=== PATIENT | female | born 1940 | race Caucasian/White ===

== ENCOUNTER 2021-09-02 11:30 | Inpatient (IN) | payer MEDICARE, SELFPAY ==
[2021-09-02] VITALS (7 sets, daily range): BP systolic 129–173; BP diastolic 72–93; PULSE 53–70; RESP 16–20; TEMP 37; O2SAT 92–96; BMI 31.8; BMI 32.3
--- NOTE | 2021-09-02 | CT_ITS ---
WS: [id number] CT HEAD NONCONTRAST HISTORY: STROKE ALERT TECHNIQUE: Contiguous axial imaging performed through the brain in 2.5 mm imaging. Bone and soft tiss ue windows. Sagittal and coronal reformats reviewed. All CT scans at [facility] use at least one of these dose optimization techniques: automated exposure control; mA and/or kV adjustment per pa tient size (includes targeted exams where dose is matched to clinical indication); or iterative recon struction. DLP: 807.65 mGy-cm. COMPARISON: 01/24/2014 No acute intracranial hemorrhage, midline shift or mass effect. There is extensive chronic white matter ischemic disease and numerous bilateral lacunar infarcts. Mod erate progression of the chronic ischemic changes in the infarct since the prior examination. Large l acunar infarct involves the LEFT caudate head and the internal capsule. Large lacunar infarct in the RIGHT thalamus. There are additional smaller lacunae. No focal area of sulcal effacement. Ventricles: Normal size with no hydrocephalus. Paranasal sinuses: As visualized are clear. Mastoid air cells: Well pneumatized. Calvarium and scalp: Skull is intact with no soft tissue edema or swelling. CT/CT head wo con* [id number] IMPRESSION: 1. No acute hemorrhage or edema. 2. Advanced chronic microvascular ischemic disease with numerous bilateral lac unar infarcts. Chronic ischemic disease and lacunar infarcts have progressed si nce 01/24/2014.
--- NOTE | 2021-09-02 11:41 | CT_ITS ---
WS: [id number] CT ANGIOGRAM CEREBRAL AND CAROTID ARTERIES HISTORY: cva TECHNIQUE: CT angiogram is performed of the carotid and cerebral arteries. During arterial injection imaging is obtained from the skull vertex to the aortic arch in 1.25 mm imaging. Coronal and sagittal reformats are submitted. Additional multi planar reformats of the carotid and cerebral arteries are submitted, MIP imaging also reviewed. NASCET criteria utilized. [facility] e at least one of these dose optimization techniques: automated exposure control; mA and/or kV adjust ment per patient size (includes targeted exams where dose is matched to clinical indication); or iter ative reconstruction. CONTRAST: Omnipaque 350; 95 mL IV. DLP: 4879.11 mGy.cm COMPARISON: None available. Carotid Angiogram: Right carotid: Common carotid artery: Tortuous with intimal thickening and plaque. No high-grade stenosis. Internal carotid artery: Moderate amount of plaque in the proximal ICA. There is a very large loop wi th dense calcified plaque. Calculated at 51%. External carotid artery: Patent. Left carotid: Common carotid artery: Arises normally from the aorta. Tortuous loop and atherosclerotic plaque. Port ions of the proximal ICA are obscured by dense contrast. Internal carotid artery: Tortuous ICA crosses the midline to the RIGHT. Calculated stenosis 37%. External carotid artery: Patent. Right vertebral artery: Intermittently visualized very small caliber RIGHT vertebral artery. Left vertebral artery: Tortuous with plaque. No occlusion. Subclavian arteries: 50% stenosis involving the origin of the LEFT subclavian artery. Very tortuous s ubclavian arteries. Upper thorax: Significantly degraded by motion. Heavy atherosclerotic plaque within the aorta. Thyroid gland: Atrophic LEFT thyroid lobe. Osseous structures: Severe degenerative disc disease and spondylosis throughout the cervical spine. CEREBRAL ANGIOGRAM: Intracranial vertebral arteries: Very small caliber distal RIGHT vertebral artery. Normal LEFT verteb ral artery. Basilar artery: No significant stenosis or occlusion. No aneurysm. Intracranial Internal carotid arteries: Patent but tortuous. Calcified plaque with no stenosis. Middle cerebral arteries: Normal. Anterior cerebral arteries and ACOM: Normal. Posterior cerebral arteries and PCOM's: Normal. Dural venous sinuses are normally enhancing. Mastoid air cells: Normal. Paranasal sinuses: Normal. Calvarium: Normal. CT/CT angio headneck* [id number] IMPRESSION: 1. Marked tortuosity of the carotid and subclavian arteries bilaterally. 2. There is extensive calcified plaque and intimal thickening throughout the c arotid arteries. Highest amount of plaque is in the proximal RIGHT ICA with beata nosis measured at 51%. 3. There is a short segment of the LEFT common carotid artery which is poorly visualized due to high density contrast within the jugular vein obscuring the c arotid artery. 4. Intermittently visualized and small caliber RIGHT vertebral artery. This ma y be congenital or due to atherosclerotic disease. 5. At least 50% stenosis involving the origin of the LEFT subclavian artery.
--- NOTE | 2021-09-02 11:41 | ECG_ITS ---
[facility] Test Date: 2021-09-02 Pat Name: Cynthia Taveras Department: Room: Gender: Female Drum Builder: : 1940 Requested By: Augie Smith Order Number: [id number] Murphy MD: Christophe Lakhani M.D. Measurements Intervals [place] Rate: 56 P: 7 CT: 144 QRS: 21 QRSD: 94 T: -36 QT: 472 QTc: 456 Interpretive Statements SINUS BRADYCARDIA LEFT VENTRICULAR HYPERTROPHY AND ST-T CHANGE [VOLTAGE CRITERIA PLUS ST/T ABNORMALITY] No previous ECG available for comparison Electronically Signed On 09-02-2021 16:45:03 BOTTOM BRUSHER by Christophe Lakhani M.D. [id number]
--- NOTE | 2021-09-02 11:44 | ED_ITS ---
HPI - Neuro Symptoms/Deficit General: Chief Complaint: Neuro Symptoms/Deficit Stated Complaint: SLURRED SPEECH Time Seen by Provider: 09/02/21 11:35 History of Present Illness: HPI Narrative: 81-year-old female history of previous stroke presents due to garbled speech and expressive aphasia. Symptoms started approximately 45 minutes prior to arrival and 10:50. She denies any blood thinners. Denies recent surgery or GI bleed. Denies any focal numbness weakness or tingling. Denies any headache. Review of Systems Narrative: - CONSTITUTIONAL: Denies weight loss, fever and chills. - HEENT: Denies changes in vision and hearing. - RESPIRATORY: Denies SOB and cough. - CV: Denies palpitations and CP. - GI: Denies abdominal pain, nausea, vomiting and diarrhea. - : Denies dysuria and urinary frequency. - MSK: Denies myalgia and joint pain. - SKIN: Denies rash and pruritus. - NEUROLOGICAL: As above - PSYCHIATRIC: Denies suicidal ideation NIH stroke score NIHSS: Level Of Consciousness - 1a: 0 Level Of Consciousness Questions - 1b: Both Correct Level Of Consciousness Commands - 1c: Both Correct Best Gaze - 2: Normal Visual Richardson - 3: No Visual Loss Facial Palsy - 4: Normal Motor Arm Right - 5: No Drift Motor Arm Left - 5: Drift Motor Leg Right - 6: No Drift Motor Leg Left - 6: No Drift Limb Ataxia - 7: Present In One Limb Sensory - 8: Normal Best Language - 9: Mild/Moderate Aphasia Dysarthia - 10: Mild/Moderate Dysarthia Extinction And Inattention - 11: 0 Score: Total Score: 4 Physical Exam Narrative: EXAM NARRATIVE: - GENERAL: Alert and oriented x 3. No acute distress. Well-nourished. - EYES: EOMI. Anicteric. - HENT: Atraumatic, no C-spine tenderness. Moist mucous membranes. No scleral icterus. No cervical lymphadenopathy. - LUNGS: Clear to auscultation bilaterally. No accessory muscle use. Equal lung sounds bilaterally. No respiratory distress. - CARDIOVASCULAR: Regular rate and rhythm. No murmur. No JVD. - ABDOMEN: Soft, non-tender and non-distended. Negative CVA tenderness bilaterally, no rebound or guarding, negative Osborne sign. No palpable masses. - EXTREMITIES: No edema. Non-tender. - SKIN: No rashes or lesions. Warm. - NEUROLOGIC: GCS 15, no meningismus, OTHERWISE ABOVE - PSYCHIATRIC: Cooperative. Appropriate mood and affect. Course Vital Signs: Vital signs: Vital Signs Pulse Rate 53 L 09/02/21 14:06 Respiratory Rate 20 H 09/02/21 14:06 Blood Pressure 169/80 09/02/21 14:06 Pulse Oximetry 96 09/02/21 14:06 MDM - Neuro Symptoms/Deficit MDM Narrative: Medical decision making narrative: 81-year-old female presents due to dysarthria and expressive aphasia. She is hemodynamically stable afebril e nontoxic-appearing. As she has presentation within 1 hour from time of onset of symptoms and is not blood thinners and denies recent surgery or GI bleed neurology was consulted and evaluated patient at bedside. At this time there is concern for stroke and symptoms rapidly improved so TPA was held off at this time. CT scan does not reveal any intracranial hemorrhage or acute abnormality. CTA revealed several filling defects in the neck but no intracranial large arterial occlusion. Remainder of lab work and imaging reviewed. Discussed with hospitalist and they agreed patient would benefit from admission. Patient admitted in stable condition to. Further evaluation management per hospitalist team. Lab Data: Labs: Lab Results 09/02/21 09/02/21 09/02/21 11:20 11:20 11:20 WBC 7.2 10^3/uL 10^3/ uL (4.0-10.0) RBC 5.07 10^6/uL 10^6 /uL (4.1-5.3) Hgb 14.0 g/dL g/dL (11.5-15.3) Hct 44.5 % % (37.0-47.0) MCV 87.8 fl fl (81-99) MCH 27.6 pg L pg (28.0-34.0) MCHC 31.5 g/dL g/dL (30.0-36.0) RDW 13.5 % % (12.1-15.1) Plt Count 245 10^3/cmm 10^3 /cmm (130-400) MPV 12.4 fL H fL (7.4-10.4) Neut % (Auto) 63.2 % % Lymph % (Auto) 24.0 % % Evangeline % (Auto) 10.2 % % Eos % (Auto) 1.5 % % Baso % (Auto) 0.8 % % Neut # (Auto) 4.57 10^3/uL 10^3 /uL (1.8-7.7) Lymph # (Auto) 1.7 10^3/uL 10^3/ uL (0.8-4.8) Evangeline # (Auto) 0.7 10^3/uL 10^3/ uL (0.2-0.9) Eos # (Auto) 0.1 10^3/uL 10^3/ uL (0.0-0.8) Baso # (Auto) 0.1 10^3/uL 10^3/ uL (0.0-0.1) Nucleated RBC % (a uto) 0 % % Nucleated RBCs # 0.0 /100WBC /100W BC PT 12.50 SECONDS SEC ONDS (12.1-14.9) INR 0.91 (0.8-1.2) APTT 28.9 SECONDS SECO NDS (23.9-36.7) Sodium 143 mmol/L mmol/L (136-145) Potassium 3.6 mmol/L mmol/L (3.5-5.1) Chloride 105 mmol/L mmol/L (98-107) Carbon Dioxide 28 mmol/L mmol/L (22-29) Anion Gap 13.6 (5-19) BUN 15 mg/dL mg/dL (8-23) Creatinine 1.0 mg/dL H mg/dL (0.5-0.9) GFR Calculation Not Reportable Glucose 209 mg/dL H mg/dL (65-115) POC Glucose Calculated Osmolal ity 303 mOsm/kg H mOs m/kg (285-295) Calcium 8.9 mg/dL mg/dL (8.5-10.5) Total Bilirubin 0.4 mg/dL mg/dL (0.15-1.2) AST 12 U/L U/L (0-32) ALT 8 U/L U/L (0-33) Alkaline Phosphata se 62 IU/L IU/L (35-105) Total Protein 6.1 g/dL L g/dL (6.6-8.7) Albumin 3.4 g/dL L g/dL (3.5-5.2) Globulin 2.7 g/dL g/dL (1.3-4.6) Ethyl Alcohol < 10 mg/dL mg/dL (0-10) 09/02/21 11:56 WBC RBC Hgb Hct MCV MCH MCHC RDW Plt Count MPV Neut % (Auto) Lymph % (Auto) Evangeline % (Auto) Eos % (Auto) Baso % (Auto) Neut # (Auto) Lymph # (Auto) Evangeline # (Auto) Eos # (Auto) Baso # (Auto) Nucleated RBC % (a uto) Nucleated RBCs # PT INR APTT Sodium Potassium Chloride Carbon Dioxide Anion Gap BUN Creatinine GFR Calculation Glucose POC Glucose 194 mg/dL H mg/dL (70-110) Calculated Osmolal ity Calcium Total Bilirubin AST ALT Alkaline Phosphata se Total Protein Albumin Globulin Ethyl Alcohol EKG Data^: EKG 1: Other EKG comments: Sinus bradycardia, rate of 56, LVH is present, no sign of acute ischemia or other acute abnormality. Critical Care Time Critical Care Time: Critical Care Time: Yes Total Critical Care Time: 30 Attestation: This case had a high probability of a clinically significant, zeina den, or life threatening deterioration of this patient's condition which required my full and direct attention, intervention and personal management. Discharge Plan Discharge Prescriptions: No Action Prozac 40 mg Capsule 40 mg PO DAILY RF: 0 trazodone 50 mg Tablet 50 mg PO BEDTIME RF: 0 atenolol 100 mg Tablet 100 mg PO DAILY RF: 0 Fosamax 70 mg Tablet 70 mg PO Q7D RF: 0 lovastatin 40 mg Tablet 40 mg PO DAILY RF: 0 Aspir-81 81 mg Tablet,Delayed Release (Dr/Ec) 81 mg PO DAILY RF: 0 clonidine HCl 0.2 mg Tablet 0.2 mg PO BID RF: 0 amlodipine 10 mg Tablet 10 mg PO DAILY RF: 0 Lopid 600 mg Tablet 600 mg PO BID RF: 0 Prilosec 20 mg Capsule,Delayed Release(Dr/Ec) 20 mg PO BID RF: 0 benazepril 20 mg Tablet 20 mg PO DAILY RF: 0 Lasix 20 mg Tablet 20 mg PO DAILY RF: 0 Lantus Solostar U-100 Insulin 100 unit/mL (3 mL) Insulin Pen 50 unit SUBCUT DAILY RF: 0 potassium chloride 20 mEq Tablet Extended Release 20 meq PO DAILY RF: 0 Coding Level of Care Code ED Television Station Manager for Chg Fwd
[2021-09-02 11:56] LABS: Basophils # 0.1 10^3/uL (0.0-0.1); Basophils % 0.8 %; Eosinophils # 0.1 10^3/uL (0.0-0.8); Eosinophils % 1.5 %; Hematocrit 44.5 % (37.0-47.0); Lymphocytes # 1.7 10^3/uL (0.8-4.8); Mean Corpuscular HGB Conc 31.5 g/dL (30.0-36.0); Mean Corpuscular Hemoglobin 27.6 pg (28.0-34.0); Mean Corpuscular Volume 87.8 fl (81-99); Mean Platelet Volume 12.4 fL (7.4-10.4); Monocytes # 0.7 10^3/uL (0.2-0.9); Monocytes % 10.2 %; Neutrophils # 4.57 10^3/uL (1.8-7.7); Neutrophils % 63.2 %; Nucleated Red Blood Cells % 0 %; Platelet Count 245 10^3/cmm (130-400); Red Blood Count 5.07 10^6/uL (4.1-5.3); Red Cell Distribution Width 13.5 % (12.1-15.1); White Blood Count 7.2 10^3/uL (4.0-10.0)
[2021-09-02 11:59] LABS: Glucose Point of Care 194 mg/dL (70-110)
[2021-09-02 12:19] LABS: INR 0.91 (0.8-1.2)
[2021-09-02 12:20] LABS: Partial Thromboplastin Time 28.9 SECONDS (23.9-36.7)
[2021-09-02 12:29] LABS: Alanine Aminotransferase 8 U/L (0-33); Albumin Level 3.4 g/dL (3.5-5.2); Alkaline Phosphatase 62 IU/L (35-105); Anion Gap 13.6 (5-19); Aspartate Amino Transferase 12 U/L (0-32); Blood Urea Nitrogen 15 mg/dL (8-23); Calcium 8.9 mg/dL (8.5-10.5); Carbon Dioxide 28 mmol/L (22-29); Chloride 105 mmol/L (98-107); Globulin 2.7 g/dL (1.3-4.6); Glucose 209 mg/dL (65-115); Osmolality Calculated 303 mOsm/kg (285-295); Potassium 3.6 mmol/L (3.5-5.1); Sodium 143 mmol/L (136-145); Total Bilirubin 0.4 mg/dL (0.15-1.2); Total Protein 6.1 g/dL (6.6-8.7)
[2021-09-02 12:31] LABS: Alcohol Level < 10 mg/dL (0-10)
--- NOTE | 2021-09-02 12:52 | PC.PHAR ---
pt unable to verify medications-medications entered are meds that clarissa has filled recently-pt states she takes aspirin daily-
[2021-09-02] MEDS: iohexol 350 mg/mL 100 mL Btl IV (13:53)
--- NOTE | 2021-09-02 16:53 | P.HP_ITS ---
Providers/Chief Complaint Chief Complaint: SLURRED SPEECH History of Present Illness Cynthia Taveras is a 81 year old female with past medical history of diabetes, hypertension, dyslipidemia, CVA, came in with chief complaint of acute onset of garbled speech and expressive aphasia.Symptoms started approximately 45 minutes prior to arrival to the ER.Upon arrival in the ER she was seen by neurologist Dr. Ca and at that point in time since her symptoms had completely resolved she was not a candidate for TPA. Her NIH stroke scale on arrival was 4. When I examined the patient, she was alert awake oriented, speech was normal, denied any weakness, in any body part, denied any tingling numbness, headache confusion, dizziness, chest pain palpitations shortness of, any loss of bladder and bowel movement control. Pertinent imaging study: CT of the head without contrast: No acute intracranial pathology.Advanced chronic microvascular ischemic disease with numerous bilateral lacunar infarcts. CTA head and neck: No significant stenosis EKG: Sinus bradycardia,LVH Review of Systems Const: Denies: fever(s), chills, body aches, change in appetite or diaphoresis Card: Denies: palpitations, edema, swelling of feet/ankles, dyspnea on exertion, orthopnea or leg pain with exertion Resp: Denies: dyspnea, productive cough, wheezing or pain on inspiration GI: Denies: abdominal pain, nausea, vomiting, diarrhea or constipation : Denies: flank pain Musc: Denies: back pain, extremity pain or extremity swelling Neuro: Denies: headache(s), difficulty walking or confusion Medications/Allergies Home Medications Medication Instructions Recorded Confirmed Last Taken Type alendronate [Fosamax] 70 mg PO Q7D 09/02/21 09/02/21 Unknown History amlodipine 10 mg PO DAILY 09/02/21 09/02/21 Unknown History aspirin [Aspir-81] 81 mg PO DAILY 09/02/21 09/02/21 Unknown History atenolol 100 mg PO DAILY 09/02/21 09/02/21 Unknown History benazepril 20 mg PO DAILY 09/02/21 09/02/21 Unknown History clonidine HCl 0.2 mg PO BID 09/02/21 09/02/21 Unknown History fluoxetine [Prozac] 40 mg PO DAILY 09/02/21 09/02/21 Unknown History furosemide [Lasix] 20 mg PO DAILY 09/02/21 09/02/21 Unknown History gemfibrozil [Lopid] 600 mg PO BID 09/02/21 09/02/21 Unknown History insulin glargine [Lantus Solostar 50 unit SUBCUT DAILY 09/02/21 09/02/21 Unknown History U-100 Insulin] lovastatin 40 mg PO DAILY 09/02/21 09/02/21 Unknown History omeprazole [Prilosec] 20 mg PO BID 09/02/21 09/02/21 Unknown History potassium chloride 20 meq PO DAILY 09/02/21 09/02/21 Unknown History trazodone 50 mg PO BEDTIME 09/02/21 09/02/21 Unknown History Allergies Allergy/AdvReac Type Severity Reaction Status Date / Time Unable to Assess Allergy Unverified 09/02/21 12:51 Vitals/I&O/Wt Last Vital Signs Pulse 70 09/02/21 15:53 Resp 20 H 09/02/21 15:53 BP 169/80 09/02/21 14:06 Pulse Ox 92 09/02/21 15:53 Weight last 48 hrs Weight 78.97 kg Physical Exam Const: COMMON NORMALS: patient oriented x3 HENMT: COMMON NORMALS: normocephalic and atraumatic HEAD & SCALP: normocephalic and atraumatic Resp: COMMON NORMALS: clear to auscultation bilaterally AUSCULTATION: clear to auscultation bilaterally Cardio: COMMON NORMALS: regular rate, regular rhythm, S1 normal heart sound present, S2 normal heart sound present, No gallops present (Cardio), No murmurs present (Cardio), No rub (Cardio) and Peripheral pulses 2+ throughout RATE: regular rate RHYTHM: regular rhythm HEART SOUNDS: S1 normal heart sound present and S2 normal heart sound present PERIPHERAL PULSES: Peripheral pulses 2+ throughout GI: COMMON NORMALS: Normal to inspection, nondistended, normoactive bowel sounds present, Soft to palpation, non-tender, No hepatosplenomegaly present and no masses AUSCULTATION: Yes normoactive bowel sounds PALPATION: Yes Soft to palpation and Yes No hepatosplenomegaly present RECTAL EXAM: deferred Extremity: COMMON NORMALS: no clubbing, cyanosis or edema and no pedal edema Neuro: COMMON NORMALS: patient oriented x3 Data : 09/02/21 11:20 09/02/21 11:20 A&P Assessment and plan (1) TIA (transient ischemic attack): Neuro check every 4 hours 2D echo PT OT eval Speech evaluation Permissive hypertension Telemetry monitoring Aspirin 81 mg p.o. daily Plavix 75 mg p.o. Lipitor 20 mg p.o. daily Status: Acute (2) History of CVA (cerebrovascular accident): Status: Acute (3) Diabetes: SSI Carbohydrate consistent diet Monitor fingerstick glucose Status: Acute (4) Hypertension: Permissive hypertension for 24 to 48 hours <[id number] Status: Acute (5) Dyslipidemia: Status: Acute Attestations Medical Necessity Statement*: Patient is still in hospital for management of TIA. Coding Level of Care Code Acute [employer] Cook for Dania Romo Diagnoses TIA (transient ischemic attack) G45.9 History of CVA (cerebrovascular accident) Z86.73 Diabetes E11.9 Hypertension I10 Dyslipidemia E78.5
--- NOTE | 2021-09-02 18:48 | PM.SAN ---
Stroke Alert Activation ED Arrival Date: 09/02/21 ED Arrival Time: 11:29 ED Physican at Bedside: 11:30 Last Known Normal/at Baseline: < 1 hour ago Other Last Known Well Infomation: Stroke alert was called at the request of [facility] as they were in route with this 81-year-old woman. Her brother activated EMS while they were at the cell phone store because suddenly she could not speak and was not making sense. I called the emergency department a few minutes after the stroke alert was called and the patient was just rolling through the door on the way to CAT scan. I talked with Dr. Vargas and he indicated that he would evaluate the patient right away and let me know whether neurologic input was needed. I communicated with the corporate safety coordinator at 1128 and told her that I would be up if needed. She texted me a short time later and indicated that Dr. Smith would be more comfortable if I were to be there. I left the clinic and came directly to ER. I looked at the CAT scan after helping the ER doc to find it and found that the patient had diffuse white matter disease but no acute changes. She has an old lacunar in the left caudate. I examined the patient and found that she was moderately dysarthric, had severe left upper extremity ataxia and was significantly obtunded so that she was unable to answer questions accurately. I thought that her stroke scale score was underestimated by the fact that gait is not included and she appeared unstable so I did not get her up. I talked with the patient about TPA and asked the nurse to proceed with TPA. There was some miscommunication that delayed treatment by about 5 minutes and in that amount of time, while I was repeatedly examining the patient, her signs of stroke resolved. At that point I stood her up at the bedside she was able to balance without assistance. Her speech went from moderately dysarthric to easily understood. Her level of alertness improved. Her affect brightened. She had no drift and the marked ataxia of the left arm that was initially present on my exam resolved. I talked with Dr. Vargas's who saw this patient initially. He was convinced that she had expressive and receptive aphasia as she would follow no commands. She had no motor weakness as he watched her scooting around on the CAT scan table and moving her 4 extremities vigorously. These findings could suggest multiple emboli and should raise a question of cardiac arrhythmia. Stroke Alert Activated by: [facility] Stroke Alert Activation Time: 11:24 Stroke MD @ Bedside Time: :40 NIH Stroke Scale Time: :40 NIH stroke score NIHSS: Level Of Consciousness - 1a: 1 (Mildly obtunded) Level Of Consciousness Questions - 1b: One Correct Level Of Consciousness Commands - 1c: One Correct Best Gaze - 2: Normal Visual Richardson - 3: No Visual Loss Facial Palsy - 4: Normal Motor Arm Right - 5: No Drift Motor Arm Left - 5: Drift Motor Leg Right - 6: No Drift Motor Leg Left - 6: No Drift Limb Ataxia - 7: Present In One Limb Sensory - 8: Normal Best Language - 9: No Aphasia Dysarthia - 10: Mild/Moderate Dysarthia Extinction And Inattention - 11: 0 Score: Total Score: 6 Stroke Alert Data/Treatment Time to CT of Head: 11:30 CT Results Time: :40 CT Impression: Diffuse white matter disease. Old left caudate lacune Stroke Risk Factors: hypertension and obesity tPA Contraindication: tPA Contraindication: Treatment not indcated tPA Admin Prior to Arrival: No Patient & Family Educated on: Cause of Stroke, Treament Plan and tPA Risks/Benefits Other Patient & Family Education: I obtained permission for TPA from the patient and she repeatedly asked me why she was there. She had the appearance of transient global amnesia and that she asked the same questions over and over and she continued to do that even after most of her symptoms resolved. TPA was aborted because her examination normalized. Again, there should be strong emphasis to rule out a cardiac cause. Standardized Stroke Orders Used: Yes Critical Care Time Critical Care Time: 30 - 74 mins A&P Assessment and plan (1) Acute lacunar stroke: The best I could conclude was that this patient was having a stroke in the subcortical right hemisphere as she had dysarthria and left upper extremity ataxia. Unfortunately, she was seen earlier and had different findings when examined by Dr. Vargas with no motor findings and combination of expressive and receptive aphasia. Because her exam normalized she was no longer a candidate for TPA. Dr. Washburn estimated that her initial NIH stroke scale score was 6 and I obtained a score of 6 on my initial exam which resolved to a 1. Recommend prolonged arrhythmia monitoring and echocardiogram to search for cardiac source. CTA was negative. I spent 1 hour attending this patient. Status: Acute (2) Diabetes: Status: Acute (3) Hypertension: Status: Acute (4) History of CVA (cerebrovascular accident): Status: Acute Coding Level of Care Code Acute Nut Picker for [facility] Fwd Diagnoses Acute lacunar stroke I63.81 Diabetes E11.9 Hypertension I10 History of CVA (cerebrovascular accident) Z86.73
[2021-09-02] MEDS: pantoprazole DR 40 mg Tablet PO (19:45)
[2021-09-02 21:10] LABS: Bilirubin Urine Neg (Negative); Blood Urine Trace (Negative); Glucose Urine UA Norm (Normal); Ketones Urine Negative (Negative); Leukocyte Esterase Urine 2+ (Negative); Nitrate Urine Negative (Negative); Protein Urine 2+ (Negative); Specific Gravity, Urine 1.015 (1.005-1.030); Urine Appearance Cloudy (CLEAR); Urine Color Yellow (Yellow); Urobilinogen Urine Norm (Negative); pH Urine 5 (5-7)
[2021-09-02 21:11] LABS: Add Urine Microscopic? YES
[2021-09-02 21:12] LABS: Add Urine Culture? Yes; Bacteria Urine 2+ /hpf; WBC Urine TOO NUMEROUS TO CNT /hpf (0-5)
[2021-09-02 21:14] LABS: Glucose Point of Care 218 mg/dL (70-110)
[2021-09-02] MEDS: trazodone 50 mg Tablet PO (21:14)
[2021-09-02 21:17] LABS: Amphetamines Screen Urine Negative (Negative); Barbiturates Screen Urine Negative (Negative); Benzodiazepines Screen Urine Negative (Negative); Cocaine Screen Urine Negative (Negative); Opiate Screen Urine Negative (Negative); PCP Screen Urine Negative (Negative); THC Screen Urine Negative (Negative)
[2021-09-02] MEDS: insulin lispro 100 unit/1 mL SUBCUT (21:24)
[2021-09-03] VITALS: BP 116/61; PULSE 62; RESP 16; TEMP 36.3; O2SAT 90
[2021-09-03 04:00] VITALS: BP 117/61; PULSE 59; RESP 16; TEMP 36.8; O2SAT 92
[2021-09-03 05:35] LABS: Basophils % 0.6 %; Eosinophils # 0.2 10^3/uL (0.0-0.8); Eosinophils % 2.5 %; Hematocrit 39.6 % (37.0-47.0); Hemoglobin 12.2 g/dL (11.5-15.3); Lymphocytes # 1.6 10^3/uL (0.8-4.8); Lymphocytes % 23.9 %; Mean Corpuscular HGB Conc 30.8 g/dL (30.0-36.0); Mean Corpuscular Hemoglobin 26.9 pg (28.0-34.0); Mean Corpuscular Volume 87.4 fl (81-99); Mean Platelet Volume 12.3 fL (7.4-10.4); Monocytes % 14.3 %; Neutrophils # 3.98 10^3/uL (1.8-7.7); Neutrophils % 58.6 %; Nucleated Red Blood Cells % 0 %; Platelet Count 222 10^3/cmm (130-400); Red Blood Count 4.53 10^6/uL (4.1-5.3); Red Cell Distribution Width 13.6 % (12.1-15.1); White Blood Count 6.8 10^3/uL (4.0-10.0)
[2021-09-03 05:54] LABS: Anion Gap 10.9 (5-19); Blood Urea Nitrogen 17 mg/dL (8-23); Calcium 8.6 mg/dL (8.5-10.5); Carbon Dioxide 30 mmol/L (22-29); Chloride 104 mmol/L (98-107); Glucose 150 mg/dL (65-115); Osmolality Calculated 296 mOsm/kg (285-295); Potassium 3.9 mmol/L (3.5-5.1); Sodium 141 mmol/L (136-145)
[2021-09-03 06:41] LABS: Glucose Point of Care 156 mg/dL (70-110)
[2021-09-03 08:00] VITALS: BP 127/68; PULSE 70; RESP 16; TEMP 36.7; O2SAT 92
[2021-09-03] MEDS: clopidogrel 75 mg Tablet PO (08:29)
[2021-09-03] MEDS: aspirin 81 mg EC Tablet PO (08:29)
[2021-09-03] MEDS: atorvastatin 40 mg Tablet 20 MG PO (08:29)
[2021-09-03] MEDS: insulin lispro 100 unit/1 mL SUBCUT ×3 (08:30→17:03)
[2021-09-03 11:48] VITALS: BP 153/77; PULSE 65; RESP 16; TEMP 36.9; O2SAT 92
[2021-09-03 11:57] LABS: Glucose Point of Care 182 mg/dL (70-110)
[2021-09-03] MEDS: cefTRIAXone 1,000 MG in sodium chloride 0.9% (plus) 50 ML 100 MG IV (12:48)
--- NOTE | 2021-09-03 13:07 | P.DS_ITS ---
Discharge Providers Date of Admission: 09/02/21 15:20 Date of Discharge: September 03, 2021 Attending Provider at Admission: Andrei Awad MD Attending Provider at Discharge: Andrei Awad MD Diagnoses at Discharge Discharge Diagnosis (1) TIA (transient ischemic attack): Status: Acute (2) UTI (urinary tract infection): Status: Acute (3) Diabetes: Status: Acute (4) Hypertension: Status: Acute (5) History of CVA (cerebrovascular accident): Status: Acute Reason for Visit Reason for Visit: SLURRED SPEECH Hospital Course Hospital Course Cynthia Taveras is a 81 year old female with past medical history of diabetes, hypertension, dyslipidemia, CVA, came in with chief complaint of acute onset of garbled speech and expressive aphasia.Symptoms started approximately 45 minutes prior to arrival to the ER.Upon arrival in the ER she was seen by neurologist Dr. aC and at that point in time since her symptoms had completely resolved she was not a candidate for TPA. Her NIH stroke scale on arrival was 4. When I examined the patient, she was alert awake oriented, speech was normal, denied any weakness, in any body part, denied any tingling numbness, headache confusion, dizziness, chest pain palpitations shortness of, any loss of bladder and bowel movement control. Pertinent imaging study: CT of the head without contrast: No acute intracranial pathology.Advanced chronic microvascular ischemic disease with numerous bilateral lacunar infarcts. CTA head and neck: No significant stenosis.EKG: Sinus bradycardia,LVH. She was admitted for management of TIA.Standard stroke protocol will followed PT OT spl, permissive hypertension neuro check every 4 hours.Patient is on aspirin and statin as her home medication, Plavix was added.There was no focal weakness, no sensory loss, home exercise program was provided, she had no difficulty with speech no dysphagia. 2D echo done during the hospital stay: Normal LV size and systolic function, es timated EF 63%,no RWMA, mild LVH, grade 1 diastolic dysfunction, no gross valvular abnormalities. Patient was also managed for UTI: She was kept on IV antibiotics, and was discharged on p.o. Augmentin. Patient responded well to above medical management and is being discharged in stable condition to home.Primary care physician has been established to follow as an outpatient. She was continued on her other home medications. Patient responded well to the above medical management and is being discharged in stable condition to home. Physical Exam Const: COMMON NORMALS: patient oriented x3 HENMT: COMMON NORMALS: normocephalic and atraumatic HEAD & SCALP: normocephalic and atraumatic Resp: COMMON NORMALS: clear to auscultation bilaterally AUSCULTATION: clear to auscultation bilaterally Cardio: COMMON NORMALS: regular rate, regular rhythm, S1 normal heart sound present, S2 normal heart sound present, No gallops present (Cardio), No murmurs present (Cardio), No rub (Cardio) and Peripheral pulses 2+ throughout RATE: regular rate RHYTHM: regular rhythm HEART SOUNDS: S1 normal heart sound present and S2 normal heart sound present PERIPHERAL PULSES: Peripheral p ulses 2+ throughout GI: COMMON NORMALS: Normal to inspection, nondistended, normoactive bowel sounds present, Soft to palpation, non-tender, No hepatosplenomegaly present and no masses AUSCULTATION: Yes normoactive bowel sounds PALPATION: Yes Soft to palpation and Yes No hepatosplenomegaly present RECTAL EXAM: deferred Extremity: COMMON NORMALS: no clubbing, cyanosis or edema and no pedal edema Neuro: COMMON NORMALS: patient oriented x3 Discharge Data Data Completed and Pending: Completed Studies During Hospitalization Category Date Time Status CT angio headneck * [id number] Stat Cat Scan 09/02/21 11:[address] head wo con* 7 0450 Urgent Cat Scan 09/02/21 Completed CV. echo complete * [id number] Routine Ultrasound 09/03/21 17:25 Completed Pending at discharge Category Date Time Status Basic Metabolic P vikas AM LABS Lab 09/04/21 04:00 Ordered Basic Metabolic P vikas AM LABS Lab 09/05/21 04:00 Ordered Complete Blood Co unt w/Auto AM LABS Lab 09/04/21 04:00 Ordered Complete Blood Co unt w/Auto AM LABS Lab 09/05/21 04:00 Ordered Urine Culture Sta t Lab 09/02/21 18:50 Received Labs from last 24 hours 09/03/21 09/03/21 09/03/21 11:47 06:39 05:22 WBC RBC Hgb Hct MCV MCH MCHC RDW Plt Count MPV Neut % (Auto) Lymph % (Auto) Emmons % (Auto) Eos % (Auto) Baso % (Auto) Neut # (Auto) Lymph # (Auto) Emmons # (Auto) Eos # (Auto) Baso # (Auto) Nucleated RBC % (a uto) Nucleated RBCs # Sodium 141 Potassium 3.9 Chloride 104 Carbon Dioxide 30 H Anion Gap 10.9 BUN 17 Creatinine 1.1 H GFR Calculation Not Reportable Glucose 150 H POC Glucose 182 H 156 H Calculated Osmolal ity 296 H Calcium 8.6 Urine Color Urine Appearance Urine pH Ur Specific Gravit y Urine Protein Urine Glucose (UA) Urine Ketones Urine Blood Urine Nitrate Urine Bilirubin Urine Urobilinogen Ur Leukocyte Angela ase Urine RBC Urine WBC Ur Squamous Epith Cells Amorphous Sediment Urine Bacteria Urine Opiates Scre en Ur Barbiturates Sc reen Ur Phencyclidine S crn Ur Amphetamines Sc reen U Benzodiazepines Scrn Urine Cocaine Scre en U Marijuana (THC) Screen 09/03/21 09/02/21 09/02/21 05:22 21:06 18:50 WBC 6.8 RBC 4.53 Hgb 12.2 Hct 39.6 MCV 87.4 MCH 26.9 L MCHC 30.8 RDW 13.6 Plt Count 222 MPV 12.3 H Neut % (Auto) 58.6 Lymph % (Auto) 23.9 Emmons % (Auto) 14.3 Eos % (Auto) 2.5 Baso % (Auto) 0.6 Neut # (Auto) 3.98 Lymph # (Auto) 1.6 Emmons # (Auto) 1.0 H Eos # (Auto) 0.2 Baso # (Auto) 0.0 Nucleated RBC % (a uto) 0 Nucleated RBCs # 0.0 Sodium Potassium Chloride Carbon Dioxide Anion Gap BUN Creatinine GFR Calculation Glucose POC Glucose 218 H Calculated Osmolal ity Calcium Urine Color Urine Appearance Urine pH Ur Specific Gravit y Urine Protein Urine Glucose (UA) Urine Ketones Urine Blood Urine Nitrate Urine Bilirubin Urine Urobilinogen Ur Leukocyte Angela ase Urine RBC Urine WBC Ur Squamous Epith Cells Amorphous Sediment Urine Bacteria Urine Opiates Scre en Negative Ur Barbiturates Sc reen Negative Ur Phencyclidine S crn Negative Ur Amphetamines Sc reen Negative U Benzodiazepines Scrn Negative Urine Cocaine Scre en Negative U Marijuana (THC) Screen Negative 09/02/21 18:50 WBC RBC Hgb Hct MCV MCH MCHC RDW Plt Count MPV Neut % (Auto) Lymph % (Auto) Emmons % (Auto) Eos % (Auto) Baso % (Auto) Neut # (Auto) Lymph # (Auto) Emmons # (Auto) Eos # (Auto) Baso # (Auto) Nucleated RBC % (a uto) Nucleated RBCs # Sodium Potassium Chloride Carbon Dioxide Anion Gap BUN Creatinine GFR Calculation Glucose POC Glucose Calculated Osmolal ity Calcium Urine Color Yellow Urine Appearance Cloudy Urine pH 5 Ur Specific Gravit y 1.015 Urine Protein 2+ H Urine Glucose (UA) Norm Urine Ketones Negative Urine Blood Trace H Urine Nitrate Negative Urine Bilirubin Neg Urine Urobilinogen Norm Ur Leukocyte Angela ase 2+ H Urine RBC 5-10 H Urine WBC Too numerous to c nt H Ur Squamous Epith Cells None Amorphous Sediment Not Reportable Urine Bacteria 2+ H Urine Opiates Scre en Ur Barbiturates Sc reen Ur Phencyclidine S crn Ur Amphetamines Sc reen U Benzodiazepines Scrn Urine Cocaine Scre en U Marijuana (THC) Screen Vitals: Last Vital Signs Temp 98.5 F 09/03/21 11:48 Pulse 65 09/03/21 11:48 Resp 16 09/03/21 11:48 BP 153/77 09/03/21 11:48 Pulse Ox 92 09/03/21 11:48 Discharge Plan Discharge Patient Disposition: Home Condition: Stable Prescriptions: New clopidogrel 75 mg Tablet 75 mg PO DAILY 30 Days Qty: 30 RF: 1 Augmentin 500-125 mg tablet 1 tab PO BID Qty: 6 RF: 0 Continued Prozac 40 mg Capsule 40 mg PO DAILY RF: 0 trazodone 50 mg Tablet 50 mg PO BEDTIME RF: 0 atenolol 100 mg Tablet 100 mg PO DAILY RF: 0 Fosamax 70 mg Tablet 70 mg PO Q7D RF: 0 clonidine HCl 0.2 mg Tablet 0.2 mg PO BID RF: 0 amlodipine 10 mg Tablet 10 mg PO DAILY RF: 0 omeprazole 20 mg Capsule,Delayed Release(Dr/Ec) 20 mg PO BID RF: 0 benazepril 20 mg Tablet 20 mg PO DAILY RF: 0 Lasix 20 mg Tablet 20 mg PO DAILY RF: 0 Lantus Solostar U-100 Insulin 100 unit/mL (3 mL) Insulin Pen 50 unit SUBCUT DAILY RF: 0 potassium chloride 20 mEq Tablet Extended Release 20 meq PO DAILY RF: 0 lovastatin 40 mg Tablet 40 mg PO DAILY 30 Days Qty: 30 RF: 1 aspirin 81 mg Tablet,Delayed Release (Dr/Ec) 81 mg PO DAILY 30 Days Qty: 30 RF: 1 Discontinued gemfibrozil [Lopid] 600 mg Tablet 600 mg PO BID RF: 0 Discharge Orders: Discharge Order (Routine); Ordered 09/03/21 Ordered By: Andrei Awad Referrals: [facility] [Outside] ([facility] has accepted you onto their services. They will be calling you to set up a time to admit you to their services. If you have any questions please call them at [phone]. ) Eleonora Renteria FNP [Nurse Practitioner] - 09/11/21 2:00 pm (You will have a new patient/hospital follow up with Dr. Renteria on at 2:00 pm. If you have any questions or need to reschedule please call them at [phone].) Discharge Diet: Diabetic Discharge Activity: Resume usual activity Patient Instructions: Amoxicillin/Clavulanate Potassium (By mouth), Clopidogrel (By mouth), Stroke (DC), Opioid Safety Activity Restrictions/Additional Instructions: Patient was admitted in the hospital from 09/02/2021 and was discharged on 09/03/2021.She was admitted for the management of TIA as well as UTI. Discharge Attestations Time Spent in Discharge Care*: less than 30 min Specific Discharge Activities: educating patient, educating and/or supporting family/caregiver, discussing with pcp/other providers, discussing with telephonic case manager/social workers/dc planners, documenting/other paperwork and evaluating patient/reviewing data Status at Discharge: Cognitive status at discharge: cognitively intact , Behavioral status at discharge: cooperative , Functional status at discharge: independent ambulation Overall status at discharge: patient is back to baseline Quality Metrics Clinical Quality Measures During this hospital stay, did patient experience: None Coding Level of Care Code Acute Chg FW DC note Exam Detailed Diagnoses TIA (transient ischemic attack) G45.9 UTI (urinary tract infection) N39.0 Diabetes E11.9 Hypertension I10 History of CVA (cerebrovascular accident) Z86.73
--- NOTE | 2021-09-03 14:53 | PC.NURSE ---
gave patient discharge instructions and patient verbalized understanding of instructions. patient received meds from [facility] pharmacy. patient said to call her son for ride home. Called Long, son, , he said he is about an hour and a half away but he is on his way to get patient.
[2021-09-03] MEDS: pantoprazole DR 40 mg Tablet PO (17:04)
[2021-09-03 17:20] LABS: Glucose Point of Care 189 mg/dL (70-110)
--- NOTE | 2021-09-03 17:25 | USCV_ITS ---
Cynthia Taveras Age: 81 Gender: F : 1940 Exam Date: 09/03/2021 06:19 Ordering Phys: Andrei Awad MD Technologist: DENIS [place] [facility] [place]: TIA BP: 117 / 61 HR: 53 Rhythm: Sinus Technical Quality: Adequate MEASUREMENTS (Male / Female) Normal Values 2D ECHO LV Diastolic Diameter PLAX 4.0 cm 4.2 - 5.9 / 3.9 - 5.3 cm LV Systolic Diameter PLAX 2.7 cm IVS Diastolic Thickness 1.2 cm 0.6 - 1.0 / 0.6 - 0.9 cm IVS Systolic Thickness 1.8 cm LVPW Diastolic Thickness 1.1 cm 0.6 - 1.0 / 0.6 - 0.9 cm LVPW Systolic Thickness 2.0 cm LVOT Diameter 2.0 cm LV Ejection Fraction 2D Teich 61.9 % LV Ejection Fraction MOD 2C 64.2 % LV Ejection Fraction 2C AL 64.7 % LA Diameter 3.0 cm LA Width 4.0 cm LA Height 4.6 cm RA Width 3.6 cm RA Height 4.6 cm Aorta at Sinotubular Diameter 2.6 cm DOPPLER AV Peak Velocity 163.0 cm/s LVOT Peak Velocity 100.0 cm/s AV Area Cont Eq vti 2.0 cm squared AV Area Cont Eq pk 1.9 cm squared MV Area PHT 3.6 cm squared Mitral E to A Ratio 0.8 MV E' Velocity 45.0 cm/s Mitral E to MV E' Ratio 13.2 Mitral E to LV E' Lateral Ratio 9.9 Mitral E to LV E' Septal Ratio 20.5 TR Peak Velocity 281.0 cm/s TR Peak Gradient 31.6 mmHg Right Atrial Pressure 3.0 mmHg Pulmonary Artery Systolic Pressu 34.6 mmHg PV Peak Velocity 95.0 cm/s RV Acceleration Time 0.1 s RV Ejection Time 0.3 s RV AcT/ET 0.5 FINDINGS Left Ventricle Normal left ventricular size and systolic function, EF 63 %. No regional wall motion abnormalities. Mild left ventricular hypertrophy. Grade I/IV diastolic dysfunction (abnormal relaxation filling pattern), normal to mildly elevated filling pressures. Right Ventricle The right ventricle is normal in size and function. Right Atrium The right atrium is normal in size. Left Atrium The left atrium is normal in size. Mitral Valve No gross abnormalities noted Aortic Valve No gross abnormalities noted Tricuspid Valve No gross abnormalities noted Pulmonic Valve Pulmonic valve not well visualized. Pericardium Normal pericardium without effusion. Aorta Normal ascending aorta dimension. CONCLUSIONS Normal left ventricular size and systolic function, EF 63 %. No regional wall motion abnormalities. Mild left ventricular hypertrophy. Grade I/IV diastolic dysfunction (abnormal relaxation filling pattern), normal to mildly elevated filling pressures. Normal chamber sizes. No significant valvular abnormalities There is no pericardial effusion. No previous study is available for comparison. Technically difficult study because of the poor ultrasonic window. Dr Asia Pedro MD FACC (Electronically Signed) Final Date: 03 September 2021 12:46 S
[2021-09-03 17:33] VITALS: BP 153/77; PULSE 65; RESP 16; TEMP 36.9; O2SAT 92
== END 2021-09-03 17:35 | disposition home health service (06) | DRG 69 ==
LOC: ER 13:51 → MEDSURG 18:42
PROVIDERS: Admitting Provider Internal Medicine; Emergency Provider Emergency Medicine; Visit Provider Internal Medicine
DX: G45.9 Transient cerebral ischemic attack, unspecified (principal); R47.01 Aphasia; N39.0 Urinary tract infection, site not specified; I67.82 Cerebral ischemia; R47.89 Other speech disturbances; R47.1 Dysarthria and anarthria; R27.0 Ataxia, unspecified; G45.4 Transient global amnesia; R90.82 White matter disease, unspecified; E11.9 Type 2 diabetes mellitus without complications; I10 Essential (primary) hypertension; E78.5 Hyperlipidemia, unspecified; Z86.73 Personal history of transient ischemic attack (TIA), and cerebral infarction without residual deficits; Z79.4 Long term (current) use of insulin; Z79.82 Long term (current) use of aspirin
CPT/HCPCS: 36415; 36416; 70450; 70496; 70498; 80048; 80053; 80306; 80307; 81001; 82962; 85025; 85610; 85730; 87077; 87086; 87186; 92523; 92610; 93005; 93306; 96372; 96374; 97116; 97161; 97165; 99285; J0696; J1815; Q9967

== ENCOUNTER → 2021-09-11 14:00 | Outpatient (BNVA) | payer MEDICARE, SELFPAY | PROVIDERS: Visit Provider Nurse Practitioner Family | DX: G45.9 Transient cerebral ischemic attack, unspecified (principal); E11.65 Type 2 diabetes mellitus with hyperglycemia; Z79.4 Long term (current) use of insulin; E78.5 Hyperlipidemia, unspecified; I10 Essential (primary) hypertension; F41.9 Anxiety disorder, unspecified; F32.A Depression, unspecified; G47.00 Insomnia, unspecified | CPT/HCPCS: 80053; 80061; 82306; 82607; 83036; 84443; 85025 ==

== ENCOUNTER 2021-09-12 13:33 | Emergency (ER) | payer MEDICARE, SELFPAY ==
--- NOTE | 2021-09-12 13:38 | CT_ITS ---
WS: [id number] CT HEAD TECHNIQUE: Noncontrast CT of the head obtained from the skullbase to the vertex. CLINICAL INFORMATION: Symptoms of Acute Stroke COMPARISON: September 02, 2021 DLP: [address] scans at [facility] use at least one of these dose optimization techniques: automated e xposure control; mA and/or kV adjustment per patient size (includes targeted exams where dose is matc hed to clinical indication); or iterative reconstruction. FINDINGS: No evidence of intracranial hemorrhage or mass effect. Ventricular system and basal cisterns are jones nt. Moderate small vessel changes with moderate parenchymal volume loss. Chronic lacunar infarcts in the right frontal periventricular white matter, left basal ganglia, and right thalamus. This is simil ar to previous. Chronic lacunar infarcts in the left cerebellum unchanged from previous. Paranasal sinuses and mastoi d air cells are well aerated. Normal visualized posterior nasopharynx. CT/CT head wo con* [id number] IMPRESSION: 1. No evidence of intracranial hemorrhage or mass effect. 2. Moderate small vessel changes moderate parenchymal volume loss. 3. Chronic lacunar infarcts involving the basal ganglia, thalamus and left cer ebellum are unchanged. 4. No acute intracranial findings. Notified Jd Biswas MD at 09/12/2021 2:08PM.
--- NOTE | 2021-09-12 13:38 | ECG_ITS ---
Test Date: 2021-09-12 Pat Name: Cynthia Taveras Department: Room: Gender: Female [employer] Supervisor: : 1940 Requested By: Jd Her Order Number: [id number] Murphy MD: Zarina Daily M.D. Measurements Intervals [place] Rate: 65 P: 16 RI: 155 QRS: -6 QRSD: 94 T: -7 QT: 423 QTc: 443 Interpretive Statements SINUS RHYTHM MODERATE VOLTAGE CRITERIA FOR LVH, CONSIDER NORMAL VARIANT [MEETS CRITERIA IN ONE OF: R(aVL), S(V1), R(V5), R(V5/V6)+S(V1)] NONSPECIFIC T-WAVE ABNORMALITY Compared to ECG 09/02/2021 11:44:48 T-wave abnormality now present Sinus bradycardia no longer present ST (T wave) deviation no longer present Electronically Signed On 09-13-2021 16:12:53 S[employer]IOR [employer] DEVELOPER by Zarina Daily M.D. [email or web address]
--- NOTE | 2021-09-12 13:39 | XR_ITS ---
WS: [id number] Exam: XR chest 1V portable [id number] Date/Time of Exam: 09/12/2021 1:39 PM Reason For Exam: ams Comparison 01/24/2014. The lungs are clear and fully expanded. Heart size is top limits normal. No pleural effusions. The me diastinum is not widened. Several healed right lower rib fractures are noted. XR/XR chest 1V portable [id number] IMPRESSION: 1. No acute cardiopulmonary finding.
[2021-09-12 13:44] VITALS: BP 104/61; PULSE 72; RESP 17; TEMP 36.7; O2SAT 98; BMI 27.4
--- NOTE | 2021-09-12 13:57 | W.ED.NEUROSD ---
HPI - Neuro Symptoms/Deficit General: Chief Complaint: Neuro Symptoms/Deficit Stated Complaint: POSSIBLE STROKE Time Seen by Provider: 09/12/21 13:38 History of Present Illness: HPI Narrative: Patient is a 81-year-old female past medical history of diabetes. She was diagnosed with a TIA/multiple lacunar infarcts and hospitalized worked up earlier this month. Discharged on aspirin Plavix and statin which she has been taking. She was at [place] [employer] this afternoon about 1230 when a fellow member noticed that she became dysarthric and slurred her speech. They called EMS who arrived at the scene about 20 minutes later. They agreed that she did have some speech problems. Seem to be mildly confused and had difficulty with gait. Patient initially refused transport to the emergency department but EMS at the scene felt that she was not able to make her own decisions and transported her here. Since then her symptoms have resolved She denies any headache numbness tingling in any of her distal extremities or face difficulty speaking or swallowing. Denies recent fevers chills chest pain nausea vomiting diarrhea altered mental status or syncope Review of Systems General: Reports: 10 or more systems reviewed and unremarkable except in HPI and below PFSH ED PFSH: Medical History Acute lacunar stroke Diabetes Dyslipidemia History of CVA (cerebrovascular accident) Hypertension TIA (transient ischemic attack) Social History Smoking and tobacco status: former smoker Second hand smoke exposure: No Alcohol intake: never Lives independently: No Household members: friend(s) Marital status: Single service: No Current occupational status: disabled Current gender identity: Female Special brian needs: No Agree to transfusion: Yes Financial difficulty paying for basics: Hard NIH stroke score NIHSS: Level Of Consciousness - 1a: 0 Level Of Consciousness Questions - 1b: Both Correct Level Of Consciousness Commands - 1c: Both Correct Best Gaze - 2: Normal Visual Richardson - 3: No Visual Loss Facial Palsy - 4: Normal Motor Arm Right - 5: No Drift Motor Arm Left - 5: No Drift Motor Leg Right - 6: No Drift Motor Leg Left - 6: No Drift Limb Ataxia - 7: Absent Sensory - 8: Normal Best Language - 9: No Aphasia Dysarthia - 10: Normal Extinction And Inattention - 11: 0 Score: Total Score: 0 Physical Exam Const: COMMON NORMALS: no acute distress, average body habitus, patient oriented x3 and alert EXAM LIMITATIONS: no altered mental status ORIENTATION/CONSCIOUSNESS: Yes oriented to person, Yes oriented to place and Yes oriented to time HENMT: COMMON NORMALS: normocephalic and atraumatic HEAD & SCALP: normocephalic and atraumatic Eye: COMMON NORMALS: Equal, round and reactive pupils present and EOMs intact bilaterally PUPIL: Yes Equal, round and reactive pupils present Neck/C-Spine: COMMON NORMALS: full ROM, no lymphadenopathy and supple Resp: COMMON NORMALS: normal respiratory effort and No retractions Cardio: COMMON NORMALS: regular rate, regular rhythm and Peripheral pulses 2+ throughout RATE: regular rate RHYTHM: regular rhythm PERIPHERAL PULSES: Peripheral pulses 2+ throughout GI: COMMON NORMALS: Normal to inspection, nondistended, normoactive bowel sounds present, Soft to palpation and non-tender PALPATION: Yes Soft to palpation Extremity: COMMON NORMALS: normal to inspection, full ROM, capillary refill normal, no joint enlargement, no clubbing, cyanosis or edema and no pedal edema Neuro: AQUILES COMA SCALE: document GCS findings Alb[place] coma scale eye opening: Spontaneous [place] coma scale verbal response: Orientated [place] coma scale motor response: Extension Aquiles coma scale total score: 11 COMMON NORMALS: patient oriented x3, CN's II-XII intact bilaterally, moves all extremities, no focal motor deficits and no sensory deficits noted SENSORIUM/ORIENTATION: Yes alert, Yes oriented to person, Yes oriented to place and Yes oriented to time COORDINATION/BALANCE: [id number] test normal and Normal rapid alternating movements of the distal upper extremity present (Neuro) SPEECH: speech normal GAIT: Yes Normal gait present SENSORY EXAM: Yes extremities COORDINATION: [id number] test normal and rapid alternating movement UE normal Psych: COMMON NORMALS: mental status grossly normal Skin: COMMON NORMALS: no rashes or lesions noted and no wounds GENERAL SKIN EXAM: no rashes or lesions noted Course ED course: Patient CT was negative she is returned to normal. Spoke to the patient's neurologist who agrees to see her in clinic but does not feel like she would benefit from an admission since she has been worked up so recently. Did verify that she is taking her antiplatelet medicines and antilipid medicines. Will make sure that she cannot ambulate on her own if that is the case her labs come back fairly unremarkable then we will be able to discharge her Patient's laboratory values unremarkable. She is able to ambulate on h her own. Will discharge at this time. Will need to help Vital Signs: Vital signs: Vital Signs Temperature 98.0 F 09/12/21 13:44 Pulse Rate 65 09/12/21 14:00 Respiratory Rate 20 H 09/12/21 14:00 Blood Pressure 132/71 09/12/21 14:00 Pulse Oximetry 94 09/12/21 14:00 MDM - Neuro Symptoms/Deficit MDM Narrative: Medical decision making narrative: Patient is 81-year-old female with a recent stroke who is here with a brief episode of dysarthria and confusion Patient is awake alert and oriented. Symptoms have seemed to be resolved. No neurological deficits and is in a NIH stroke scale of 0. Going get CT CTA to look for any new changes. General stroke work-up and will tenisha case with neurologist her neurologist Lab Data: Labs: Lab Results 09/12/21 09/12/21 09/12/21 14:04 14:35 14:35 WBC 8.7 10^3/uL 10^3/ uL (4.0-10.0) RBC 4.82 10^6/uL 10^6 /uL (4.1-5.3) Hgb 13.0 g/dL g/dL (11.5-15.3) Hct 42.7 % % (37.0-47.0) MCV 88.6 fl fl (81-99) MCH 27.0 pg L pg (28.0-34.0) MCHC 30.4 g/dL D g/dL (30.0-36.0) RDW 13.7 % % (12.1-15.1) Plt Count 275 10^3/cmm 10^3 /cmm (130-400) MPV 11.4 fL H fL (7.4-10.4) Neut % (Auto) 66.8 % % Lymph % (Auto) 18.8 % % Lamar % (Auto) 11.2 % % Eos % (Auto) 2.1 % % Baso % (Auto) 0.8 % % Neut # (Auto) 5.81 10^3/uL 10^3 /uL (1.8-7.7) Lymph # (Auto) 1.6 10^3/uL 10^3/ uL (0.8-4.8) Lamar # (Auto) 1.0 10^3/uL H 10^ 3/uL (0.2-0.9) Eos # (Auto) 0.2 10^3/uL 10^3/ uL (0.0-0.8) Baso # (Auto) 0.1 10^3/uL 10^3/ uL (0.0-0.1) Nucleated RBC % (a uto) 0 % % Nucleated RBCs # 0.0 /100WBC /100W BC Sodium 143 mmol/L mmol/L (136-145) Potassium 3.9 mmol/L mmol/L (3.5-5.1) Chloride 105 mmol/L mmol/L (98-107) Carbon Dioxide 29 mmol/L mmol/L (22-29) Anion Gap 12.9 (5-19) BUN 13 mg/dL mg/dL (8-23) Creatinine 1.3 mg/dL H mg/dL (0.5-0.9) GFR Calculation Not Reportable Glucose 190 mg/dL H mg/dL (65-115) POC Glucose 195 mg/dL H mg/dL (70-110) Calculated Osmolal ity 301 mOsm/kg H mOs m/kg (285-295) Calcium 9.1 mg/dL mg/dL (8.5-10.5) Total Bilirubin 0.4 mg/dL mg/dL (0.15-1.2) AST 12 U/L U/L (0-32) ALT 8 U/L U/L (0-33) Alkaline Phosphata se 53 IU/L IU/L (35-105) Total Protein 5.6 g/dL L g/dL (6.6-8.7) Albumin 3.1 g/dL L g/dL (3.5-5.2) Globulin 2.5 g/dL g/dL (1.3-4.6) Discharge Plan Discharge Clinical Impression: TIA (transient ischemic attack) Condition: Stable Prescriptions: No Action fluoxetine [Prozac] 40 mg Capsule 40 mg PO DAILY RF: 0 trazodone 50 mg Tablet 50 mg PO BEDTIME RF: 0 atenolol 100 mg Tablet 100 mg PO DAILY RF: 0 alendronate [Fosamax] 70 mg Tablet 70 mg PO Q7D RF: 0 clonidine HCl 0.2 mg Tablet 0.2 mg PO BID RF: 0 amlodipine 10 mg Tablet 10 mg PO DAILY RF: 0 omeprazole 20 mg Capsule,Delayed Release(Dr/Ec) 20 mg PO BID RF: 0 benazepril 20 mg Tablet 20 mg PO DAILY RF: 0 furosemide [Lasix] 20 mg Tablet 20 mg PO DAILY RF: 0 Lantus Solostar U-100 Insulin 100 unit/mL (3 mL) Insulin Pen 50 unit SUBCUT QAM RF: 0 potassium chloride 20 mEq Tablet Extended Release 20 meq PO DAILY RF: 0 clopidogrel 75 mg Tablet 75 mg PO DAILY 30 Days Qty: 30 RF: 1 lovastatin 40 mg Tablet 40 mg PO DAILY 30 Days Qty: 30 RF: 1 aspirin 325 mg Tablet 325 mg PO DAILY RF: 0 multivitamin Tablet 1 tab PO DAILY RF: 0 Discharge Orders: Discharge ED (Routine); Ordered 09/12/21 Ordered By: Jd Biswas Discharge Diet: Usual diet Discharge Activity: Resume usual activity Patient Instructions: TIA Activity Restrictions/Additional Instructions: Follow-up with your neurologist in 3 to 5 days. She is aware of your visit here and she is expecting her call. Return to the emergency department with any other new or worsening symptoms in particular difficulty speaking walking standing numbness or tingling in your arms or legs or in your face facial droop confusion or vision changes as this may be the sign of a larger stroke Coding Level of Care Code ED Molded Goods Inspector Trimmer for Dania Romo Exam Comprehensive
[2021-09-12 14:00] VITALS: BP 132/71; PULSE 65; RESP 20; O2SAT 94
[2021-09-12 14:07] LABS: Glucose Point of Care 195 mg/dL (70-110)
--- NOTE | 2021-09-12 14:37 | PC.PHAR ---
pt states she takes care of her own medications-pt verified medications-pt states she takes aspirin 325mg daily ext med history shows 81mg daily last filled on 09/03/21 30d/s-notes are made in the pharmacy comments
[2021-09-12 14:43] LABS: Basophils # 0.1 10^3/uL (0.0-0.1); Basophils % 0.8 %; Eosinophils # 0.2 10^3/uL (0.0-0.8); Eosinophils % 2.1 %; Hematocrit 42.7 % (37.0-47.0); Lymphocytes # 1.6 10^3/uL (0.8-4.8); Lymphocytes % 18.8 %; Mean Corpuscular HGB Conc 30.4 g/dL (30.0-36.0); Mean Corpuscular Volume 88.6 fl (81-99); Mean Platelet Volume 11.4 fL (7.4-10.4); Monocytes % 11.2 %; Neutrophils # 5.81 10^3/uL (1.8-7.7); Neutrophils % 66.8 %; Nucleated Red Blood Cells % 0 %; Platelet Count 275 10^3/cmm (130-400); Red Blood Count 4.82 10^6/uL (4.1-5.3); Red Cell Distribution Width 13.7 % (12.1-15.1); White Blood Count 8.7 10^3/uL (4.0-10.0)
[2021-09-12 15:14] LABS: Alanine Aminotransferase 8 U/L (0-33); Albumin Level 3.1 g/dL (3.5-5.2); Alkaline Phosphatase 53 IU/L (35-105); Anion Gap 12.9 (5-19); Aspartate Amino Transferase 12 U/L (0-32); Blood Urea Nitrogen 13 mg/dL (8-23); Calcium 9.1 mg/dL (8.5-10.5); Carbon Dioxide 29 mmol/L (22-29); Chloride 105 mmol/L (98-107); Globulin 2.5 g/dL (1.3-4.6); Glucose 190 mg/dL (65-115); Osmolality Calculated 301 mOsm/kg (285-295); Potassium 3.9 mmol/L (3.5-5.1); Sodium 143 mmol/L (136-145); Total Bilirubin 0.4 mg/dL (0.15-1.2); Total Protein 5.6 g/dL (6.6-8.7)
[2021-09-12 15:23] LABS: INR 0.98 (0.8-1.2)
== END 2021-09-12 16:12 | disposition home or self-care (01) ==
PROVIDERS: Emergency Provider Family Medicine
DX: G45.9 Transient cerebral ischemic attack, unspecified (principal); Z79.02 Long term (current) use of antithrombotics/antiplatelets; Z79.82 Long term (current) use of aspirin; Z79.4 Long term (current) use of insulin; E11.9 Type 2 diabetes mellitus without complications; E78.5 Hyperlipidemia, unspecified; Z86.73 Personal history of transient ischemic attack (TIA), and cerebral infarction without residual deficits; I10 Essential (primary) hypertension; Z87.891 Personal history of nicotine dependence
CPT/HCPCS: 36415; 36416; 70450; 71045; 80053; 82962; 85025; 85610; 85730; 93005; 99283

== ENCOUNTER → 2022-02-18 10:47 | Outpatient (BNVA) | payer MEDICARE, SELFPAY | PROVIDERS: Visit Provider Nurse Practitioner Family | DX: R53.83 Other fatigue (principal); D72.829 Elevated white blood cell count, unspecified | CPT/HCPCS: 71046 ==

== ENCOUNTER 2022-03-20 10:43 | Outpatient (CLI) | payer MEDICARE, SELFPAY ==
--- NOTE | 2022-03-20 10:59 | XR_ITS ---
WS: [email or web address] Exam: XR knee LT 3V* [id number] Date/Time of Exam: 03/20/2022 10:59 AM Reason For Exam: LEFT KNEE PAIN Moderately advanced tricompartmental degenerative change. No fracture or dislocation. Calcification o f the medial meniscus. Effusion in the suprapatellar bursa. Soft tissue calcifications in the patella tendon. Subchondral bone erosions seen in the lateral femoral condyle. XR/XR knee LT 3V* [id number] IMPRESSION: 1. Moderately advanced tricompartmental degenerative change. Chondrocalcinosis. Joint effusion. 2. No fracture.
--- NOTE | 2022-03-20 10:59 | XR_ITS ---
WS: [email or web address] Exam: XR lumbar spine f/e only [id number] Date/Time of Exam: 03/20/2022 11:15 AM Reason For Exam: FREQUENT FALLS/LUMBAR BACK PAIN There is significant anterolisthesis of L4 on L5 with about 13 mm forward movement of L4. There is al so significant anterolisthesis of L5 on S1 with about 11 mm forward movement of L5. No obvious fractu re. Questionable pars defect of L4. Marked facet arthropathy at all levels. Degenerative disc changes at L4-5 and L5-S1. Extensive aortoiliac atherosclerosis. XR/XR lumbar spine f/e only [id number] IMPRESSION: 1. Significant anterolisthesis of L4 on L5 and L5 on S1 as discussed above. Thi s is most pronounced in the flexion of the lumbar spine. 2. Questionable pars defect of L4. 3. Severe facet arthropathy especially at L4-5 and L5-S1. 4. Additional findings as detailed above.
== END 2022-03-20 10:44 | disposition home or self-care (01) ==
PROVIDERS: Visit Provider Nurse Practitioner Family
DX: M54.50 Low back pain, unspecified (principal); R29.6 Repeated falls; M25.562 Pain in left knee; M11.262 Other chondrocalcinosis, left knee
CPT/HCPCS: 72120; 73562

== ENCOUNTER → 2022-04-23 10:48 | Outpatient (BNVA) | payer MEDICARE, SELFPAY | PROVIDERS: Referring Provider Nurse Practitioner Family; Visit Provider Orthopaedic Surgery | DX: M17.12 Unilateral primary osteoarthritis, left knee (principal) | CPT/HCPCS: 20610; 99203 ==

== ENCOUNTER 2022-06-03 06:00 | Outpatient (RCR) | payer MEDICARE, SELFPAY | END 2022-06-25 23:59 | disposition home or self-care (01) | LOC: TPT 06:00 | PROVIDERS: Visit Provider Nurse Practitioner Family | DX: R29.6 Repeated falls (principal) | CPT/HCPCS: 97110; 97163 ==

== ENCOUNTER → 2022-06-12 09:58 | Outpatient (BNVA) | payer MEDICARE, SELFPAY | PROVIDERS: Visit Provider Nurse Practitioner Family | DX: M25.521 Pain in right elbow (principal); M79.89 Other specified soft tissue disorders | CPT/HCPCS: 73070 ==

== ENCOUNTER 2022-06-26 06:00 | Outpatient (RCR) | payer MEDICARE, SELFPAY | END 2022-07-25 23:59 | disposition home or self-care (01) | LOC: TPT 06:00 | PROVIDERS: Visit Provider Nurse Practitioner Family | DX: R29.6 Repeated falls (principal) | CPT/HCPCS: 97110 ==

== ENCOUNTER 2022-07-07 15:33 | Outpatient (CLI) | payer MEDICARE, SELFPAY ==
--- NOTE | 2022-07-07 15:43 | XR_ITS ---
WS: [email or web address] XR elbow RT min 3V* [id number] REASON FOR EXAM: L89.003 - Pressure ulcer of unspecified elbow, stage 3 FINDINGS: Plate and screw fixation of proximal most right ulna. Surgical appliances are in proper position and alignment and unchanged compared to 06/02/2022. There is deformity of the radial head compatible with old healed fracture. There is narrowing and subchondral sclerosis in the medial elbow joint space with small marginal oste ophytosis. There there is an ill-defined mottling of the soft tissue dorsal to the proximal end of the fixation plate. There is air either within the soft tissue or the olecranon bursa just dorsal to the olecranon . There are no underlying bony changes in the ulna or humerus. These findings were not present on 2021. XR/XR elbow RT min 3V* [id number] IMPRESSION: Soft tissue findings suggesting significant inflammatory process as above.
== END 2022-07-07 15:34 | disposition home or self-care (01) ==
LOC: LAB 15:36 → RAD 15:41
PROVIDERS: Visit Provider Nurse Practitioner Family
DX: I96 Gangrene, not elsewhere classified (principal); L89.00 Pressure ulcer of unspecified elbow; L98.492 Non-pressure chronic ulcer of skin of other sites with fat layer exposed
CPT/HCPCS: 11042; 73080; 99203; 99213

== ENCOUNTER → 2022-07-16 08:22 | Outpatient (BNVA) | payer MEDICARE, SELFPAY | PROVIDERS: Visit Provider Thoracic Surgery (Cardiothoracic Vascular Surgery) | DX: I96 Gangrene, not elsewhere classified (principal); L89.894 Pressure ulcer of other site, stage 4 | CPT/HCPCS: 11042 ==

== ENCOUNTER → 2022-07-24 09:43 | Outpatient (BNVA) | payer MEDICARE, SELFPAY | PROVIDERS: Referring Provider Thoracic Surgery (Cardiothoracic Vascular Surgery); Visit Provider Student in an Organized Health Care Education/Training Program | DX: T84.84XA Pain due to internal orthopedic prosthetic devices, implants and grafts, initial encounter (principal); S51.001A Unspecified open wound of right elbow, initial encounter; W19.XXXA Unspecified fall, initial encounter; Y79.2 Prosthetic and other implants, materials and accessory orthopedic devices associated with adverse incidents; S59.901A Unspecified injury of right elbow, initial encounter | CPT/HCPCS: 73080; 99203 ==

== ENCOUNTER → 2022-08-06 12:56 | Outpatient (BNVA) | payer MEDICARE, SELFPAY | PROVIDERS: Visit Provider Thoracic Surgery (Cardiothoracic Vascular Surgery) | DX: L89.894 Pressure ulcer of other site, stage 4 (principal); I96 Gangrene, not elsewhere classified | CPT/HCPCS: 11042 ==

== ENCOUNTER → 2022-08-13 08:41 | Outpatient (BNVA) | payer MEDICARE, SELFPAY | PROVIDERS: Visit Provider Thoracic Surgery (Cardiothoracic Vascular Surgery) | DX: I96 Gangrene, not elsewhere classified (principal); L89.894 Pressure ulcer of other site, stage 4 | CPT/HCPCS: 11042 ==

== ENCOUNTER 2022-08-20 11:05 | Outpatient (CLI) | payer MEDICARE, SELFPAY ==
--- NOTE | 2022-08-20 13:45 | CT_ITS ---
WS: [id number] CT RIGHT ELBOW, NONCONTRAST. HISTORY: hardware issues, possible ulcer. Technique: All CT scans at [facility] use at least one of these dose optimization techniques: automated exposure control; mA and/or kV adjustment per patient size (includes targeted exams where dose is matched to clinical indication); or iterative reconstruction. DLP: 120.67 mGy.cm COMPARISON: Radiographs 07/24/2020 There is significant motion artifact on this examination. Nondiagnostic quality. The location of the hardware and any hardware failure would be difficult to identified. Also soft tissue and bone injury would be difficult to visualize. CT/CT elbow RT wo con* [id number] IMPRESSION: 1. Nondiagnostic CT evaluation of the RIGHT elbow. 2. Contacted Dr. Leavitt's office. Can reattempt at no additional charge a nonco ntrast RIGHT elbow CT. Re-imaging may not be successful but we can attempt an a dditional study.
== END 2022-08-20 11:06 | disposition home or self-care (01) ==
LOC: RAD 11:12
PROVIDERS: PCP Nurse Practitioner Family; Visit Provider Student in an Organized Health Care Education/Training Program
DX: T84.84XA Pain due to internal orthopedic prosthetic devices, implants and grafts, initial encounter (principal)
CPT/HCPCS: 11042; 73200

== ENCOUNTER → 2022-08-27 07:56 | Outpatient (BNVA) | payer MEDICARE, SELFPAY | PROVIDERS: PCP Nurse Practitioner Family; Visit Provider Thoracic Surgery (Cardiothoracic Vascular Surgery) | DX: I96 Gangrene, not elsewhere classified (principal); L89.894 Pressure ulcer of other site, stage 4 | CPT/HCPCS: 11042 ==

== ENCOUNTER → 2022-09-03 08:07 | Outpatient (BNVA) | payer MEDICARE, SELFPAY | PROVIDERS: PCP Nurse Practitioner Family; Visit Provider Thoracic Surgery (Cardiothoracic Vascular Surgery) | DX: I96 Gangrene, not elsewhere classified (principal); L89.894 Pressure ulcer of other site, stage 4 | CPT/HCPCS: 11042; 87070; 87077; 87186; A6219 ==

== ENCOUNTER 2022-09-10 10:36 | Outpatient (CLI) | payer MEDICARE, SELFPAY ==
--- NOTE | 2022-09-10 16:00 | CT_ITS ---
WS: [id number] CT RIGHT ELBOW, NONCONTRAST. HISTORY: Repeat CT from 08/20/2022. Significant motion artifact on the original CT attempt. Technique: All CT scans at [facility] use at least one of these dose optimization techniques: automated exposure control; mA and/or kV adjustment per patient size (includes targeted exams where dose is matched to clinical indication); or iterative reconstruction. DLP: 89.32 mGy.cm COMPARISON: 08/20/2022. Radiograph 07/24/2022 Much improved appearance of the CT. There is still artifact from a small amount of breathing and also artifact from the hardware in the elbow. Plate and screw fixation involving the posterior proximal ulna. No definite lucency surrounding the s crews. The plate is apposed to the bone. Numerous soft tissue air collections are noted along the josh gical site associated with the plate in the superficial soft tissues. There is a soft tissue tract co ntaining air which is contiguous with the most distal ulnar screw. There is also extensive soft tissu e edema. Low-attenuation adjacent to the proximal ulna in the soft tissues. There is also a single fo cus of air. No acute fracture identified. No definite area of cortical destruction. CT/CT elbow RT wo con* [id number] IMPRESSION: 1. There is significant soft tissue abnormality along the posterior olecranon and proximal ulna. Most significant heterogeneity with a few small foci of air posterior to the olecranon. Suspicious but cannot confirm abscess. 2. Numerous foci of air in the soft tissues along the posterior proximal ulnar plate. If there is been no recent manipulation foci may be related to infectio n. There is a tract of air extending to the distal ulnar screw to the subcutane ous soft tissue. Soft tissue ulceration with infection likely.
== END 2022-09-10 10:37 | disposition home or self-care (01) ==
LOC: RAD 10:39
PROVIDERS: PCP Nurse Practitioner Family; Visit Provider Student in an Organized Health Care Education/Training Program
DX: S51.002A Unspecified open wound of left elbow, initial encounter (principal); T84.84XA Pain due to internal orthopedic prosthetic devices, implants and grafts, initial encounter; X58.XXXA Exposure to other specified factors, initial encounter; I96 Gangrene, not elsewhere classified; L89.894 Pressure ulcer of other site, stage 4
CPT/HCPCS: 11042; 73200

== ENCOUNTER 2022-09-16 07:29 | Emergency (ER) | payer MEDICARE, SELFPAY ==
[2022-09-16 07:40] VITALS: BP 131/54; PULSE 57; RESP 16; TEMP 35.8; O2SAT 92
--- NOTE | 2022-09-16 07:47 | XRR_ITS ---
PROCEDURE INFORMATION: Exam: XR Left Knee Exam date and time: 09/16/2022 9:00 AM Age: 82 years old Clinical indication: Injury or trauma; Fall; Blunt trauma; Knee; Left TECHNIQUE: Imaging protocol: Radiologic exam of the Left knee. Views: 3 views. COMPARISON: CR XR knee LT 3V* [id number] 03/20/2022 11:14 AM FINDINGS: Bones/joints: No fracture or dislocation. There is moderate tricompartmental degenerative changes, manifested by joint space narrowing, subchondral sclerosis, periarticular osteophytes and chondrocalcinosis, involving mainly the lateral compartment. Soft tissues: Normal. XR/XR knee LT 3V* [id number] IMPRESSION: 1. No acute injury. 2. Moderate tricompartmental osteoarthrosis, involving mainly the lateral compartment.
--- NOTE | 2022-09-16 07:47 | XRR_ITS ---
PROCEDURE INFORMATION: Exam: XR Left Femur Exam date and time: 09/16/2022 9:00 AM Age: 82 years old Clinical indication: Injury or trauma; Fall; Blunt trauma; Thigh or upper leg; Left TECHNIQUE: Imaging protocol: Radiologic exam of the Left femur. Views: 2 views. COMPARISON: CR XR knee LT 3V* [id number] 03/20/2022 11:14 AM FINDINGS: Bones/joints: No fracture or dislocation. [id number] tricompartmental osteoarthrosis of the left knee noted, manifested by joint space narrowing and periarticular osteophytes, involving mainly the lateral compartment. Soft tissues: Unremarkable. XR/XR femur LT min 2V* [id number] IMPRESSION: No acute injury.
--- NOTE | 2022-09-16 08:58 | PC.NURSE ---
Javy wrapped applied to left knee
[2022-09-16 09:03] VITALS: BP 152/71; PULSE 87; RESP 14; O2SAT 97
--- NOTE | 2022-09-16 16:38 | ED_ITS ---
HPI - Fall General: Chief Complaint: Fall Stated Complaint: Fell at [place] and wants to be checked Time Seen by Provider: 09/16/22 07:43 History of Present Illness: Patient is in today after a fall at the [employer] [facility]. Patient reports that she was over there with her family member and turned to grab a magazine when she just fell. She reports pain in her left knee. She denies that she hit her head or had any loss of consciousness. She denies hurting anywhere except her left knee and just above her left knee Associated symptoms-after fall: Denies chest pain, confusion, difficulty walking, headache(s) or vertigo Review of Systems Const: Denies: fever(s) or chills Card: Denies: chest pain or palpitations Resp: Denies: dyspnea, productive cough or non-productive cough Musc: Reports: other (Pain on her left anterior knee and left anterior thigh) Neuro: Denies: headache(s), numbness in extremities, weakness in extremities, sensory changes, lack of coordination, difficulty walking, vertigo, confusion, behavioral changes or Slurred speech present [facility] ED PFSH: Medical History Acute lacunar stroke Diabetes Dyslipidemia History of CVA (cerebrovascular accident) Hypertension Painful orthopaedic hardware TIA (transient ischemic attack) Wound, open, elbow Social History Smoking and tobacco status: former smoker Second hand smoke exposure: No Alcohol intake: never Lives independently: No Household members: friend(s) Marital status: Single service: No Current occupational status: disabled Current gender identity: Female Special brian needs: No Agree to transfusion: Yes Financial difficulty paying for basics: Hard Physical Exam Const: COMMON NORMALS: no acute distress, patient oriented x3 and alert Resp: COMMON NORMALS: normal respiratory effort, No use of accessory muscles and clear to auscultation bilaterally AUSCULTATION: clear to auscultation bilaterally Cardio: COMMON NORMALS: regular rate, regular rhythm, S1 normal heart sound present and S2 normal heart sound present RATE: regular rate RHYTHM: regular rhythm HEART SOUNDS: S1 normal heart sound present and S2 normal heart sound present Extremity: NARRATIVE EXTREMITY EXAM: Tenderness to palpation over left anterior knee over patella and then also anterior left thigh just above knee. No obvious bony deformity or soft tissue deformity appreciated. CSM within normal limits. Neuro: COMMON NORMALS: patient oriented x3, CN's II-XII intact bilaterally, moves all extremities and no focal motor deficits SENSORIUM/ORIENTATION: Yes alert Course Vital Signs: Vital signs: Vital Signs Temperature 96.5 F L 09/16/22 07:40 Pulse Rate 87 09/16/22 09:03 Respiratory Rate 14 09/16/22 09:03 Blood Pressure 152/71 09/16/22 09:03 Pulse Oximetry 97 09/16/22 09:03 MDM - Fall Medical Decision Making Consider knee contusion, fracture knee, fracture femur. Patient had moderate tenderness with light to medium palpation of the left anterior thigh just above the knee which was concerning given the patient stated age and history of a fall. Did go ahead and x-ray the knee and the femur. No acute injuries were seen by radiologist on the knee or femur. Discussed x-ray results with patient. Discussed conservative treatment for contusion. Follow-up with primary care provider as needed. Return to the ER for new or worsening symptoms. Lab Data Radiology Impressions Femur X-Ray 09/16/22 07:47 IMPRESSION: No acute injury. Knee X-Ray 09/16/22 07:47 IMPRESSION: 1. No acute injury. 2. Moderate tricompartmental osteoarthrosis, involving mainly the lateral compartment. Discharge Plan Discharge Patient Disposition: Home Clinical Impression: Contusion of left knee, initial encounter Osteoarthritis of left knee Qualifiers: Osteoarthritis type: unspecified Qualified Code(s): M17.12 - Unilateral primary osteoarthritis, left knee Fall Qualifiers: Encounter type: initial encounter Qualified Code(s): W19.XXXA - Unspecified fall, initial encounter Condition: Stable Prescriptions: No Action potassium chloride 20 mEq tablet extended release 20 meq PO DAILY Qty: 90 0RF benazepril 20 mg tablet 20 mg PO DAILY Qty: 90 0RF Lantus Solostar U-100 Insulin 100 unit/mL (3 mL) insulin pen 50 unit SUBCUT QAM 90 Days Qty: 45 0RF sulfamethoxazole-trimethoprim [Bactrim DS] 800-160 mg tablet 1 tab PO BID Qty: 20 0RF (DME) blood-glucose meter [Blood Glucose Monitoring] Kit See Rx Instructions .ROUTE .MEDSUPPLY Qty: 1 0RF Rx Instructions: As directed; pt to test 1 x day (DME) Blood Glucose Test Strip See Rx Instructions .ROUTE .MEDSUPPLY Qty: 100 4RF Rx Instructions: As directed atenolol 100 mg tablet See Rx Instructions .ROUTE .COMPLEX Qty: 90 0RF Dose Instruction: TAKE 1 TABLET EVERY DAY Rx Instructions: TAKE 1 TABLET EVERY DAY furosemide 20 mg tablet See Rx Instructions .ROUTE .COMPLEX Qty: 90 0RF Dose Instruction: TAKE 1 TABLET EVERY DAY Rx Instructions: TAKE 1 TABLET EVERY DAY amlodipine 10 mg tablet See Rx Instructions .ROUTE .COMPLEX Qty: 90 0RF Dose Instruction: TAKE 1 TABLET EVERY DAY Rx Instructions: TAKE 1 TABLET EVERY DAY omeprazole 20 mg capsule,delayed release(DR/EC) See Rx Instructions .ROUTE .COMPLEX Qty: 180 0RF Dose Instruction: TAKE 1 CAPSULE TWICE DAILY Rx Instructions: TAKE 1 CAPSULE TWICE DAILY trazodone 50 mg tablet See Rx Instructions .ROUTE .COMPLEX Qty: 90 0RF Dose Instruction: TAKE 1 TABLET AT BEDTIME Rx Instructions: TAKE 1 TABLET AT BEDTIME (DME) lancets [TRUEplus Lancets] 33 gauge misc See Rx Instructions .ROUTE .COMPLEX Qty: 300 0RF Dose Instruction: TEST BLOOD SUGAR THREE TIMES DAILY DIRECTED AND NEEDED FOR HYPOGLYCEMIA Rx Instructions: TEST BLOOD SUGAR THREE TIMES DAILY DIRECTED AND NEEDED FOR HYPOGLYCEMIA fluoxetine 40 mg capsule See Rx Instructions .ROUTE .COMPLEX Qty: 90 0RF Dose Instruction: TAKE 1 CAPSULE EVERY DAY Rx Instructions: TAKE 1 CAPSULE EVERY DAY alendronate 70 mg tablet See Rx Instructions .ROUTE .COMPLEX Qty: 12 0RF Dose Instruction: TAKE 1 TABLET ONE TIME WEEKLY ON WEDNESDAYS Rx Instructions: TAKE 1 TABLET ONE TIME WEEKLY ON WEDNESDAYS clonidine HCl 0.2 mg tablet See Rx Instructions .ROUTE .COMPLEX Qty: 180 0RF Dose Instruction: TAKE 1 TABLET TWICE DAILY Rx Instructions: TAKE 1 TABLET TWICE DAILY clopidogrel 75 mg tablet See Rx Instructions .ROUTE .COMPLEX Qty: 90 0RF Dose Instruction: TAKE 1 TABLET EVERY DAY Rx Instructions: TAKE 1 TABLET EVERY DAY lovastatin 40 mg tablet See Rx Instructions .ROUTE .COMPLEX Qty: 90 0RF Dose Instruction: TAKE 1 TABLET EVERY DAY Rx Instructions: TAKE 1 TABLET EVERY DAY aspirin 325 mg Tablet 325 mg PO DAILY multivitamin Tablet 1 tab PO DAILY Discharge Orders: Discharge ED (Routine); Ordered 09/16/22 Ordered By: Diana Kaur Referrals: Betty Sanchez FNP [Primary Care Provider] - Discharge Diet: Usual diet Patient Instructions: Knee Pain (ED) Activity Restrictions/Additional Instructions: Use Javy wrap as needed. Ice, rest, elevate the extremity. Follow-up with your primary care provider as needed for persisting symptoms. Return to the ER as needed for new or worsening symptoms. Coding Level of Care Code ED Laminating Machine Offbearer for Dania Romo
== END 2022-09-16 09:07 | disposition home or self-care (01) ==
PROVIDERS: Emergency Provider Nurse Practitioner Family; PCP Nurse Practitioner Family
DX: M17.12 Unilateral primary osteoarthritis, left knee (principal); S80.02XA Contusion of left knee, initial encounter; Z79.02 Long term (current) use of antithrombotics/antiplatelets; Z79.82 Long term (current) use of aspirin; Z79.4 Long term (current) use of insulin; E11.9 Type 2 diabetes mellitus without complications; E78.5 Hyperlipidemia, unspecified; Z86.73 Personal history of transient ischemic attack (TIA), and cerebral infarction without residual deficits; I10 Essential (primary) hypertension; Z87.891 Personal history of nicotine dependence; W18.39XA Other fall on same level, initial encounter; Y92.531 Health care provider office as the place of occurrence of the external cause
CPT/HCPCS: 73552; 73562; 99283

== ENCOUNTER → 2022-09-17 09:50 | Outpatient (BNVA) | payer MEDICARE, SELFPAY | PROVIDERS: PCP Nurse Practitioner Family; Visit Provider Orthopaedic Surgery | DX: S51.009A Unspecified open wound of unspecified elbow, initial encounter (principal) | CPT/HCPCS: 99203 ==

== ENCOUNTER → 2022-09-24 07:51 | Outpatient (BNVA) | payer MEDICARE, SELFPAY | PROVIDERS: PCP Nurse Practitioner Family; Visit Provider Nurse Practitioner Family | DX: I96 Gangrene, not elsewhere classified (principal); L89.894 Pressure ulcer of other site, stage 4 | CPT/HCPCS: 99212 ==

== ENCOUNTER 2022-10-06 11:59 | Day surgery (SDC) | payer MEDICARE, SELFPAY ==
[2022-10-06] VITALS (10 sets, daily range): BP systolic 146–189; BP diastolic 65–115; PULSE 51–86; RESP 14–21; TEMP 36.1–36.3; O2SAT 93–100; BMI 31.4
[2022-10-06 12:44] LABS: Glucose Point of Care 58 mg/dL (70-110)
[2022-10-06] MEDS: sodium chloride 0.9% 1,000 ML 30 ML IV (12:44)
--- NOTE | 2022-10-06 13:14 | ANES.PREANE2 ---
Pre-Anesthetic Assessment Height/Weight: Height 1.57 m Weight 78.018 kg Temp Pulse Resp BP Pulse Ox O2 Del Method 96.9 F L 51 L 18 155/73 94 10/06/22 12:21 10/06/22 12:21 10/06/22 12:21 10/06/22 12:21 10/06/22 12:21 10/06/22 12:21 Preop Diagnosis: Painful hardware right elbow Operation Date: 10/06/22 14:40 Proposed Procedures p hardware removal right elbow/ T84.84XA(Right) - Moo Looney MD Familial anesthetic complications: None Was Beta Heather taken within 24 hours: Yes Was Clonidine taken within 24 hours: N/A Last intake: Intake Last Liquid Date 10/06/22 Last Liquid Time 07:00 Last Solid Date 10/05/22 Last Solid Time 23:00 Social No alcohol and No tobacco Exam alert, oriented x 3, clear to auscultation bilaterally and regular rate & rhythm Airway Mallampati: Class II Dentition: false CV/HEM Hypertension GI Gastroesophageal Reflux Disease Metabolic Diabetes Mellitus and Hyperlipidemia Neuropsych Cerebrovascular Accident Anesthetic Plan ASA status: 3 Anesthesia: General Risk of > 500 ml blood loss (7ml/kg in children): No Medications/Allergies Home Medications Medication Instructions Recorded Confirmed Last Taken Type aspirin 325 mg tablet 325 mg PO DAILY rx filled on 09/12/21 10/06/22 Unknown History 09/03/21 for 81mg daily pt states she has but states she takes the 325mg tab she buys otc multivitamin 1 tab PO DAILY 09/12/21 10/06/22 10/06/22 History benazepril 20 mg tablet 20 mg PO DAILY #90 tabs 09/27/21 10/06/22 10/06/22 Rx insulin glargine 100 unit/mL (3 50 unit (0.5 mL) SUBCUT QAM 90 09/27/21 10/06/22 10/06/22 Rx mL) subcutaneous pen (Lantus days #45 mL Solostar U-100 Insulin) potassium chloride 20 mEq 20 meq PO DAILY #90 tabs 09/27/21 10/06/22 10/06/22 Rx tablet,extended release blood sugar diagnostic (Blood #100 ea 10/14/21 09/17/22 Unknown Rx Glucose Test strips) blood-glucose meter (Blood Glucose #1 ea 10/14/21 09/17/22 Unknown Rx Monitoring kit) lancets 33 gauge (TRUEplus Lancets) #300 ea 04/29/22 09/17/22 Unknown Rx alendronate 70 mg tablet 70 mg PO Q7D 10/06/22 10/06/22 Unknown History amlodipine 10 mg tablet 10 mg PO DAILY 10/06/22 10/06/22 10/06/22 History atenolol 100 mg tablet 100 mg PO DAILY 10/06/22 10/06/22 10/06/22 07:00 History clonidine HCl 0.2 mg tablet 0.2 mg PO BID 10/06/22 10/06/22 10/06/22 History clopidogrel 75 mg tablet 75 mg PO DAILY 10/06/22 10/06/22 10/06/22 History fluoxetine 40 mg capsule 40 mg PO DAILY 10/06/22 10/06/22 Unknown History furosemide 20 mg tablet 20 mg PO DAILY 10/06/22 10/06/22 10/06/22 History lovastatin 40 mg tablet 40 mg PO DAILY 10/06/22 10/06/22 10/06/22 History omeprazole 20 mg capsule,delayed 20 mg PO BID 10/06/22 10/06/22 10/06/22 History release trazodone 50 mg tablet 50 mg PO QPM 10/06/22 10/06/22 10/05/22 History Allergies Allergy/AdvReac Type Severity Reaction Status Date / Time No Known Allergies Allergy Verified 09/17/22 14:00 Current Medications Generic Name Dose Route Start Last Admin Trade Name Freq PRN Reason Stop Dose Admin Sodium Chloride 1,000 mls @ 30 mls/hr 10/06/22 12:15 10/06/22 12:44 Sodium Chloride 0.9% IV 10/07/22 12:14 30 mls/hr .Q24H BRIGHT Administration PFSH Anesthesia Medical History Acute lacunar stroke Diabetes Dyslipidemia History of CVA (cerebrovascular accident) Hypertension Painful orthopaedic hardware TIA (transient ischemic attack) Wound, open, elbow Social History Smoking and tobacco status: former smoker Second hand smoke exposure: No Alcohol intake: never Lives independently: No Household members: friend(s) Marital status: Single service: No Current occupational status: disabled Current gender identity: Female Special brian needs: No Agree to transfusion: Yes Financial difficulty paying for basics: Hard Data Anesthesia Cardiac Studies: Echocardiogram 09/03/21
[2022-10-06 14:06] LABS: Glucose Point of Care 85 mg/dL (70-110)
--- NOTE | 2022-10-06 14:15 | W.PM.OPSUD ---
Surgery/Procedure H&P Update DATE OF PROCEDURE: October 06, 2022 DATE H&P PERFORMED: 09/17/22 H&P UPDATE INFORMATION: I have reviewed H&P completed within last 30 days PREOP DIAGNOSIS: Painful hardware right elbow PLANNED PROCEDURE: Operation Date: 10/06/22 14:40 Proposed Procedures p hardware removal right elbow/ T84.84XA(Right) - Moo Looney MD
[2022-10-06] MEDS: ceFAZolin 2,000 MG in sodium chloride 0.9% (plus) 50 ML 100 MG IV (14:28)
[2022-10-06 15:17] LABS: Glucose Point of Care 69 mg/dL (70-110)
--- NOTE | 2022-10-06 15:47 | PM.OP ---
Operative Report Date of procedure: October 06, 2022 Pre-op diagnosis: Preop Diagnosis infected hardware right elbow Post-op diagnosis: same Procedure done: Removal deep hardware Pathology: other Pathology: Routine and anaerobic cultures area about elbow plate Anesthesia: General Estimated blood loss (mL): 10 Tourniquet time (min): 36 Findings: That dorsal sinus over the olecranon was seen to clearly extended down to the plate. No necrotic bone or purulence was noted. Electron appeared to be united. Condition: stable Brief History: Cynthia underwent open reduction internal fixation of a right elbow over a year ago with persistent drainage and a suspected deep infection about her hardware. Radiographs revealed a healing of the fracture she was taken to the operating room for removal of the infected hardware Procedure: yCnthia was taken to the operating room and given a general anesthesia. Tourniquet was applied across the left humerus she is prepped and draped with the left arm over her body. She was given 2 g of Ancef. Timeout was performed. The tourniquet was inflated 250 mmHg. Dorsal incision was made with a scalpel blade down to her dorsal hardware. The sinus over the tip olecranon was seen to clearly communicate down to the plate. Utilizing our universal extraction sent all screws were removed and the plate removed from the arm without difficulty. Deep cultures of the area around the sinus and plate were obtained and sent for routine and anaerobic culture. The wound was irrigated with saline. It was deflated the skin was closed with interrupted 2-0 Prolene suture. Xeroflo gauze, 4 x 4's, compressive cast padding and Javy wrap were applied. The patient was placed in a sling and taken recovery room in stable condition.
[2022-10-06 16:03] LABS: Glucose Point of Care 79 mg/dL (70-110)
--- NOTE | 2022-10-06 16:08 | SUR.PHASEI ---
1548 PT TO PACU 5 PT AWAKE ALERT KNOWS NAME PLACE AND YEAR, IV TO LT HAND PATENT 1000ML NS AT KVO RATE PER GRAVITY, MONITOR SR WITH NO ECTOPY NOTED, SOFT DRESSING D/I WITH OUMAR WRAP, SLING TO RT ARM, PT DISTAL HAND COOL WITH CAP REFILL LESS THAN 3 SECONDS PT STATES NORMAL SENSATION TO RT HAND, VSS.
--- NOTE | 2022-10-06 16:18 | SUR.PHASEI ---
PT VERY AWAKE ALERT, DRANK OJ WITH 3 SUGARS WITHOUT DIFFICULTY, WILL RECHECK BLOOD GLUCOSE BEFORE DISCHARGE.
--- NOTE | 2022-10-06 16:32 | SUR.PHASEI ---
PT TO OPS ROOM 2 HANDOFF AT BEDSIDE, PT VERY ALERT TALKATIVE WITH FAMILY AND STAFF, PT REQUESTS PUDDING TO EAT, NO DISTRESS NOTED PT GLUCOSE LEVELS REVIEWED WITH OPS NURSE, AND FAMILY UPDATED THAT PT NEEDS TO EAT WHEN SHE GETS HOME .
[2022-10-06] MEDS: HYDROcodone-acetaminophen 5-325 mg Tablet 1 TAB PO (16:48)
--- NOTE | 2022-10-06 18:00 | ANE.PACU2 ---
Inpatient post-anesthesia follow up: Airway intact: Yes Vital signs: Temperature 97.4 F Pulse Rate 78 Respiratory Rate 18 Blood Pressure 171/95 Pulse Oximetry 96 Oxygen Delivery Me thod Room Air Oxygen Flow Rate 8 Fraction of Inspir ed Oxygen Hydration adequate: Yes Nausea and vomiting: No Pain level: 1 Mental status: Baseline
== END 2022-10-06 17:00 | disposition home or self-care (01) ==
PROVIDERS: PCP Nurse Practitioner Family; Visit Provider Orthopaedic Surgery
PROC: (CPT 20680; principal; 2022-10-06 14:30)
DX: T84.84XA Pain due to internal orthopedic prosthetic devices, implants and grafts, initial encounter (principal); I10 Essential (primary) hypertension; K21.9 Gastro-esophageal reflux disease without esophagitis; E11.9 Type 2 diabetes mellitus without complications; E78.5 Hyperlipidemia, unspecified; Z86.73 Personal history of transient ischemic attack (TIA), and cerebral infarction without residual deficits; Z79.82 Long term (current) use of aspirin; Z87.891 Personal history of nicotine dependence
CPT/HCPCS: 20680; 36416; 82962; 87070; 87075; 87077; 87186; 87205; J0690; J1580; J2704; J3010; J3490; J7030

== ENCOUNTER → 2022-10-28 09:41 | Outpatient (BNVA) | payer MEDICARE, SELFPAY | PROVIDERS: PCP Nurse Practitioner Family; Visit Provider Nurse Practitioner Family | DX: T84.84XA Pain due to internal orthopedic prosthetic devices, implants and grafts, initial encounter (principal); Y79.2 Prosthetic and other implants, materials and accessory orthopedic devices associated with adverse incidents | CPT/HCPCS: 99024; 99213 ==

== ENCOUNTER → 2022-12-05 15:24 | Outpatient (BNVA) | payer MEDICARE, SELFPAY | PROVIDERS: PCP Nurse Practitioner Family; Visit Provider Nurse Practitioner Family | DX: M25.551 Pain in right hip (principal) | CPT/HCPCS: 73502 ==

== ENCOUNTER 2023-03-16 09:41 | Outpatient (CLI) | payer MEDICARE, SELFPAY ==
--- NOTE | 2023-03-16 09:47 | USCV_ITS ---
Cynthia Taveras Age: 82 Gender: F : 1940 Exam Date: 03/16/2023 09:55 Ordering Phys: Betty Sanchez MEDICAL [employer] DOSIMETRIST Technologist: ADDIS Exam Location: [facility] [place] Indication: DIZZINESS Risk Factors: Previous Vascular Surgery: Right Brachial BP: / Left Brachial BP: / Right Left Velocity (cm/s) Spectral Plaque Velocity (cm/s) Spectral Plaque Syst/Diast Broadening Syst/Diast Broadening 39.70/ 6.20 Prox CCA 73.00 / 17.90 39.40/ 13.10 Mid CCA 61.40 / 14.00 60.50/ 15.10 Distal CCA 52.80 / 10.10 70.10/ 17.90 Prox ICA 54.00 / 14.50 126.20/25.00 Mid ICA 81.00 / 21.20 61.80/ 22.30 Distal ICA 68.40 / 14.50 199.00 ECA 197.90 2.09 ICA/CCA 1.11 Antegrade Vertebral Antegrade 55.90/ 13.20 cm/s 36.70/ 14.50 cm/s Tri Subclavian Tri 108.1 115.9 0 0 CONCLUSIONS Right ICA stenosis <50%. Left ICA stenosis <50%. Mild atheromatous plaque right CCA carotid bulb/ICA. Mild atheromatous plaque left CCA carotid bulb/ICA. Normal antegrade Doppler flow noted in the right vertebral artery. Normal antegrade Doppler flow noted in the left vertebral artery. Gerson Win MD (Electronically Signed) Final Date: 16 Mar 2023 12:43 S
== END 2023-03-16 09:42 | disposition home or self-care (01) ==
LOC: RAD 09:43
PROVIDERS: PCP Nurse Practitioner Family; Visit Provider Nurse Practitioner Family
DX: R42 Dizziness and giddiness (principal); I65.23 Occlusion and stenosis of bilateral carotid arteries
CPT/HCPCS: 93880

== ENCOUNTER 2023-06-09 13:33 | Outpatient (CLI) | payer MEDICARE, SELFPAY ==
--- NOTE | 2023-06-09 13:45 | XRR_ITS ---
PROCEDURE INFORMATION: Exam: XR Right Ribs Exam date and time: 06/09/2023 1:52 PM Age: 82 years old Clinical indication: Injury or trauma; Fall; Rib area; Blunt trauma (contusions or hematomas); Injury date: Couple of weeks ago; Additional info: R sided rib pain/fall/musculoskeletal pain TECHNIQUE: Imaging protocol: Radiologic exam of the right ribs. Views: 2 views. COMPARISON: CR XR chest 2V* [id number] 02/18/2022 10:55 AM FINDINGS: Bones/joints: Normal. Soft tissues: Normal. XR/XR ribs RT 2V* [id number] IMPRESSION: No acute findings.
== END 2023-06-09 13:34 | disposition home or self-care (01) ==
PROVIDERS: PCP Nurse Practitioner Family; Visit Provider Nurse Practitioner Family
DX: R07.81 Pleurodynia (principal); M79.18 Myalgia, other site; W19.XXXA Unspecified fall, initial encounter
CPT/HCPCS: 71100

== ENCOUNTER 2023-07-31 13:12 | Emergency (ER) | payer MEDICARE, SELFPAY ==
[2023-07-31 13:16] VITALS: BP 222/109; PULSE 74; RESP 16; TEMP 36.7; O2SAT 95; BMI 31.1
[2023-07-31 13:26] VITALS: BP 244/104; PULSE 63; RESP 20; O2SAT 91
[2023-07-31 13:56] VITALS: TEMP 36.6
--- NOTE | 2023-07-31 14:27 | PC.PHAR ---
pt states she has not been taking on a regular basis as she should be. She has been too busy to fill her pill reminder. 07/31/23
--- NOTE | 2023-07-31 14:41 | ED_ITS ---
HPI - Back Pain/Injury General: Chief Complaint: Back Pain/Injury Stated Complaint: vomiting/fall/back pain Time Seen by Provider: 07/31/23 14:04 Source: patient Mode of arrival: ambulatory Limitations: no limitations History of Present Illness: This 82-year-old female presents to the ER for evaluation following a fall. She was getting ready to go to the [facility] when she slipped on her floor and fell. She landed straight on her bottom. She denies hitting her head or losing consciousness. She denies injury to any other part of her body. She has pain in her buttocks especially when she tries to walk. Otherwise, patient is clinically stable. Associated symptoms: Deny chills or dysuria Review of Systems Const: Denies: chills, body aches or change in appetite Eyes: Denies: change in vision or eye discharge ENMT: Denies: throat pain, dental pain or nasal discharge Card: Denies: chest pain or lightheadedness : Denies: dysuria Musc: Reports: other (pain in the buttock); Denies: neck pain or back pain Neuro: Denies: headache(s) or weakness in extremities Psych: Denies: depression Jett/Lymph: Denies: easy bruising All/Imm: Denies: urticaria, tongue swelling or facial swelling PFSH ED PFSH: Medical History Acute lacunar stroke Diabetes Dyslipidemia History of CVA (cerebrovascular accident) Hypertension Painful orthopaedic hardware TIA (transient ischemic attack) Wound, open, elbow Social History Smoking and tobacco status: former smoker Second hand smoke exposure: No Alcohol intake: never Substance/Drug Use: never Lives independently: No Household members: friend(s) Marital status: Single service: No Current occupational status: disabled Current gender identity: Female Special brian needs: No Agree to transfusion: Yes Financial difficulty paying for basics: Hard Physical Exam Const: COMMON NORMALS: no acute distress, patient oriented x3, no limitations and alert HENMT: COMMON NORMALS: normocephalic HEAD & SCALP: normocephalic Eye: COMMON NORMALS: EOMs intact bilaterally Neck/C-Spine: COMMON NORMALS: full ROM and supple Chest: COMMONS NORMALS: normal inspection of the chest Resp: COMMON NORMALS: normal respiratory effort, No retractions, No use of accessory muscles and clear to auscultation bilaterally AUSCULTATION: clear to auscultation bilaterally Cardio: COMMON NORMALS: regular rate, regular rhythm and No murmurs present (Cardio) RATE: regular rate RHYTHM: regular rhythm GI: COMMON NORMALS: Normal to inspection, nondistended, normoactive bowel sounds present and non-tender : COMMON NORMALS: Yes no CVA tenderness BLADDER/KIDNEY EXAM: Yes no CVA tenderness Back/Pelvis: COMMON NORMALS: no CVA tenderness and no thoracic nor lumbar tenderness SACRUM: tenderness COCCYX: Coccyx tenderness present OTHER: Good range of movement in both lower extremities though with pain in the sacral area. No distal neurovascular deficit. Extremity: GENERAL: Yes normal exam except as noted Neuro: COMMON NORMALS: patient oriented x3 and no focal motor deficits SENSORIUM/ORIENTATION: Yes alert Psych: COMMON NORMALS: mental status grossly normal and cooperative Course Vital Signs: Vital signs: Vital Signs Temperature 98.3 F 07/31/23 16:18 Pulse Rate 71 07/31/23 16:18 Respiratory Rate 20 H 07/31/23 16:18 Blood Pressure 242/117 07/31/23 16:18 Pulse Oximetry 89 L 07/31/23 16:18 Oxygen Delivery Me thod Room Air 07/31/23 15:30 MDM - Back Pain/Injury Medical Decision Making Medical decision making: Patient presents to the ER for evaluation following a fall. X-rays are negative for fracture/dislocation. She will be treated symptomatically. Reasons to return were discussed. All radiology interpretation(s) finalized by discharge Discharge Plan Discharge Patient Disposition: Home Clinical Impression: Sprain of pelvis, Fall Condition: Stable Prescriptions: New tramadol 50 mg tablet 50 mg PO TID PRN (Reason: pain) Qty: 20 0RF No Action Lantus Solostar U-100 Insulin 100 unit/mL (3 mL) insulin pen 50 unit SUBCUT QAM 90 Days Qty: 45 0RF (DME) blood-glucose meter [Blood Glucose Monitoring] Kit See Rx Instructions .ROUTE .MEDSUPPLY Qty: 1 0RF Rx Instructions: As directed; pt to test 1 x day (DME) Blood Glucose Test Strip See Rx Instructions .ROUTE .MEDSUPPLY Qty: 100 4RF Rx Instructions: As directed (DME) lancets [TRUEplus Lancets] 33 gauge misc See Rx Instructions .ROUTE .COMPLEX Qty: 300 0RF Dose Instruction: TEST BLOOD SUGAR THREE TIMES DAILY DIRECTED AND NEEDED FOR HYPOGLYCEMIA Rx Instructions: TEST BLOOD SUGAR THREE TIMES DAILY DIRECTED AND NEEDED FOR HYPOGLYCEMIA aspirin 325 mg Tablet 325 mg PO DAILY multivitamin Tablet 1 tab PO QAM fluoxetine 40 mg capsule 40 mg PO QAM trazodone 50 mg tablet 50 mg PO QPM atenolol 100 mg tablet 100 mg PO QAM alendronate 70 mg tablet 70 mg PO Q7D Rx Instructions: ON WEDNESDAYS lovastatin 40 mg tablet 40 mg PO QAM clopidogrel 75 mg tablet 75 mg PO QAM clonidine HCl 0.2 mg tablet 0.2 mg PO BID amlodipine 10 mg tablet 10 mg PO QAM omeprazole 20 mg capsule,delayed release(DR/EC) 20 mg PO BID furosemide 20 mg tablet 20 mg PO QAM benazepril 20 mg tablet 20 mg PO QAM potassium chloride 20 mEq tablet extended release 20 meq PO QAM Discharge Orders: Discharge ED (Routine); Ordered 07/31/23 Ordered By: Naomi Chappell Referrals: Betty Sanchez FNP [Primary Care Provider] - Discharge Diet: Usual diet Discharge Activity: Increase activity as tolerated Patient Instructions: Opioid Safety, Pain Management Activity Restrictions/Additional Instructions: Take tramadol as needed for pain. Follow-up with your primary care physician in a week for reevaluation. Return to the ER with new or worsening symptoms. Coding Level of Care Code ED Supervisor [employer] for Dania Romo
--- NOTE | 2023-07-31 14:46 | XR_ITS ---
WS: [id number] EXAMINATION: XR pelvis 1-2V* [id number] REASON FOR EXAM: fall COMPARISON: None available. ORDER DATE: 07/31/2023 2:46 PM FINDINGS: There is no sign of any acute osseous or articular abnormality. There are no specific soft tissue abn ormalities. Mild osteoarthritic changes in the hip joints and in each greater trochanteric region antony ecially on the right. IMPRESSION: No acute osseous change.
--- NOTE | 2023-07-31 14:46 | XR_ITS ---
WS: [id number] EXAMINATION: XR coccyx 2V [id number] REASON FOR EXAM: fall COMPARISON: None available. ORDER DATE: 07/31/2023 2:46 PM FINDINGS: There is a very accentuated lumbar lordosis. There is anterolisthesis of at least 5 mm of L4 compared with L5. Intervertebral disc degeneration and vacuum change noted from L3-S1. Marked atherosclerotic aortoiliac calcified plaque noted. No evidence of acute fracture. SI joints unremarkable. IMPRESSION: No acute fracture change.
--- NOTE | 2023-07-31 14:51 | XR_ITS ---
WS: [id number] EXAMINATION: XR sacrum coccyx min 2V [id number] REASON FOR EXAM: fall COMPARISON: None available. ORDER DATE: 07/31/2023 2:51 PM FINDINGS: There is no acute osseous abnormality. There is increased lumbar lordosis. 5 mm anterolisthesis of L4 compared with L5 is demonstrated. There is vacuum disc degenerative change and narrowing at L4-5 and L5-S1. Marked atherosclerotic aortoiliac calcified plaque is noted. IMPRESSION: No acute abnormalities with prominent chronic degenerative changes in the lower lumbar spine
[2023-07-31 15:17] VITALS: BP 202/106; PULSE 66; RESP 20; O2SAT 90
[2023-07-31 15:30] VITALS: BP 247/106; PULSE 69; RESP 20; O2SAT 88
[2023-07-31] MEDS: ondansetron 2 mg/ML SDV 2 mL 4 MG IVP (15:31)
[2023-07-31 16:18] VITALS: BP 242/117; PULSE 71; RESP 20; TEMP 36.8; O2SAT 89
--- NOTE | 2023-07-31 16:26 | PC.NURSE ---
Patient received DC orders. All IV's removed, prescriptions given to patient, patient verbalized understanding. Patient left via w/c to main exit at 1627 with staff.
== END 2023-07-31 16:27 | disposition home or self-care (01) ==
PROVIDERS: Emergency Provider Family Medicine; PCP Nurse Practitioner Family
DX: S33.9XXA Sprain of unspecified parts of lumbar spine and pelvis, initial encounter (principal); Z79.82 Long term (current) use of aspirin; Z79.02 Long term (current) use of antithrombotics/antiplatelets; Z79.4 Long term (current) use of insulin; E11.9 Type 2 diabetes mellitus without complications; E78.5 Hyperlipidemia, unspecified; Z86.73 Personal history of transient ischemic attack (TIA), and cerebral infarction without residual deficits; I10 Essential (primary) hypertension; Z87.891 Personal history of nicotine dependence; W01.0XXA Fall on same level from slipping, tripping and stumbling without subsequent striking against object, initial encounter
CPT/HCPCS: 72170; 72220; 96374; 99284; J2405

== ENCOUNTER 2023-08-17 11:59 | Emergency (ER) | payer MEDICARE, SELFPAY ==
[2023-08-17 12:15] VITALS: BMI 30.9
[2023-08-17 12:17] VITALS: BP 221/92; PULSE 64; RESP 16; TEMP 36.8; O2SAT 94
[2023-08-17 12:37] LABS: Basophils # 0.1 10^3/uL (0.0-0.1); Basophils % 0.7 %; Eosinophils # 0.2 10^3/uL (0.0-0.8); Eosinophils % 2.2 %; Lymphocytes # 1.6 10^3/uL (0.8-4.8); Lymphocytes % 16.3 %; Mean Corpuscular HGB Conc 30.5 g/dL (30-55); Mean Corpuscular Hemoglobin 27.1 pg (27-33); Mean Corpuscular Volume 89.1 fl (85-98); Mean Platelet Volume 11.6 fL (7.4-10.4); Monocytes # 1.2 10^3/uL (0.2-0.9); Monocytes % 11.5 %; Neutrophils # 6.91 10^3/uL (1.8-7.7); Neutrophils % 68.8 %; Nucleated Red Blood Cells % 0 %; Platelet Count 330 10^3/cmm (157-399); Red Blood Count 4.94 10^6/uL (3.85-5.65); Red Cell Distribution Width 13.9 % (12.1-15.1); White Blood Count 10.05 10^3/uL (3.29-11.43)
[2023-08-17 13:00] LABS: Alanine Aminotransferase 8 U/L (0-33); Albumin Level 3.5 g/dL (3.5-5.2); Alkaline Phosphatase 141 U/L (35-105); Anion Gap 12.5 (5-19); Aspartate Amino Transferase 16 U/L (0-32); Blood Urea Nitrogen 15 mg/dL (8-23); Calcium 9.1 mg/dL (8.5-10.5); Carbon Dioxide 28 mmol/L (22-29); Chloride 106 mmol/L (98-107); Globulin 2.5 g/dL (1.3-4.6); Glucose 235 mg/dL (65-115); Lipase 28 U/L (13-60); Osmolality Calculated 304 mOsm/kg (285-295); Potassium 3.5 mmol/L (3.5-5.1); Sodium 143 mmol/L (136-145); Total Bilirubin 0.3 mg/dL (0.15-1.2)
== END 2023-08-17 14:47 | disposition left against medical advice (07) ==
PROVIDERS: Emergency Medicine; Emergency Provider Family Medicine; PCP Nurse Practitioner Family
DX: Z53.21 Procedure and treatment not carried out due to patient leaving prior to being seen by health care provider (principal)
CPT/HCPCS: 36415; 80053; 83690; 85025; 99283

== ENCOUNTER 2023-08-21 11:31 | Emergency (ER) | payer MEDICARE, SELFPAY ==
[2023-08-21 11:41] VITALS: BP 213/83; PULSE 62; RESP 18; TEMP 36.3; O2SAT 94; BMI 29.2
--- NOTE | 2023-08-21 11:50 | XR_ITS ---
WS: [id number] Exam: XR lumbar spine 2-3V* [id number] Date/Time of Exam: 08/21/2023 11:52 AM Reason For Exam: low back pain after fall Comparison 03/20/2022. There appear to be low-grade compression fractures of L1 and L2 with cortical buckling along the ante rior margin of both vertebra. No posterior displacement noted. Very minimal loss of vertebral height. No other sign of fracture. Degenerative vacuum discs at L4-5 and L5-S1. Severe disc degeneration see n in the lower thoracic levels as well as the T12-L1 level. Mild degenerative anterolisthesis of L4 o n L5 and L5 on S1 due to facet arthropathy at these levels. Exaggerated lumbar lordosis. Moderate dex troscoliosis. DJD of the bilateral SI joints. Extensive aortoiliac atherosclerosis. IMPRESSION: 1. Findings are suspicious for low-grade compression fractures of L1 and L2 with no posterior displac ement and very minimal loss of vertebral height at both levels. 2. Moderately advanced degenerative changes as detailed above. 3. Moderate dextroscoliosis. Recommendations: Further work-up with lumbar CT scan might be considered for more detailed evaluation .
--- NOTE | 2023-08-21 12:50 | W.ED.BACK ---
Documented by User: Alexandria Waldron PA-C 08/21/23 13:02 HPI - Back Pain/Injury General: Chief Complaint: Back Pain/Injury Stated Complaint: lower back pain Time Seen by Provider: 08/21/23 11:50 Source: patient Mode of arrival: wheelchair Limitations: no limitations History of Present Illness: 83-year-old female presents to the ER today for continued back pain x1 month. 1 month ago patient was outside and slipped on some wet ground and landed on her bottom. She was seen in the ER at that time but no imaging was done. Patient denies any neurological deficits. Denies any numbness or tingling. Patient reports continued pain all the time in her mid low back. Patient has tried topical muscle rubs and [id number] medications for pain with no improvement. She has an appointment with her PCP on Thursday to discuss this however the pain is severe at this time. Review of Systems General: Reports: 10 or more systems reviewed and unremarkable except in HPI and below PFSH ED PFSH: Medical History Acute lacunar stroke Diabetes Dyslipidemia History of CVA (cerebrovascular accident) Hypertension Painful orthopaedic hardware TIA (transient ischemic attack) Wound, open, elbow Social History Smoking and tobacco/nicotine status: former use of tobacco/nicotine Second hand smoke exposure: No Alcohol intake: never Substance/Drug Use: never Lives independently: No Household members: friend(s) Marital status: Single service: No Current occupational status: disabled Current gender identity: Female Special brian needs: No Agree to transfusion: Yes Physical Exam Const: COMMON NORMALS: no acute distress, average body habitus, patient oriented x3, healthy appearing and well nourished Resp: COMMON NORMALS: normal respiratory effort, No retractions and clear to auscultation bilaterally AUSCULTATION: clear to auscultation bilaterally Cardio: COMMON NORMALS: regular rate, regular rhythm and No murmurs present (Cardio) RATE: regular rate RHYTHM: regular rhythm GI: COMMON NORMALS: Normal to inspection, nondistended, normoactive bowel sounds present, Soft to palpation and non-tender PALPATION: Yes Soft to palpation Back/Pelvis: LUMBAR SPINE/LOWER BACK: Yes ROM limited, Yes pain with ROM, Yes lumbar spinal tenderness and Yes paraspinal muscle spasm Extremity: COMMON NORMALS: normal to inspection, full ROM and no pedal edema Neuro: COMMON NORMALS: patient oriented x3 Psych: COMMON NORMALS: mental status grossly normal, Normal thought process present and cooperative THOUGHT PROCESS: Normal thought process present Skin: COMMON NORMALS: no rashes or lesions noted and no wounds GENERAL SKIN EXAM: no rashes or lesions noted Course ED course: Patient presents for mid low back pain after fall 1 month ago. No imaging has been done at this time so we will start with an L-spine x-ray. No focal deficits or neurological deficits are noted. Vital Signs: Vital signs: Vital Signs Temperature 97.4 F L 08/21/23 11:41 Pulse Rate 62 08/21/23 11:41 Respiratory Rate 18 08/21/23 11:41 Blood Pressure 213/83 08/21/23 11:41 Pulse Oximetry 94 08/21/23 11:41 Oxygen Delivery Me thod Room Air 08/21/23 11:41 MDM - Back Pain/Injury Medical Decision Making X-rays of the L-spine indicate minor compression fractures at L1-L2. This is consistent with the recent fall patient had and the pain she is describing. I discussed findings with patient. She has no neurological deficits and no signs of nerve involvement at this time. We will do tramadol for pain. Patient does have an appointment with her PCP on Thursday and I would recommend she discuss with them longer-term pain control and may be physical therapy. We discussed warning signs and when to return to the ER. Patient verbalized understanding and was in agreement with the treatment plan. All radiology interpretation(s) finalized by discharge Discharge Plan Discharge Patient Disposition: Home Clinical Impression: Compression fracture of L1 lumbar vertebra Qualifiers: Encounter type: initial encounter Qualified Code(s): S32.010A - Wedge compression fracture of first lumbar vertebra, initial encounter for closed fracture Compression fracture of L2 vertebra Qualifiers: Encounter type: initial encounter Qualified Code(s): S32.020A - Wedge compression fracture of second lumbar vertebra, initial encounter for closed fracture Condition: Stable Prescriptions: New tramadol 50 mg tablet 50 mg PO Q8H PRN (Reason: pain) Qty: 14 0RF No Action Lantus Solostar U-100 Insulin 100 unit/mL (3 mL) insulin pen 50 unit SUBCUT QAM 90 Days Qty: 45 0RF (DME) blood-glucose meter [Blood Glucose Monitoring] Kit See Rx Instructions .ROUTE .MEDSUPPLY Qty: 1 0RF Rx Instructions: As directed; pt to test 1 x day (DME) Blood Glucose Test Strip See Rx Instructions .ROUTE .MEDSUPPLY Qty: 100 4RF Rx Instructions: As directed (DME) lancets [TRUEplus Lancets] 33 gauge misc See Rx Instructions .ROUTE .COMPLEX Qty: 300 0RF Dose Instruction: TEST BLOOD SUGAR THREE TIMES DAILY DIRECTED AND NEEDED FOR HYPOGLYCEMIA Rx Instructions: TEST BLOOD SUGAR THREE TIMES DAILY DIRECTED AND NEEDED FOR HYPOGLYCEMIA aspirin 325 mg Tablet 325 mg PO DAILY multivitamin Tablet 1 tab PO QAM fluoxetine 40 mg capsule 40 mg PO QAM trazodone 50 mg tablet 50 mg PO QPM atenolol 100 mg tablet 100 mg PO QAM alendronate 70 mg tablet 70 mg PO Q7D Rx Instructions: ON WEDNESDAYS lovastatin 40 mg tablet 40 mg PO QAM clopidogrel 75 mg tablet 75 mg PO QAM clonidine HCl 0.2 mg tablet 0.2 mg PO BID amlodipine 10 mg tablet 10 mg PO QAM omeprazole 20 mg capsule,delayed release(DR/EC) 20 mg PO BID furosemide 20 mg tablet 20 mg PO QAM benazepril 20 mg tablet 20 mg PO QAM potassium chloride 20 mEq tablet extended release 20 meq PO QAM tramadol 50 mg tablet 50 mg PO TID PRN (Reason: pain) Qty: 20 0RF Discharge Orders: Discharge ED (Routine); Ordered 08/21/23 Ordered By: Alexandria Waldron Referrals: Betty Sanchez FNP [Primary Care Provider] - Discharge Diet: Usual diet Discharge Activity: Increase activity as tolerated Patient Instructions: Opioid Safety, Pain Management Activity Restrictions/Additional Instructions: Take tramadol as needed for pain. Follow-up with primary care doctor on Thursday at already scheduled appointment to discuss possible physical therapy versus pain management while fracture is healed. Return to the ER with new or worsening symptoms as discussed including any neurological changes. Coding Level of Care Code ED Customer Advisor for [facility] Documented by User: Clifford Vargas DO 08/21/23 17:53 HPI - Back Pain/Injury General: Chief Complaint: Back Pain/Injury Stated Complaint: lower back pain Time Seen by Provider: 08/21/23 11:50 PFSH ED PFSH: Medical History Acute lacunar stroke Diabetes Dyslipidemia History of CVA (cerebrovascular accident) Hypertension Painful orthopaedic hardware TIA (transient ischemic attack) Wound, open, elbow Social History Smoking and tobacco/nicotine status: former use of tobacco/nicotine Second hand smoke exposure: No Alcohol intake: never Substance/Drug Use: never Lives independently: No Household members: friend(s) Marital status: Single service: No Current occupational status: disabled Current gender identity: Female Special brian needs: No Agree to transfusion: Yes Course Vital Signs: Vital signs: Vital Signs Temperature 97.4 F L 08/21/23 11:41 Pulse Rate 62 08/21/23 11:41 Respiratory Rate 18 08/21/23 11:41 Blood Pressure 213/83 08/21/23 11:41 Pulse Oximetry 94 08/21/23 11:41 Oxygen Delivery Me thod Room Air 08/21/23 11:41 MDM - Back Pain/Injury Medical Decision Making X-rays of the L-spine indicate minor compression fractures at L1-L2. This is consistent with the recent fall patient had and the pain she is describing. I discussed findings with patient. She has no neurological deficits and no signs of nerve involvement at this time. We will do tramadol for pain. Patient does have an appointment with her PCP on Thursday and I would recommend she discuss with them longer-term pain control and may be physical therapy. We discussed warning signs and when to return to the ER. Patient verbalized understanding and was in agreement with the treatment plan. Chart reviewed and patient discussed with midlevel. Agree with assessment and plan. Discharge Plan Discharge Patient Disposition: Home Clinical Impression: Compression fracture of L1 lumbar vertebra Qualifiers: Encounter type: initial encounter Qualified Code(s): S32.010A - Wedge compression fracture of first lumbar vertebra, initial encounter for closed fracture Compression fracture of L2 vertebra Qualifiers: Encounter type: initial encounter Qualified Code(s): S32.020A - Wedge compression fracture of second lumbar vertebra, initial encounter for closed fracture Condition: Stable Prescriptions: New tramadol 50 mg tablet 50 mg PO Q8H PRN (Reason: pain) Qty: 14 0RF No Action Lantus Solostar U-100 Insulin 100 unit/mL (3 mL) insulin pen 50 unit SUBCUT QAM 90 Days Qty: 45 0RF (DME) blood-glucose meter [Blood Glucose Monitoring] Kit See Rx Instructions .ROUTE .MEDSUPPLY Qty: 1 0RF Rx Instructions: As directed; pt to test 1 x day (DME) Blood Glucose Test Strip See Rx Instructions .ROUTE .MEDSUPPLY Qty: 100 4RF Rx Instructions: As directed (DME) lancets [TRUEplus Lancets] 33 gauge misc See Rx Instructions .ROUTE .COMPLEX Qty: 300 0RF Dose Instruction: TEST BLOOD SUGAR THREE TIMES DAILY DIRECTED AND NEEDED FOR HYPOGLYCEMIA Rx Instructions: TEST BLOOD SUGAR THREE TIMES DAILY DIRECTED AND NEEDED FOR HYPOGLYCEMIA aspirin 325 mg Tablet 325 mg PO DAILY multivitamin Tablet 1 tab PO QAM fluoxetine 40 mg capsule 40 mg PO QAM trazodone 50 mg tablet 50 mg PO QPM atenolol 100 mg tablet 100 mg PO QAM alendronate 70 mg tablet 70 mg PO Q7D Rx Instructions: ON WEDNESDAYS lovastatin 40 mg tablet 40 mg PO QAM clopidogrel 75 mg tablet 75 mg PO QAM clonidine HCl 0.2 mg tablet 0.2 mg PO BID amlodipine 10 mg tablet 10 mg PO QAM omeprazole 20 mg capsule,delayed release(DR/EC) 20 mg PO BID furosemide 20 mg tablet 20 mg PO QAM benazepril 20 mg tablet 20 mg PO QAM potassium chloride 20 mEq tablet extended release 20 meq PO QAM tramadol 50 mg tablet 50 mg PO TID PRN (Reason: pain) Qty: 20 0RF Discharge Orders: Discharge ED (Routine); Ordered 08/21/23 Ordered By: Alexandria Waldron Referrals: Betty Sanchez FNP [Primary Care Provider] - Discharge Diet: Usual diet Discharge Activity: Increase activity as tolerated Patient Instructions: Opioid Safety, Pain Management Activity Restrictions/Additional Instructions: Take tramadol as needed for pain. Follow-up with primary care doctor on Thursday at already scheduled appointment to discuss possible physical therapy versus pain management while fracture is healed. Return to the ER with new or worsening symptoms as discussed including any neurological changes. Coding Level of Care Code ED Customer Advisor for Dania Romo
== END 2023-08-21 12:44 | disposition home or self-care (01) ==
PROVIDERS: Emergency Provider Physician Assistant; PCP Nurse Practitioner Family
DX: S32.010A Wedge compression fracture of first lumbar vertebra, initial encounter for closed fracture (principal); S32.020A Wedge compression fracture of second lumbar vertebra, initial encounter for closed fracture; Z79.82 Long term (current) use of aspirin; Z79.02 Long term (current) use of antithrombotics/antiplatelets; Z79.4 Long term (current) use of insulin; E11.9 Type 2 diabetes mellitus without complications; E78.5 Hyperlipidemia, unspecified; Z86.73 Personal history of transient ischemic attack (TIA), and cerebral infarction without residual deficits; I10 Essential (primary) hypertension; Z87.891 Personal history of nicotine dependence; W01.0XXA Fall on same level from slipping, tripping and stumbling without subsequent striking against object, initial encounter
CPT/HCPCS: 72100; 99283

== ENCOUNTER 2023-09-22 10:07 | Emergency (ER) | payer MEDICARE, SELFPAY ==
[2023-09-22 10:09] VITALS: BP 217/118; PULSE 119; RESP 18; TEMP 36.9; O2SAT 95; BMI 29.0
--- NOTE | 2023-09-22 10:21 | ED_ITS ---
HPI - Fall 2 General: Chief Complaint: Fall Stated Complaint: Fall Time Seen by Provider: 09/22/23 10:11 Source: patient Mode of arrival: EMS Limitations: no limitations History of Present Illness: Patient is a nice 83-year-old female who presents to ED today via EMS for evaluation following a fall. Patient states she fell this morning around 9 AM. Patient states she has fallen multiple times over the past 2 months or so. Patient states back in early July she fell and was told that she sustained compression fractures to her lumbar spine. She states pain has continued to slowly improve but states when it hits it brings me to my knees which is what caused her to fall today. She denies chest pain, shortness of breath, palpitations, dizziness, or lightheadedness. Her only physical complaint at this time is some pain to the right lower back. She arrives tachycardic and very hypertensive. Patient takes multiple blood pressure medications none of which she took this morning. Patient states she is unsure whether she hit her head or not. No LOC. MD complaint: fall Onset (ago): hour(s) Fall from: standing Fall witnessed: no Place fall occurred: home Loss of consciousness: None Prolonged down time: no Symptoms prior to fall: none Location of injury: back Associated symptoms-after fall: Reports no associated symptoms; Denies abdominal pain, chest pain, headache(s), hematuria, lightheadedness or neck pain Review of Systems 2 Eyes: Denies: change in vision, blurry vision, photophobia, eye discharge, floaters or seeing flashes ENMT: Denies: throat pain, odynophagia, ear or mastoid pain, ear discharge, nasal discharge, epistaxis or sinus pain Card: Denies: chest pain, palpitations, irregular heart rhythm, edema, swelling of feet/ankles, lightheadedness, syncope, pre-syncope or dyspnea on exertion Resp: Denies: dyspnea or pain on inspiration GI: Denies: abdominal pain : Denies: flank pain or hematuria Musc: Reports: back pain; Denies: neck pain, extremity pain, extremity swelling, joint pain, joint swelling, joint redness or joint warmth Neuro: Denies: headache(s), numbness in extremities, weakness in extremities, sensory changes or dizziness PFSH ED 2 PFSH: Medical History Wound, open, elbow Painful orthopaedic hardware Acute lacunar stroke Dyslipidemia Diabetes Hypertension History of CVA (cerebrovascular accident) TIA (transient ischemic attack) Social History Smoking and tobacco/nicotine status: former use of tobacco/nicotine Second hand smoke exposure: No Alcohol intake: never Substance/Drug Use: never Lives independently: No Household members: friend(s) Marital status: Single service: No Current occupational status: disabled Current gender identity: Female Special brian needs: No Agree to transfusion: Yes Physical Exam 2 Const: COMMON NORMALS: no acute distress, average body habitus, patient oriented x3, no limitations, healthy appearing, alert and well nourished G ENERAL APPEARANCE: cooperative ORIENTATION/CONSCIOUSNESS: Yes awake, Yes oriented to person, Yes oriented to place and Yes oriented to time HENMT: COMMON NORMALS: normocephalic, atraumatic and TM's normal bilaterally HEAD & SCALP: normal to inspection, normocephalic and atraumatic; no Soria's sign, no hematoma and no raccoon eyes FACE & SINUS: normal facial exam TYMPANIC MEMBRANE: TM's normal bilaterally MOUTH: other (no intraoral injuries noted) Eye: COMMON NORMALS: Equal, round and reactive pupils present and EOMs intact bilaterally GENERAL EYE: appearance normal, both eyes and all related structures and normal light reflex PUPIL: Yes Equal, round and reactive pupils present DIRECT OPHTHALMOSCOPY: Yes normal light reflex Neck/C-Spine: COMMON NORMALS: full ROM GENERAL: Yes normal visual inspection CERVICAL SPINE: Yes cervical ROM normal, No pain with cervical ROM, No Cervical spine tenderness, No step off deformity and No Paracervical muscle tenderness Chest: COMMONS NORMALS: normal inspection of the chest and normal palpation of entire chest wall Resp: COMMON NORMALS: normal respiratory effort and clear to auscultation bilaterally AUSCULTATION: clear to auscultation bilaterally Cardio: COMMON NORMALS: regular rate and regular rhythm RATE: regular rate RHYTHM: regular rhythm GI: COMMON NORMALS: Normal to inspection, nondistended, normoactive bowel sounds present, Soft to palpation, non-tender, No hepatosplenomegaly present and no masses INSPECTION: Yes normal to inspection and No abdominal wall ecchymosis AUSCULTATION: Yes normoactive bowel sounds PALPATION: Yes Soft to palpation and Yes No hepatosplenomegaly present Back/Pelvis: COMMON NORMALS: thoracic and lumbar spine normal to inspection, no thoracic nor lumbar tenderness and thoraco-lumbar ROM normal SACRUM: no tenderness COCCYX: no tenderness BACK IMAGE (FEMALE): 1. mild TTP Extremity: COMMON NORMALS: normal to inspection and full ROM GENERAL: Yes normal exam except as noted Neuro: [place] COMA SCALE: document GCS findings [place] coma scale eye opening: Spontaneous [place] coma scale verbal response: Orientated [place] coma scale motor response: Obey commands [place] coma scale total score: 15 COMMON NORMALS: patient oriented x3, CN's II-XII intact bilaterally, moves all extremities, no focal motor deficits, no sensory deficits noted and gait normal SENSORIUM/ORIENTATION: Yes alert, Yes oriented to person, Yes oriented to place and Yes oriented to time SPEECH: speech normal GAIT: Yes Normal gait present Skin: COMMON NORMALS: no rashes or lesions noted GENERAL SKIN EXAM: no rashes or lesions noted TRAUMA: no lacerations or abrasions Course 2 Vital Signs: Vital signs: Vital Signs Temperature 98.4 F 09/22/23 10:09 Pulse Rate 77 09/22/23 13:30 Respiratory Rate 16 09/22/23 13:30 Blood Pressure 150/91 09/22/23 13:30 Pulse Oximetry 93 09/22/23 13:30 Oxygen Delivery Me thod Room Air 09/22/23 13:30 MDM - Fall Medical Decision Making Patient is a nice 83-year-old female presents to ED today with complaint of a fall this morning. Patient states she has had approximately 2-3 falls over the past 2 months or so. Patient states prior to the fall she has never had any chest pain, shortness of breath, difficulty breathing, or palpitations. She thinks her falls possibly are related to her back. She arrived today with a complaint of right lower back pain. She was tachycardic and hypertensive upon arrival. Patient takes multiple blood pressure medications in the morning and had not taken any of these. These were provided to her and repeat blood pressure is much improved at 150s/90s. Heart rate has also improved down to the 70s. Evaluation here overall is nonactionable. Very mild hypokalemia at 3.2. She was given oral potassium for this. CT head and XRs are negative. Patient had EKGs performed. These EKGs do show T wave inversions in leads II III, aVF as well as V3-V6. These are new since 2020. Some of this may be LVH. Baseline trop is 28 with a non-significant delta of 2.43. Again she has no complaints of chest pain. Discussed with Dr. Tarango who recommended outpatient cardiology follow up. Return to ED precautions given. Lab Data 09/22/23 10:40 09/22/23 10:40 Radiology Impressions Cervical Spine X-Ray 09/22/23 10:25 IMPRESSION: Very limited study due to the patient's shoulders. No acute findings. Chest X-Ray 09/22/23 10:25 IMPRESSION: No acute findings. Lumbar Spine X-Ray 09/22/23 10:25 IMPRESSION: No acute findings. Pelvis X-Ray 09/22/23 10:25 IMPRESSION: No acute findings. Laboratory Results WBC 11.45 10^3/uL (3.29-11.43) H 09/22/23 10:40 RBC 4.81 10^6/uL (3.85-5.65) 09/22/23 10:40 Hgb 12.60 g/dL (11.27-16.99) 09/22/23 10:40 Hct 41.4 % (36-47) 09/22/23 10:40 MCV 86.1 fl (85-98) 09/22/23 10:40 MCH 26.2 pg (27-33) L 09/22/23 10:40 MCHC 30.4 g/dL (30-55) 09/22/23 10:40 RDW 13.5 % (12.1-15.1) 09/22/23 10:40 Plt Count 300 10^3/cmm (157-399) 09/22/23 10:40 MPV 12.7 fL (7.4-10.4) H 09/22/23 10:40 Neut % (Auto) 72.7 % 09/22/23 10:40 Lymph % (Auto) 12.7 % 09/22/23 10:40 [place] % (Auto) 12.8 % 09/22/23 10:40 Eos % (Auto) 1.0 % 09/22/23 10:40 Baso % (Auto) 0.4 % 09/22/23 10:40 Neut # (Auto) 8.32 10^3/uL (1.8-7.7) H 09/22/23 10:40 Lymph # (Auto) 1.5 10^3/uL (0.8-4.8) 09/22/23 10:40 [place] # (Auto) 1.5 10^3/uL (0.2-0.9) H 09/22/23 10:40 Eos # (Auto) 0.1 10^3/uL (0.0-0.8) 09/22/23 10:40 Baso # (Auto) 0.1 10^3/uL (0.0-0.1) 09/22/23 10:40 Nucleated RBC % (auto) 0 % 09/22/23 10:40 Nucleated RBCs # 0.0 /100WBC 09/22/23 10:40 Sodium 143 mmol/L (136-145) 09/22/23 10:40 Potassium 3.2 mmol/L (3.5-5.1) L 09/22/23 10:40 Chloride 102 mmol/L (98-107) 09/22/23 10:40 Carbon Dioxide 28 mmol/L (22-29) 09/22/23 10:40 Anion Gap 16.2 (5-19) 09/22/23 10:40 BUN 15 mg/dL (8-23) 09/22/23 10:40 Creatinine 1.2 mg/dL (0.5-0.9) H 09/22/23 10:40 GFR Calculation Not Reportable 09/22/23 10:40 Glucose 179 mg/dL (65-115) H 09/22/23 10:40 Calculated Osmolality 301 mOsm/kg (285-295) H 09/22/23 10:40 Calcium 9.6 mg/dL (8.5-10.5) 09/22/23 10:40 Total Bilirubin 0.5 mg/dL (0.15-1.2) 09/22/23 10:40 AST 11 U/L (0-32) 09/22/23 10:40 ALT < 5 U/L (0-33) 09/22/23 10:40 Alkaline Phosphatase 90 U/L (35-105) 09/22/23 10:40 Troponin T Baseline 28 ng/L (0-10) H 09/22/23 10:40 Troponin T 120 Minute 30.43 ng/L (0-10) H 09/22/23 12:45 Delta Troponin T 2.43 ABS# (0-10) 09/22/23 12:45 Total Protein 6.1 g/dL (6.6-8.7) L 09/22/23 10:40 Albumin 3.2 g/dL (3.5-5.2) L 09/22/23 10:40 Globulin 2.9 g/dL (1.3-4.6) 09/22/23 10:40 Urine Color Yellow (Yellow) 09/22/23 12:49 Urine Appearance Clear (CLEAR) 09/22/23 12:49 Urine pH 5 (5-7) 09/22/23 12:49 Ur Specific [place] 1.015 (1.005-1.030) 09/22/23 12:49 Urine Protein 3+ (Negative) H 09/22/23 12:49 Urine Glucose (UA) 2+ (Normal) H 09/22/23 12:49 Urine Ketones 1+ (Negative) H 09/22/23 12:49 Urine Blood Trace (Negative) H 09/22/23 12:49 Urine Nitrate Negative (Negative) 09/22/23 12:49 Urine Bilirubin Neg (Negative) 09/22/23 12:49 Urine Urobilinogen 1 mg/dL (Negative) H 09/22/23 12:49 Ur Leukocyte Esterase Negative (Negative) 09/22/23 12:49 Urine RBC 0-4 /hpf (0-2) H 09/22/23 12:49 Urine WBC 0-4 /hpf (0-5) H 09/22/23 12:49 Ur Squamous Epith Cells 0-4 /hpf (0-5) H 09/22/23 12:49 Calcium Oxalate Crystal Rare /hpf 09/22/23 12:49 Amorphous Sediment Not Reportable 09/22/23 12:49 Urine Bacteria Trace /hpf (NONE) 09/22/23 12:49 Hyaline Casts 0-4 /lpf H 09/22/23 12:49 Urine Mucus Trace /hpf 09/22/23 12:49 All radiology interpretation(s) finalized by discharge Discharge Plan Discharge Patient Disposition: Home Clinical Impression: Fall, ST segment changes on electrocardiogram Condition: Stable Prescriptions: No Action Lantus Solostar U-100 Insulin 100 unit/mL (3 mL) insulin pen 50 unit SUBCUT QAM 90 Days Qty: 45 0RF (DME) blood-glucose meter [Blood Glucose Monitoring] Kit See Rx Instructions .ROUTE .MEDSUPPLY Qty: 1 0RF Rx Instructions: As directed; pt to test 1 x day (DME) Blood Glucose Test Strip See Rx Instructions .ROUTE .MEDSUPPLY Qty: 100 4RF Rx Instructions: As directed (DME) lancets [TRUEplus Lancets] 33 gauge misc See Rx Instructions .ROUTE .COMPLEX Qty: 300 0RF Dose Instruction: TEST BLOOD SUGAR THREE TIMES DAILY DIRECTED AND NEEDED FOR HYPOGLYCEMIA Rx Instructions: TEST BLOOD SUGAR THREE TIMES DAILY DIRECTED AND NEEDED FOR HYPOGLYCEMIA aspirin 325 mg Tablet 325 mg PO DAILY multivitamin Tablet 1 tab PO QAM fluoxetine 40 mg capsule 40 mg PO QAM trazodone 50 mg tablet 50 mg PO QPM atenolol 100 mg tablet 100 mg PO QAM alendronate 70 mg tablet 70 mg PO Q7D Rx Instructions: ON WEDNESDAYS lovastatin 40 mg tablet 40 mg PO QAM clopidogrel 75 mg tablet 75 mg PO QAM clonidine HCl 0.2 mg tablet 0.2 mg PO BID amlodipine 10 mg tablet 10 mg PO QAM omeprazole 20 mg capsule,delayed release(DR/EC) 20 mg PO BID furosemide 20 mg tablet 20 mg PO QAM benazepril 20 mg tablet 20 mg PO QAM potassium chloride 20 mEq tablet extended release 20 meq PO QAM tramadol 50 mg tablet 50 mg PO Q8H PRN (Reason: pain) Qty: 14 0RF Discharge Orders: Discharge ED (Routine); Ordered 09/22/23 Ordered By: Teresita Rodriguez Referrals: Betty Sanchez FNP [Primary Care Provider] - Activity Restrictions/Additional Instructions: As we discussed your x-rays are related to your recent fall are negative. Blood work overall was unremarkable. As we discussed there were some EKG changes that were new from EKGs performed in 2020. As we discussed I would like you to follow-up with cardiology for this. Case management should be reaching out to you soon to help set you up with this follow-up appointment. Otherwise you can follow-up with primary care in the meantime. You need to return to the emergency department for any complaints of chest pain, shortness of breath, difficulty breathing, palpitations, lightheadedness/dizziness, or any other concerns you may have. Coding Level of Care Code ED Sourcing Coordinator for Dania Romo
--- NOTE | 2023-09-22 10:25 | XRR_ITS ---
PROCEDURE INFORMATION: Exam: XR Chest Exam date and time: 09/22/2023 10:48 AM Age: 83 years old Clinical indication: Injury or trauma; Fall; Blunt trauma (contusions or hematomas); Additional info: Falls TECHNIQUE: Imaging protocol: Radiologic exam of the chest. Views: 1 view. COMPARISON: CR XR chest 2V* [id number] 02/18/2022 10:55 AM FINDINGS: Lungs: Unremarkable. No consolidation. Pleural spaces: Unremarkable. No pleural effusion. No pneumothorax. Heart/Mediastinum: Unremarkable. No cardiomegaly. Bones/joints: Unremarkable. XR/XR chest 1V portable [id number] IMPRESSION: No acute findings.
--- NOTE | 2023-09-22 10:25 | CT_ITS ---
WS: [id number] CT HEAD TECHNIQUE: Noncontrast CT of the head obtained from the skullbase to the vertex. CLINICAL INFORMATION: trauma COMPARISON: CT 09/12/2021 DLP: 1013.[address] scans at [facility] use at least one of these dose optimization techniques: automated e xposure control; mA and/or kV adjustment per patient size (includes targeted exams where dose is matc hed to clinical indication); or iterative reconstruction. FINDINGS: No evidence of intracranial hemorrhage or mass effect. Ventricular system and basal cisterns are jones nt. Advanced small vessel changes with moderate parenchymal volume loss. Chronic lacunar infarcts inv olving the basal ganglia, thalamus and left cerebellum are unchanged. Intracranial vascular calcifica tion. Paranasal sinuses and mastoid air cells are well aerated. .Normal visualized soft tissues. IMPRESSION: 1. No evidence of intracranial hemorrhage or mass effect. 2. Advanced small vessel changes with moderate parenchymal volume loss. Intracranial vascular calcif ication. 3. No acute intracranial findings.
--- NOTE | 2023-09-22 10:25 | XRR_ITS ---
PROCEDURE INFORMATION: Exam: XR Pelvis Exam date and time: 09/22/2023 11:01 AM Age: 83 years old Clinical indication: Injury or trauma; Fall; Blunt trauma (contusions or hematomas); Does not apply; Pelvic region TECHNIQUE: Imaging protocol: Radiologic exam of the pelvis. Views: 1 or 2 view. COMPARISON: CR XR pelvis 1-2V* [id number] 07/31/2023 3:01 PM FINDINGS: Tubes, catheters and devices: A clip projects over the right hip region. Bones/joints: No fracture or other acute abnormality. Stable mild degenerative changes are seen in the hips. Soft tissues: Unremarkable. XR/XR pelvis 1-2V* [id number] IMPRESSION: No acute findings.
--- NOTE | 2023-09-22 10:25 | XRR_ITS ---
PROCEDURE INFORMATION: Exam: XR Cervical Spine Exam date and time: 09/22/2023 10:49 AM Age: 83 years old Clinical indication: Injury or trauma; Fall; Concussion/head injury TECHNIQUE: Imaging protocol: Radiologic exam of the cervical spine. Views: 2 or 3 views. COMPARISON: CT angio headneck* [id number] 09/02/2021 1:42 PM FINDINGS: Bones/joints: The patient's shoulders obscure the C5 disc space and below. No identifiable fracture. The bones are demineralized. Severe degenerative disc disease is seen at C3 and C4. There is mild retrolisthesis of C4 on C5. Alignment is otherwise normal. Soft tissues: Unremarkable. XR/XR cervical spine 3V* [id number] IMPRESSION: Very limited study due to the patient's shoulders. No acute findings.
--- NOTE | 2023-09-22 10:25 | XRR_ITS ---
PROCEDURE INFORMATION: Exam: XR Lumbosacral Spine Exam date and time: 09/22/2023 11:03 AM Age: 83 years old Clinical indication: Injury or trauma; Fall; Blunt trauma (contusions or hematomas) TECHNIQUE: Imaging protocol: Radiologic exam of the lumbosacral spine. Views: 2 or 3 views. COMPARISON: CR XR lumbar spine 2-3V* [id number] 08/21/2023 11:56 AM FINDINGS: Bones/joints: No acute fracture. The bones are demineralized. There is stable mild anterolisthesis of L4 on L5. No significant disc space narrowing. There is facet arthropathy particularly in the lower levels. Soft tissues: Unremarkable. Vasculature: Aortoiliac calcifications are seen. XR/XR lumbar spine 2-3V* [id number] IMPRESSION: No acute findings.
--- NOTE | 2023-09-22 10:25 | ECG_ITS ---
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 Measurements Intervals [place] Rate: 99 P: 65 [place]: 148 QRS: 41 QRSD: 98 T: -74 QT: 374 QTc: 481 Interpretive Statements SINUS RHYTHM POSSIBLE LEFT ATRIAL ENLARGEMENT [-0.1mV P-WAVE IN V1/V2] LEFT VENTRICULAR HYPERTROPHY AND ST-T CHANGE [VOLTAGE CRITERIA PLUS ST/T ABNORMALITY] Compared to ECG 09/12/2021 14:09:34 ST (T wave) deviation now present Electronically Signed On 09-22-2023 17:15:15 CASSANDRA DEVELOPER by Claude Mascorro M.D. [id number]
[2023-09-22 11:06] LABS: Basophils # 0.1 10^3/uL (0.0-0.1); Basophils % 0.4 %; Eosinophils # 0.1 10^3/uL (0.0-0.8); Hematocrit 41.4 % (36-47); Lymphocytes # 1.5 10^3/uL (0.8-4.8); Lymphocytes % 12.7 %; Mean Corpuscular HGB Conc 30.4 g/dL (30-55); Mean Corpuscular Hemoglobin 26.2 pg (27-33); Mean Corpuscular Volume 86.1 fl (85-98); Mean Platelet Volume 12.7 fL (7.4-10.4); Monocytes # 1.5 10^3/uL (0.2-0.9); Monocytes % 12.8 %; Neutrophils # 8.32 10^3/uL (1.8-7.7); Neutrophils % 72.7 %; Nucleated Red Blood Cells % 0 %; Platelet Count 300 10^3/cmm (157-399); Red Blood Count 4.81 10^6/uL (3.85-5.65); Red Cell Distribution Width 13.5 % (12.1-15.1); White Blood Count 11.45 10^3/uL (3.29-11.43)
[2023-09-22 11:20] VITALS: BP 225/117
[2023-09-22] MEDS: cloNIDine 0.1 mg Tablet PO (11:20)
[2023-09-22] MEDS: amlodipine 10 mg Tablet PO (11:21)
[2023-09-22] MEDS: atenolol 50 mg Tablet 100 MG PO (11:21)
[2023-09-22 11:30] LABS: Alanine Aminotransferase < 5 U/L (0-33); Albumin Level 3.2 g/dL (3.5-5.2); Alkaline Phosphatase 90 U/L (35-105); Anion Gap 16.2 (5-19); Aspartate Amino Transferase 11 U/L (0-32); Blood Urea Nitrogen 15 mg/dL (8-23); Calcium 9.6 mg/dL (8.5-10.5); Carbon Dioxide 28 mmol/L (22-29); Chloride 102 mmol/L (98-107); Globulin 2.9 g/dL (1.3-4.6); Glucose 179 mg/dL (65-115); Osmolality Calculated 301 mOsm/kg (285-295); Potassium 3.2 mmol/L (3.5-5.1); Sodium 143 mmol/L (136-145); Total Bilirubin 0.5 mg/dL (0.15-1.2); Total Protein 6.1 g/dL (6.6-8.7)
[2023-09-22 11:33] LABS: Troponin(5th) Baseline 28 ng/L (0-10)
[2023-09-22 12:16] VITALS: BP 165/87; PULSE 94; RESP 16; O2SAT 94
--- NOTE | 2023-09-22 12:42 | ECG_ITS ---
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 Measurements Intervals [place] Rate: 76 P: 44 [place]: 150 QRS: 6 QRSD: 102 T: 248 QT: 417 QTc: 470 Interpretive Statements SINUS RHYTHM LEFT VENTRICULAR HYPERTROPHY AND ST-T CHANGE [VOLTAGE CRITERIA PLUS ST/T ABNORMALITY] Compared to ECG 09/22/2023 10:32:55 No significant changes Electronically Signed On 09-22-2023 17:07:28 MUD CLEANER OPERATOR by Claude Mascorro M.D. [id number]
[2023-09-22] MEDS: potassium chloride ER 20 mEq Tablet 40 MEQ PO (13:06)
[2023-09-22 13:17] LABS: Troponin 5 2HR 30.43 ng/L (0-10); Troponin 5 2HR Delta 2.43 ABS# (0-10)
[2023-09-22 13:21] LABS: Glucose Urine UA 2+ (Normal); Protein Urine 3+ (Negative); Specific Gravity, Urine 1.015 (1.005-1.030); Urine Appearance Clear (CLEAR); Urine Color Yellow (Yellow); pH Urine 5 (5-7)
[2023-09-22 13:22] LABS: Add Urine Culture? No; Add Urine Microscopic? YES; Bacteria Urine TRACE /hpf; Bilirubin Urine Neg (Negative); Blood Urine Trace (Negative); Calcium Oxalate Crystals Urine RARE /hpf; Hyaline Casts Urine 0-4 /lpf; Ketones Urine 1+ (Negative); Leukocyte Esterase Urine Negative (Negative); Mucus Urine TRACE /hpf; Nitrate Urine Negative (Negative); RBC Urine 0-4 /hpf (0-2); Squamous Epithelial Cell Urine 0-4 /hpf (0-5); Urobilinogen Urine 1 mg/dL (Negative); WBC Urine 0-4 /hpf (0-5)
[2023-09-22 13:30] VITALS: BP 150/91; PULSE 77; RESP 16; O2SAT 93
[2023-09-22 14:30] VITALS: BP 150/91; PULSE 78; RESP 18; TEMP 36.8; O2SAT 91
== END 2023-09-22 14:33 | disposition home or self-care (01) ==
PROVIDERS: Emergency Provider Physician Assistant; PCP Nurse Practitioner Family
DX: M54.50 Low back pain, unspecified (principal); Z79.4 Long term (current) use of insulin; Z79.82 Long term (current) use of aspirin; Z79.02 Long term (current) use of antithrombotics/antiplatelets; Z87.891 Personal history of nicotine dependence; E78.5 Hyperlipidemia, unspecified; E11.9 Type 2 diabetes mellitus without complications; I10 Essential (primary) hypertension; Z86.73 Personal history of transient ischemic attack (TIA), and cerebral infarction without residual deficits; R94.31 Abnormal electrocardiogram [ECG] [EKG]; W19.XXXA Unspecified fall, initial encounter
CPT/HCPCS: 36415; 70450; 71045; 72040; 72100; 72170; 80053; 81001; 84484; 85025; 93005; 99285

== ENCOUNTER 2023-10-08 06:42 | Inpatient (IN) | payer MEDICARE, MEDICAID, SELFPAY ==
[2023-10-08] VITALS (9 sets, daily range): BP systolic 117–207; BP diastolic 58–124; PULSE 63–115; RESP 14–18; TEMP 36.3–36.6; O2SAT 92–98; BMI 27.4; BMI 25.9
--- NOTE | 2023-10-08 06:46 | XR_ITS ---
WS: [id number] Portable AP upright chest, 10/08/2023 Clinical Data: dyspnea/cough Comparison: Portable chest, 09/22/2023 Findings: No nodules, masses or effusions are seen. The heart is normal. The pulmonary vascularity is not increased. No pneumonia or pneumothorax is seen. The aortic arch shows calcification and tortuos ity. 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 Monitor leads are on the c hest wall. Impression: Atherosclerosis.
--- NOTE | 2023-10-08 06:54 | ECG_ITS ---
[facility] Test Date: 2023-10-08 Pat Name: Cynthia Taveras Department: Room: Gender: Female Coach Operator: : 1940 Requested By: Clifford Salomon Order Number: [id number] Murphy MD: Zarina Daily M.D. Measurements Intervals [place] Rate: 102 P: 66 [place]: 137 QRS: 37 QRSD: 94 T: 27 QT: 378 QTc: 493 Interpretive Statements SINUS TACHYCARDIA WITH OCCASIONAL VENTRICULAR PREMATURE COMPLEXES POSSIBLE LEFT ATRIAL ENLARGEMENT [-0.1mV P-WAVE IN V1/V2] POSSIBLE LEFT VENTRICULAR HYPERTROPHY [VOLTAGE CRITERIA PLUS LAE OR QRS WIDENING] NONSPECIFIC T-WAVE ABNORMALITY Compared to ECG 09/22/2023 12:29:11 Ventricular premature complex(es) now present T-wave abnormality now present Sinus rhythm no longer present ST (T wave) deviation no longer present Electronically Signed On 10-08-2023 7:15:58 OVERCASTER by Zarina Daily M.D. [id number]
--- NOTE | 2023-10-08 07:11 | XR_ITS ---
WS: [id number] Lumbar spine, 3 views, 10/08/2023 Clinical Data: trauma Comparison: Lumbar spine, 09/22/2023 Findings: No new compression fractures or subluxation is seen. There are wedge deformities of the lower thoraci c vertebral bodies and the L1 vertebral body which have not changed. There is osteoarthritic change o f the lower thoracic and the L1 vertebral bodies which is stable. There is disc narrowing at T12-L1 a nd L1-L2 unchanged. The transverse processes and SI joints are normal. There are cholecystectomy clips in the right upper quadrant. Impression: 1. Wedge deformities of the lower thoracic vertebral bodies and L1 unchanged. 2. 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 3. Degenerative disc narrowing of the lower thoracic interspaces in the L1-L2 disc level.
--- NOTE | 2023-10-08 07:14 | ED_ITS ---
HPI - Weakness 2 General: Chief complaint: ER Hold Stated complaint: failure to thrive Time Seen by Provider: 10/08/23 06:43 Source: patient Mode of arrival: EMS History of Present Illness: 83-year-old female presents emergency ro om via EMS from home. Evidently she fell back in July as a compression fracture and has not been able to get around she lives at home with a family member. She told me it was her stepbrother and the nurses notes from triage it says it was her in any event she tells me that she has not been able to get much assistance she has been in bed the last 3 days and has not eaten at all has not had any of her medications her blood pressure is really poorly controlled she did fall twice she thinks it has been within the last weeks that she knew she fell once yesterday she has some low back pain which has been present since her fall in July. She did not strike her head or lose consciousness. She denies fever sweats chills abdominal pain or chest pain no dysuria urgency or frequency MD Complaint: generalized weakness and difficulty walking Onset (ago): week(s) Location: generalized Relieving factors: none Exacerbating factors: none Associated symptoms: Denies chest pain, chills, confusion, melena, decreased appetite, diaphoresis, dysuria, easy bruising, fever(s), headache(s), myalgias, nausea, rash, short of breath, syncope or vomiting Review of Systems 2 Const: Denies: fever(s), chills or diaphoresis Card: Denies: chest pain or syncope Resp: Denies: dyspnea GI: Denies: abdominal pain, nausea, vomiting or melena : Denies: dysuria, urinary frequency or urinary urgency Musc: Denies: neck pain or back pain Skin/Breast: Denies: rash Neuro: Denies: headache(s) or confusion Jett/Lymph: Denies: easy bruising PFSH ED 2 PFSH: Medical History Wound, open, elbow Painful orthopaedic hardware Acute lacunar stroke Dyslipidemia Diabetes Hypertension History of CVA (cerebrovascular accident) TIA (transient ischemic attack) Social History Smoking and tobacco/nicotine status: former use of tobacco/nicotine Second hand smoke exposure: No Alcohol intake: never Substance/Drug Use: never Lives independently: No Household members: friend(s) Marital status: Single service: No Current occupational status: disabled Current gender identity: Female Special brian needs: No Agree to transfusion: Yes Physical Exam 2 Const: COMMON NORMALS: no acute distress GENERAL APPEARANCE: cooperative and comfortable ORIENTATION/CONSCIOUSNESS: Yes awake, Yes oriented to person, Yes oriented to place and Yes oriented to time HENMT: COMMON NORMALS: normocephalic, atraumatic and hearing grossly normal bilaterally HEAD & SCALP: normocephalic and atraumatic Resp: COMMON NORMALS: normal respiratory effort, No retractions, No use of accessory muscles and clear to auscultation bilaterally AUSCULTATION: clear to auscultation bilaterally Cardio: COMMON NORMALS: regular rate, regular rhythm and No murmurs present (Cardio) RATE: regular rate RHYTHM: regular rhythm GI: COMMON NORMALS: Soft to palpation and No hepatosplenomegaly present A USCULTATION: Yes normoactive bowel sounds PALPATION: Yes Soft to palpation, No Tenderness to palpation present (GI), No Guarding due to palpation present (GI) and Yes No hepatosplenomegaly present Extremity: COMMON NORMALS: normal to inspection, capillary refill normal, no clubbing, cyanosis or edema, no calf tenderness and no pedal edema Neuro: SENSORIUM/ORIENTATION: Yes oriented to person, Yes oriented to place and Yes oriented to time Skin: COMMON NORMALS: no rashes or lesions noted GENERAL SKIN EXAM: no rashes or lesions noted Course 2 Vital Signs: Vital signs: Vital Signs Temperature 98 F 10/08/23 06:43 Pulse Rate 115 H 10/08/23 06:43 Respiratory Rate 18 10/08/23 06:43 Blood Pressure 207/124 10/08/23 06:43 Pulse Oximetry 92 10/08/23 06:43 Oxygen Delivery Me thod Room Air 10/08/23 06:43 MDM - Weakness Medical Decision Making CTA shows small pulmonary emboli. She complained of some back pain and significantly elevated blood pressure earlier we had given her regular home meds as well as some IV push medicine the lower blood pressure blood pressure improved also gave her tramadol to list on her home list she became quite sedate she used confused and disoriented had a difficult time formulating intelligible responses whereas when she first arrived she was completely normal. She has been ordered 500 milliliters bolus of normal saline. Additionally will admit continue to monitor mental status. Discussed with Dr. Pires he is going to take care of anticoagulation for the pulmonary embolism. Medical Records I reviewed the patient's medical records. Lab Data I reviewed the patient's lab results. 10/08/23 07:02 10/08/23 07:02 Laboratory Results WBC 14.10 10^3/uL (3.29-11.43) H 10/08/23 07:02 RBC 4.78 10^6/uL (3.85-5.65) 10/08/23 07:02 Hgb 12.20 g/dL (11.27-16.99) 10/08/23 07:02 Hct 39.5 % (36-47) 10/08/23 07:02 MCV 82.6 fl (85-98) L 10/08/23 07:02 MCH 25.5 pg (27-33) L 10/08/23 07:02 MCHC 30.9 g/dL (30-55) 10/08/23 07:02 RDW 13.3 % (12.1-15.1) 10/08/23 07:02 Plt Count 522 10^3/cmm (157-399) H 10/08/23 07:02 MPV 11.7 fL (7.4-10.4) H 10/08/23 07:02 Neut % (Auto) 81.8 % 10/08/23 07:02 Lymph % (Auto) 8.1 % 10/08/23 07:02 [place] % (Auto) 8.4 % 10/08/23 07:02 Eos % (Auto) 0.8 % 10/08/23 07:02 Baso % (Auto) 0.4 % 10/08/23 07:02 Neut # (Auto) 11.55 10^3/uL (1.8-7.7) H 10/08/23 07:02 Lymph # (Auto) 1.1 10^3/uL (0.8-4.8) 10/08/23 07:02 [place]ster # (Auto) 1.2 10^3/uL (0.2-0.9) H 10/08/23 07:02 Eos # (Auto) 0.1 10^3/uL (0.0-0.8) 10/08/23 07:02 Baso # (Auto) 0.1 10^3/uL (0.0-0.1) 10/08/23 07:02 Nucleated RBC % (auto) 0 % 10/08/23 07:02 Nucleated RBCs # 0.0 /100WBC 10/08/23 07:02 Sodium 137 mmol/L (136-145) 10/08/23 07:02 Potassium 3.3 mmol/L (3.5-5.1) L 10/08/23 07:02 Chloride 97 mmol/L (98-107) L 10/08/23 07:02 Carbon Dioxide 27 mmol/L (22-29) 10/08/23 07:02 Anion Gap 16.3 (5-19) 10/08/23 07:02 BUN 22 mg/dL (8-23) 10/08/23 07:02 Creatinine 1.1 mg/dL (0.5-0.9) H 10/08/23 07:02 GFR Calculation Not Reportable 10/08/23 07:02 Glucose 178 mg/dL (65-115) H 10/08/23 07:02 POC Glucose 182 mg/dL (70-110) H 10/08/23 07:33 Calculated Osmolality 292 mOsm/kg (285-295) 10/08/23 07:02 Calcium 8.9 mg/dL (8.5-10.5) 10/08/23 07:02 Total Bilirubin 0.5 mg/dL (0.15-1.2) 10/08/23 07:02 AST 31 U/L (0-32) 10/08/23 07:02 ALT 13 U/L (0-33) 10/08/23 07:02 Alkaline Phosphatase 113 U/L (35-105) H 10/08/23 07:02 Creatine Kinase 36 U/L (26-192) 10/08/23 07:02 Total Protein 6.5 g/dL (6.6-8.7) L 10/08/23 07:02 Albumin 2.7 g/dL (3.5-5.2) L 10/08/23 07:02 Globulin 3.8 g/dL (1.3-4.6) 10/08/23 07:02 Lipase 18 U/L (13-60) 10/08/23 07:02 Serum Ketones Negative (Negative) 10/08/23 07:02 All radiology interpretation(s) finalized by discharge Discharge Plan Discharge Patient Disposition: Admitted As Inpatient Admit Provider: Valdez Gonsalves Clinical Impression: Weakness, Hypertension, Diabetes, Pulmonary embolism, Medication side effects Condition: Stable Coding Level of Care Code ED Food Service Counter Clerk for Dania Romo
[2023-10-08 07:27] LABS: Basophils # 0.1 10^3/uL (0.0-0.1); Basophils % 0.4 %; Eosinophils # 0.1 10^3/uL (0.0-0.8); Eosinophils % 0.8 %; Hematocrit 39.5 % (36-47); Lymphocytes # 1.1 10^3/uL (0.8-4.8); Lymphocytes % 8.1 %; Mean Corpuscular HGB Conc 30.9 g/dL (30-55); Mean Corpuscular Hemoglobin 25.5 pg (27-33); Mean Corpuscular Volume 82.6 fl (85-98); Mean Platelet Volume 11.7 fL (7.4-10.4); Monocytes # 1.2 10^3/uL (0.2-0.9); Monocytes % 8.4 %; Neutrophils # 11.55 10^3/uL (1.8-7.7); Neutrophils % 81.8 %; Nucleated Red Blood Cells % 0 %; Platelet Count 522 10^3/cmm (157-399); Red Blood Count 4.78 10^6/uL (3.85-5.65); Red Cell Distribution Width 13.3 % (12.1-15.1)
[2023-10-08] MEDS: lisinopril 20 mg Tablet PO (07:35)
[2023-10-08 07:36] LABS: Glucose Point of Care 182 mg/dL (70-110)
[2023-10-08 07:36] LABS: Ketone (Acetest) Serum Negative (Negative)
[2023-10-08] MEDS: pantoprazole DR 40 mg Tablet PO (07:36)
[2023-10-08] MEDS: cloNIDine 0.1 mg Tablet 0.2 MG PO (07:36)
[2023-10-08] MEDS: TRAMadol 50 mg Tablet PO (07:36)
[2023-10-08] MEDS: amlodipine 10 mg Tablet PO (07:36)
[2023-10-08] MEDS: FUROsemide 20 mg Tablet PO (07:36)
[2023-10-08 07:43] LABS: Alanine Aminotransferase 13 U/L (0-33); Albumin Level 2.7 g/dL (3.5-5.2); Alkaline Phosphatase 113 U/L (35-105); Anion Gap 16.3 (5-19); Aspartate Amino Transferase 31 U/L (0-32); Blood Urea Nitrogen 22 mg/dL (8-23); Calcium 8.9 mg/dL (8.5-10.5); Carbon Dioxide 27 mmol/L (22-29); Chloride 97 mmol/L (98-107); Creatine Phosphokinase 36 U/L (26-192); Globulin 3.8 g/dL (1.3-4.6); Glucose 178 mg/dL (65-115); Lipase 18 U/L (13-60); Osmolality Calculated 292 mOsm/kg (285-295); Potassium 3.3 mmol/L (3.5-5.1); Sodium 137 mmol/L (136-145); Total Bilirubin 0.5 mg/dL (0.15-1.2); Total Protein 6.5 g/dL (6.6-8.7)
--- NOTE | 2023-10-08 08:01 | PC.PHAR ---
PT HAD HOME MEDICATIONS IN ROOM WITH HER- ALL MEDICATIONS FILLED IN July HOWEVER ALL BOTTLES ARE MISSING VERY FEW PILLS- PT STS SHE DOES NOT TAKE HER MEDICATIONS EVERYDAY
--- NOTE | 2023-10-08 08:09 | PC.NURSE ---
HOTLINE REPORT MADE. Confirmation Number: [id number].
--- NOTE | 2023-10-08 08:31 | CT_ITS ---
WS: [id number] CTA scan of the chest with IV contrast. Additional two-dimensional coronal and sagittal reconstructio n and MIP images was performed. 10/08/2023 Clinical Data: hypoxia/tachycardia Comparison: Portable chest, 10/08/2023 DLP: 309.[address] scans at [facility] use at least one of these dose optimization techniques: automated e xposure control; mA and/or kV adjustment per patient size (includes targeted exams where dose is matc hed to clinical indication); or iterative reconstruction. Findings: The peripheral pulmonary arteries show multiple small intraluminal filling defects consistent with pu lmonary embolic disease. The central pulmonary arteries fill normally. No nodules, masses or effusions are seen. The heart size is normal with no pericardial effusion. The thoracic aorta shows calcification in the wall. There is no axillary or significant mediastinal adeno nadira. The thyroid gland shows calcifications in both lobes. The trachea bifurcates into the bronchi. The bony thorax shows degenerative change of the thoracic vertebral bodies. The upper abdomen shows a normal liver, spleen, pancreas and adrenal glands. There are clips in the g allbladder fossa from a cholecystectomy. The left kidney is atrophic. Impression: 1. 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 2. Atrophic left kidney.
--- NOTE | 2023-10-08 08:44 | CT_ITS ---
WS: [id number] CT of the lumbar spine, additional two-dimensional coronal and sagittal imaging was obtained. 023 Clinical Data: back pain Comparison: Lumbar spine, 10/08/2023, CT lumbar spine, 07/10/2023. DLP: 679.[address] scans at [facility] use at least one of these dose optimization techniques: automated e xposure control; mA and/or kV adjustment per patient size (includes targeted exams where dose is matc hed to clinical indication); or iterative reconstruction. Findings: There is sclerotic change at the T12, L1 and L2 vertebral bodies. There are irregularities of the inferior cortical margins of L1 and L2 which may represent chronic fractures and are not typic al of acute fractures. No definite acute fracture is seen. There is degenerative disc narrowing at l evel T12-L. There is degenerative disc air at L4-L5 and L5-S1. There is facet joint arthritis at L4-L 5 and L5-S1. The transverse processes and SI joints show only minimal sclerosis of the SI joints. The re is calcification of the wall of the abdominal aorta but no aneurysm Impression: 1. Sclerotic change of T12, L1 and L2 probably from osteoarthritis. 2. Irregularity of the inferior cortical margins of L1 and L2 which are probably chronic and not typi javi of acute fractures. 3. Negative for definite acute compression fractures. 4. Degenerative disc change at multiple levels. 5. Facet joint arthritis at L4-L5 and L5-S1.
[2023-10-08] MEDS: atenolol 50 mg Tablet 100 MG PO (08:45)
[2023-10-08] MEDS: iohexol 350 mg/mL 500 mL Btl (per mL) IV (09:53)
[2023-10-08] MEDS: sodium chloride 0.9% 500 ML 999 ML IV (11:10)
--- NOTE | 2023-10-08 13:51 | P.HP_ITS ---
Providers/Chief Complaint 2 Admitting Physician: Valdez Gonsalves MD Primary Care Provider: Betty Sanchez Chief Complaint: failure to thrive History of Present Illness Cynthia Taveras is a 83 year old female presenting to the emergency department from home. Most of my history is from the emergency department physician. Apparently, in July she had fallen and sustained a compression fracture to her back. She has been having chronic pain since that time, and becoming less and less mobile. She has spent quite a bit of time in bed lately, and there is concern she may not be taking her medication appropriately. She may have fallen lately in the last several days. She has not been eating or drinking well. On arrival to the emergency department, blood pressure was significantly elevated. Oral medication was given as well as some Ultram for pain. When I evaluated the patient blood pressure was borderline low, she was lethargic, and had slurred speech. I discussed this with the emergency department physician and some IV fluid was ordered to bring the blood pressure back up, and close monitoring of the patient. No family member was at bedside to help me with other history. I attempted to reach contact numbers in chart, but no answer was obtained. When interviewed again on the floor she seemed somewhat dazed, perhaps confused but speech was much improved. She was moving all of her extremities. She did not complain of any pain. Review of Systems 2 General: Reports: ROS unobtainable due to medical condition Medications/Allergies Home Medications Medication Instructions Recorded Confirmed Last Taken Type multivitamin 1 tab PO QAM 09/12/21 10/08/23 09/22/23 History insulin glargine 100 unit/mL (3 50 unit (0.5 mL) SUBCUT QAM 90 09/27/21 10/08/23 09/22/23 Rx mL) subcutaneous pen (Lantus days #45 mL Solostar U-100 Insulin) blood sugar diagnostic (Blood #100 ea 10/14/21 10/08/23 Unknown Rx Glucose Test strips) blood-glucose meter (Blood Glucose #1 ea 10/14/21 10/08/23 Unknown Rx Monitoring kit) lancets 33 gauge (TRUEplus Lancets) #300 ea 04/29/22 10/08/23 Unknown Rx alendronate 70 mg tablet 70 mg PO Q7D 10/06/22 10/08/23 3 Weeks Ago History ~07/10/23 amlodipine 10 mg tablet 10 mg PO QAM 10/06/22 10/08/23 09/22/23 History atenolol 100 mg tablet 100 mg PO QAM 10/06/22 10/08/23 09/22/23 History clonidine HCl 0.2 mg tablet 0.2 mg PO BID 10/06/22 10/08/23 09/22/23 History clopidogrel 75 mg tablet 75 mg PO QAM 10/06/22 10/08/23 09/22/23 History fluoxetine 40 mg capsule 40 mg PO QAM 10/06/22 10/08/23 09/22/23 History furosemide 20 mg tablet 20 mg PO QAM 10/06/22 10/08/23 09/22/23 History lovastatin 40 mg tablet 40 mg PO QAM 10/06/22 10/08/23 09/22/23 History omeprazole 20 mg capsule,delayed 20 mg PO BID 10/06/22 10/08/23 09/22/23 History release trazodone 50 mg tablet 50 mg PO QPM 10/06/22 10/08/23 09/21/23 History benazepril 20 mg tablet 20 mg PO QAM 07/31/23 10/08/23 09/22/23 History potassium chloride 20 mEq 20 meq PO QAM 07/31/23 10/08/23 09/22/23 History tablet,extended release tramadol 50 mg tablet 50 mg PO Q8H PRN pain #14 tabs 08/21/23 10/08/23 10/07/23 Rx aspirin 81 mg tablet,delayed 81 mg PO DAILY 10/08/23 10/08/23 Unknown History release Allergies Allergy/AdvReac Type Severity Reaction Status Date / Time No Known Allergies Allergy Verified 10/08/23 06:51 PFSH Acute 2 PFSH: Medical History (Updated 10/08/23 @ 14:15 by Valdez Gonsalves MD) GERD (gastroesophageal reflux disease) Wound, open, elbow Painful orthopaedic hardware Acute lacunar stroke Dyslipidemia Diabetes Hypertension History of CVA (cerebrovascular accident) TIA (transient ischemic attack) Social History Smoking and tobacco/nicotine status: former use of tobacco/nicotine Second hand smoke exposure: No Alcohol intake: never Substance/Drug Use: never Lives independently: No Household members: friend(s) Marital status: Single service: No Current occupational status: disabled Current gender identity: Female Special brian needs: No Agree to transfusion: Yes Vitals/I&O/Wt Last Vital Signs Temp 98 F 10/08/23 06:43 Pulse 67 10/08/23 12:05 Resp 18 10/08/23 12:05 BP 117/71 10/08/23 12:05 Pulse Ox 95 10/08/23 12:05 O2 Del Method Room Air 10/08/23 12:05 Weight last 48 hrs Weight 68.039 kg Physical Exam 2 Narrative: General exam is a white female, who opens eyes and responds. Speech is slurred but she has no focal weakness. Neurologic: No facial droop, or extremity weakness. Speech is somewhat slurred. She appears somewhat confused. HEENT: Pupils equally round. Oropharynx clear but mucous membranes dry Neck is supple no lymphadenopathy or thyromegaly Cardiovascular regular rate and rhythm, no murmur Lungs clear no wheezing or crackles Abdomen is soft, positive bowel sounds. No obvious organomegaly exams deferred Extremities no cyanosis clubbing or edema, cap refill brisk Skin no rash Data 10/08/23 07:02 10/08/23 07:02 Other Labs: Albumin is 2.7. Calcium 8.9. LFTs normal with exception of alk phos of 113. Urinalysis is ordered Lumbar spine CT demonstrates some arthritic disease, no evidence of acute fracture Chest CTA demonstrating bilateral pulmonary emboli, small central and peripheral Lumbar x-ray reviewed, question compression fractures Chest x-ray reviewed no infiltrate Previous echocardiogram August 2021 demonstrated preserved EF, 1/4 diastolic dysfunction A&P Assessment and plan (1) Pulmonary embolism: On CTA, peripheral pulmonary arteries showed multiple small intraluminal filling defects. Oxygen as needed Fully anticoagulate with Lovenox 1 mg/kg subcutaneous every 12 hours (2) Acute encephalopathy: Patient had a neurologic change in the emergency department that appears to be resolving Obtain CT head This is a consistent with acute metabolic encephalopathy. It is likely secondary to the tramadol that she had but she did also have significant lowering of blood pressure in a quick fashion. IV fluids were also given to counteract this. Hold any further blood pressure medication today Likely restart the patient's lisinopril tomorrow. Metoprolol 25 mg twice daily. 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 No significant fracture Check urinalysis Plan General debility. Consider physical therapy initiation tomorrow after treatment initiation of pulmonary emboli today. Markedly elevated blood pressure on admission. This had rapidly improved. Hold any further blood pressure medication today. Continue IV fluids at a low rate Multiple other medical problems as outlined in past medical history Full code currently. Will need to clarify with patient and family Lovenox will suffice for DVT prophylaxis Attestations 2 Medical Necessity Statement*: Will need greater than 2 midnight stay for evaluation and treatment of pulmonary emboli Diagnoses Pulmonary embolism I26.99 Acute encephalopathy G93.40 Hypokalemia E87.6 Leukocytosis D72.829 Type 2 diabetes mellitus with hyperglycemia, with long-term current use of insulin E11.65; Z79.4 Diabetes mellitus type: type 2 Diabetes mellitus termite control service representative insulin use: with chcf use Diabetes mellitus complication status: with hyperglycemia Back pain M54.9 Time Spent (min) 61
--- NOTE | 2023-10-08 14:10 | CTR_ITS ---
PROCEDURE INFORMATION: Exam: CT Head Without Contrast Exam date and time: 10/08/2023 6:27 PM Age: 83 years old Clinical indication: Altered mental status/memory loss and speech disturbance; Confusion or disorientation; Patient HX: Lethargy with slurred speech and confusion. History of TIA. TECHNIQUE: Imaging protocol: Computed tomography of the head without contrast. Radiation optimization: All CT scans at this facility use at least one of these dose optimization techniques: automated exposure control; mA and/or kV adjustment per patient size (includes targeted exams where dose is matched to clinical indication); or iterative reconstruction. REPORTING DATA: Count of CT and Cardiac NM exams in prior 12 months: This patient has received [address] and 0 known cardiac nuclear medicine studies in the 12 months prior to the current study. COMPARISON: CT head wo con* [id number] 09/22/2023 12:02 PM RADIATION DOSE METRICS: Total DLP (mGy-cm): 984.78 FINDINGS: Brain: Subcortical and periventricular white matter changes consistent with small-vessel ischemic disease in the appropriate clinical setting. Small-vessel ischemic disease. Old lacunar infarcts left basal ganglia and right thalamus redemonstrated. No acute intracranial abnormality. Cerebral ventricles: No ventriculomegaly. Paranasal sinuses: Visualized sinuses are unremarkable. No fluid levels. Mastoid air cells: Visualized mastoid air cells are well aerated. Bones/joints: Unremarkable. No acute fracture. Soft tissues: Unremarkable. CT/CT head wo con* [id number] IMPRESSION: 1. No acute intracranial abnormality. 2. Small-vessel ischemic disease. 3. Old lacunar infarcts left basal ganglia and right thalamus redemonstrated.
--- NOTE | 2023-10-08 14:13 | USCV_ITS ---
Cynthia Taveras Age: 83 Gender: F : 1940 Exam Date: 10/08/2023 14:57 Ordering Phys: Valdez Gonsalves MD Technologist: Dwight Camara [place]am Location[place] [facility] [place] Indication: chest pain sob BP: 124 / 73 HR: 66 Rhythm: Sinus Technical Quality: Suboptimal MEASUREMENTS (Male / Female) Normal Values 2D ECHO LV Diastolic Diameter PLAX 3.8 cm 4.2 - 5.9 / 3.9 - 5.3 cm LV Systolic Diameter PLAX 2.6 cm IVS Diastolic Thickness 1.3 cm 0.6 - 1.0 / 0.6 - 0.9 cm IVS Systolic Thickness 1.7 cm LVPW Diastolic Thickness 1.5 cm 0.6 - 1.0 / 0.6 - 0.9 cm LVPW Systolic Thickness 1.7 cm LVOT Diameter 2.0 cm LV Ejection Fraction 2D Teich 58.7 % LV Ejection Fraction MOD 2C 54.7 % LV Ejection Fraction 2C AL 54.6 % LA Diameter 3.6 cm M-MODE Aortic Annulus Diameter 3.7 cm LA Ao Ratio MM 1.0 MV E Point Septal Separation 1.7 cm DOPPLER AV Peak Velocity 145.0 cm/s LVOT Peak Velocity 80.0 cm/s AV Area Cont Eq vti 1.8 cm squared AV Area Cont Eq pk 1.8 cm squared MV Area PHT 4.0 cm squared Mitral E to A Ratio 0.7 MV E' Velocity 35.0 cm/s Mitral E to MV E' Ratio 14.4 Mitral E to LV E' Lateral Ratio 11.8 Mitral E to LV E' Septal Ratio 18.6 TR Peak Velocity 156.3 cm/s TR Peak Gradient 9.8 mmHg Right Atrial Pressure 3.0 mmHg Pulmonary Artery Systolic Pressu 12.8 mmHg RV Acceleration Time 0.1 s FINDINGS Left Ventricle Normal left ventricular size, systolic function and wall thickness, with no regional wall motion abnormalities. Grade I/IV diastolic dysfunction (abnormal relaxation filling pattern), normal to mildly elevated filling pressures. Left ventricular ejection fraction is estimated at 55 %. Right Ventricle Normal right ventricular size and systolic function. Normal right ventricular systolic pressure. Right Atrium The right atrium is normal in size. Left Atrium The left atrium is normal in size. Mitral Valve Structurally normal mitral valve without significant stenosis or prolapse. There is no mitral regurgitation. Aortic Valve Structurally normal trileaflet aortic valve. Mild aortic valve calcification. No aortic valve regurgitation. Aortic valve sclerosis without stenosis. Tricuspid Valve Structurally normal tricuspid valve. Trace tricuspid valve regurgitation. Pulmonic Valve Pulmonic valve not well visualized. Pericardium Normal pericardium without effusion. Aorta Normal ascending aorta dimension. IVC The inferior vena cava appears normal. CONCLUSIONS Normal left ventricular size, systolic function and wall thickness, with no regional wall motion abnormalities. Grade I/IV diastolic dysfunction (abnormal relaxation filling pattern), normal to mildly elevated filling pressures. Left ventricular ejection fraction is estimated at 55 %. No change from 09/03/2021 Dr. Mathew Cain MD (Electronically Signed) Final Date: 09 October 2023 07:27 S
--- NOTE | 2023-10-08 14:41 | PC.NURSE ---
Patient seems to answer questions at times but then seems to be confused at times as well. Patient answered immediately she was in hospital and the year 2022. Later she knew she was at the hospital but not where and stated it was 2020.
--- NOTE | 2023-10-08 14:44 | PC.NURSE ---
See previous note about confusion.
--- NOTE | 2023-10-08 14:50 | PC.NURSE ---
patient goes into a stare when ask the questions and will not give answers
[2023-10-08] MEDS: enoxaparin 80 mg/0.8 mL Syringe 70 MG SUBCUT (14:51)
--- NOTE | 2023-10-08 14:55 | PC.NURSE ---
Patient thinks she has had Pneumonia shot in last five years and has had two flu shots this year per patient. Not sure of covid shots
[2023-10-08 15:05] LABS: Magnesium 1.9 mg/dL (1.7-2.3); Thyroid Stimulating Hormone 1.13 uIU/mL (0.27-4.20); Vitamin B12 754 pg/mL (232-1245)
[2023-10-08] MEDS: sodium chloride 0.9% 1,000 ML 50 ML IV (15:08)
[2023-10-08] MEDS: potassium chloride ER 20 mEq Tablet 40 MEQ PO (15:08)
[2023-10-08 16:57] LABS: Glucose Point of Care 227 mg/dL (70-110)
[2023-10-08] MEDS: insulin lispro 100 unit/1 mL SUBCUT (18:18)
[2023-10-08 19:36] LABS: Add Urine Microscopic? YES; Bilirubin Urine 1+ (Negative); Blood Urine 2+ (Negative); Glucose Urine UA Norm (Normal); Ketones Urine Negative (Negative); Leukocyte Esterase Urine 2+ (Negative); Nitrate Urine Positive (Negative); Protein Urine 3+ (Negative); Specific Gravity, Urine 1.015 (1.005-1.030); Urine Appearance Cloudy (CLEAR); Urine Color Dark Yellow (Yellow); Urobilinogen Urine 1 mg/dL (Negative); pH Urine 5 (5-7)
[2023-10-08 19:39] LABS: Bacteria Urine 3+ /hpf; Mucus Urine 2+ /hpf; Squamous Epithelial Cell Urine 0-4 /hpf (0-5); Transitional Epi Cells Urine 0-4 /hpf; WBC Urine TOO NUMEROUS TO CNT /hpf (0-5)
[2023-10-08 19:40] LABS: Add Urine Culture? Yes; Amorphous Sediment Urine TRACE /hpf; Fine Granular Casts Urine 0-4 /lpf
[2023-10-08] MEDS: cefTRIAXone 1,000 MG in sodium chloride 0.9% (plus) 50 ML 100 MG IV (21:10)
--- NOTE | 2023-10-08 21:11 | PC.NURSE ---
Patient had a urinalysis and a CT. Passed to cage shift manager nurse to Call Dr. Gonsalves to let him know when they are completed. He wants to be called.
[2023-10-08 21:33] LABS: Glucose Point of Care 91 mg/dL (70-110)
[2023-10-09] VITALS (9 sets, daily range): BP systolic 129–147; BP diastolic 70–73; PULSE 63–88; RESP 16–19; TEMP 36.4–36.8; O2SAT 92–97
[2023-10-09] MEDS: enoxaparin 80 mg/0.8 mL Syringe 70 MG SUBCUT (03:07)
[2023-10-09 05:18] LABS: Basophils # 0.1 10^3/uL (0.0-0.1); Basophils % 0.8 %; Eosinophils # 0.3 10^3/uL (0.0-0.8); Eosinophils % 2.2 %; Lymphocytes # 2.2 10^3/uL (0.8-4.8); Lymphocytes % 19.1 %; Mean Corpuscular HGB Conc 29.1 g/dL (30-55); Mean Corpuscular Hemoglobin 25.4 pg (27-33); Mean Corpuscular Volume 87.1 fl (85-98); Mean Platelet Volume 11.9 fL (7.4-10.4); Monocytes # 1.1 10^3/uL (0.2-0.9); Monocytes % 9.2 %; Neutrophils # 7.95 10^3/uL (1.8-7.7); Neutrophils % 68.1 %; Nucleated Red Blood Cells % 0 %; Platelet Count 452 10^3/cmm (157-399); Red Blood Count 4.02 10^6/uL (3.85-5.65); Red Cell Distribution Width 13.5 % (12.1-15.1); White Blood Count 11.68 10^3/uL (3.29-11.43)
[2023-10-09] MEDS: atorvastatin 40 mg Tablet 20 MG PO (05:42)
[2023-10-09] MEDS: lisinopril 20 mg Tablet PO (05:42)
[2023-10-09] MEDS: fluoxetine 20 mg Capsule 40 MG PO (05:42)
[2023-10-09] MEDS: clopidogrel 75 mg Tablet PO (05:42)
[2023-10-09 05:47] LABS: Alanine Aminotransferase 10 U/L (0-33); Albumin Level 2.5 g/dL (3.5-5.2); Alkaline Phosphatase 90 U/L (35-105); Anion Gap 15.2 (5-19); Aspartate Amino Transferase 23 U/L (0-32); Blood Urea Nitrogen 31 mg/dL (8-23); Calcium 8.7 mg/dL (8.5-10.5); Carbon Dioxide 25 mmol/L (22-29); Chloride 106 mmol/L (98-107); Globulin 2.3 g/dL (1.3-4.6); Glucose 97 mg/dL (65-115); Osmolality Calculated 300 mOsm/kg (285-295); Potassium 4.2 mmol/L (3.5-5.1); Sodium 142 mmol/L (136-145); Total Bilirubin 0.2 mg/dL (0.15-1.2); Total Protein 4.8 g/dL (6.6-8.7)
[2023-10-09 06:35] LABS: Glucose Point of Care 123 mg/dL (70-110)
[2023-10-09] MEDS: metoprolol tartrate 25 mg Tablet PO ×2 (08:15→20:21)
[2023-10-09] MEDS: pantoprazole DR 40 mg Tablet PO (08:15)
--- NOTE | 2023-10-09 08:48 | P.PN_ITS ---
Documented by User: [email or web address] Tang 10/09/23 09:04 Subjective 2 Subjective: Patient was evaluated this morning while lying in bed on 2L/NC. Patient still remains somewhat confused though she states that she feels much better. She is able to state her name and date of at this time but unable to state current year or place she is in. She denies any abdominal pain, shortness of breath, chest pain, or fevers. She is eating breakfast at this time and states that she is tolerating diet well. Muñoz catheter remains in place and patient is tolerating well. Medications: Reviewed: Yes Vitals/I&O/Wt Last Vital Signs Temp 98.2 F 10/09/23 08:00 Pulse 66 10/09/23 08:00 Resp 18 10/09/23 08:00 BP 141/73 10/09/23 08:00 Pulse Ox 96 10/09/23 08:00 O2 Del Method Nasal Cannula 10/09/23 08:00 O2 Flow Rate 2 10/09/23 08:00 10/08/23 10/09/23 10/09/23 22:59 06:59 14:59 Intake Total 806 / 806 240 / 1046 Output Total 200 / 200 Balance 806 / 806 40 / 846 Weight last 48 hrs Weight 64.467 kg Weight 64.467 kg Weight 68.039 kg Physical Exam 2 Narrative: General: Alert, slightly disoriented to current year and place. Able to answer questions appropriately. Neurologic: No facial droop, or extremity weakness. She appears somewhat confused. HEENT: Pupils equally round. Oropharynx clear. Moist mucous membrane. Neck is supple no lymphadenopathy or thyromegaly Cardiovascular regular rate and rhythm, no murmur Lungs clear no wheezing or crackles Abdomen is soft, positive bowel sounds. No obvious organomegaly : Muñoz cath in place. Extremities no cyanosis clubbing or edema, cap refill brisk Skin no rash Urinary Catheter Management: Muñoz: Cath Placed During This Visit: yes Reason for Continuing Indwelling Catheter: Other Urinary Catheter Date of Insertion: 10/08/23 Urinary Catheter Time of Insertion: 18:00 Data 10/09/23 04:29 10/09/23 04:29 Other Labs: WBC 11.68, hemoglobin 10.2, platelet 452, BUN 31, creatinine 1.5 Urinalysis: 2+ blood, positive nitrate, 2+ leukocyte Estrace, too numerous WBC, 3+ bacteria. A&P Assessment and plan (1) Pulmonary embolism: Continue to monitor Oxygen as needed Anticoagulate with Lovenox 70 mg subcu twice daily (2) UTI (urinary tract infection): Urinalysis revealed urinary tract infection. Patient placed on Rocephin 1 g daily Increase IV maintenance fluids NS 100 mL/h. (3) Acute encephalopathy: Head CT revealed no acute intracranial abnormalities. 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 Possibly due to #2, urinary tract infection, which was revealed on urinalysis. We will continue to monitor patient's neurological status with every 4 hours neurochecks per nursing. Restart lisinopril (4) Hypokalemia: Supplement potassium Stable Potassium 4.2 this a.m. (5) Leukocytosis: WBC trending down, 11.68 this a.m. Likely due to urinary tract infection. 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 X-ray suggested compression fracture some arthritic disease noted on CT scan. No complaints of back pain today on physical exam. PT/OT eval and treat. Plan Plan as stated above. Patient was placed on Rocephin for revealed urinary tract infection. We will increase her fluids to normal saline 100 mL/h. Will continue anticoagulation therapy with Lovenox due to PE. We will continue to monitor encephalopathic symptoms as these seem to be improving. Blood pressure continues to improve and we will restart her lisinopril this a.m. 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 Patient still remains somewhat confused though she states that she feels much better. She is able to state her name and date of at this time but unable to state current year or place she is in. She denies any abdominal pain, shortness of breath, chest pain, or fevers. She is eating breakfast at this time and states that she is tolerating diet well. Muñoz catheter remains in place and patient is tolerating well. I confirmed with her son yesterday, that she has some baseline memory difficulties. Physical Exam 2 Urinary Catheter Management: Muñoz: Cath Placed During This Visit: yes Data 10/09/23 04:29 10/09/23 04:29 A&P Assessment and plan (1) Pulmonary embolism: Continue to monitor Oxygen as needed Change Lovenox to Eliquis (2) UTI (urinary tract infection): (3) Acute encephalopathy: Head CT revealed no acute intracranial abnormalities. 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 Possibly due to #2, urinary tract infection, which was revealed on urinalysis. We will continue to monitor patient's neurological status with every 4 hours neurochecks per nursing. Restart lisinopril as blood pressure better (4) Hypokalemia: Potassium normal today (5) Leukocytosis: (6) Diabetes: Qualifiers: Diabetes mellitus complication status: with hyperglycemia Diabetes mellitus custodial insulin use: with custodial use Diabetes mellitus type: type 2 Qualified Code(s): E11.65 - Type 2 diabetes mellitus with hyperglycemia; Z79.4 - jail (current) use of insulin (7) Back pain: Plan Acute kidney injury superimposed on likely chronic kidney disease. Increase fluids slightly. Recheck BMP tomorrow. Global weakness. Initiate PT and OT Plan as stated above. Patient was placed on Rocephin for revealed urinary tract infection. We will increase her fluids to normal saline 100 mL/h. Will continue anticoagulation therapy with Lovenox due to PE. We will continue to monitor encephalopathic symptoms as these seem to be improving. Blood pressure continues to improve and we will restart her lisinopril this a.m. CODE STATUS: Full code DVT prophylaxis: Lovenox PPI prophylaxis: Protonix Attestations 2 Medical Necessity Statement*: Needs continued hospitalization for treatment of UTI with IV antibiotics, close monitoring secondary to recent pulmonary emboli Diagnoses Pulmonary embolism I26.99 UTI (urinary tract infection) N39.0 Acute encephalopathy G93.40 Hypokalemia E87.6 Leukocytosis D72.829 Type 2 diabetes mellitus with hyperglycemia, with long-term current use of insulin E11.65; Z79.4 Diabetes mellitus complication status: with hyperglycemia Diabetes mellitus custodial insulin use: with local intermodal truck driver use Diabetes mellitus type: type 2 Back pain M54.9 Time Spent (min) 25
--- NOTE | 2023-10-09 08:56 | PC.CHAP ---
Pastoral Care Encounter/Spiritual Assessment Type of Contact [] Declined protein chemist visit [] Patient/Family/Request visit [] Outpatient visit [] Follow-up visit [] Physician referral [] Code/Alert [x] Routine visit [] Staff referral [] Actively dying [] Patient sleeping [] Family support [] [] Out of room [] Palliative care [] [] Receiving care in room [] Pre-surgical visit [] Trauma [] Long length of stay [] ICU visit [] Other: Relational/Emotional Strength [x] Patient feels connected with others/family/visitors/staff [] Distress [] Loneliness/isolation [] Abandonment Spirituality of Patient [x] Person of Maia [] Attends Hinduism of their Maia [x] Believes in Prayer [] Reads Bible or Shinto materials [] There are Spiritual issues to be addressed Medical Scientific Liaison Interventions [x] Prayer [] Active listening [] Non-anxious presence [x] Spiritual/emotional support [] Crisis/trauma care [] Spiritual counseling [] Bereavement support [] Provided bereavement packet [] Provided Bible/devotional materials [] Provided toy/stuffed animal, coloring book to patient or family member [] Provided Communion [] Anointing/[place] [] Salvation [x] Completed spiritual assessment [] Other: Impact on Illness or Injury [] Angry [] Fearful [] Anxious [] Often cries [] Exhaustion [] Unable to work [] Unable to attend yazdanism [] Unable to walk/stand [] Unable to read [] Unable to drive [] Unable to eat/drink [] Unable to sleep [] Unable to be with family [] Patient intubated [] Other: Summary Time spent with patient 5 min
--- NOTE | 2023-10-09 10:46 | PC.SOCIAL ---
Pg 2 IMM Explained to pt Pg 2 IMM. No questions voiced. Provided pt a copy. Initialed, dated, & timed a copy & placed in chart.
[2023-10-09 11:49] LABS: Glucose Point of Care 184 mg/dL (70-110)
[2023-10-09] MEDS: sodium chloride 0.9% 1,000 ML 100 ML IV ×2 (11:54→22:05)
[2023-10-09] MEDS: insulin lispro 100 unit/1 mL SUBCUT ×2 (11:55→21:35)
[2023-10-09 17:04] LABS: Glucose Point of Care 124 mg/dL (70-110)
[2023-10-09] MEDS: apixaban 5 mg Tablet 10 MG PO (20:21)
[2023-10-09] MEDS: cefTRIAXone 1,000 MG in sodium chloride 0.9% (plus) 50 ML 100 MG IV (20:21)
[2023-10-09 20:26] LABS: Glucose Point of Care 281 mg/dL (70-110)
[2023-10-10] VITALS (9 sets, daily range): BP systolic 117–189; BP diastolic 66–95; PULSE 61–82; RESP 18–82; TEMP 36.4–36.9; O2SAT 90–96
--- NOTE | 2023-10-10 01:54 | PC.NURSE ---
pt was trying to climb out of bed staff got her up in a wheel chair and she is sitting at [facility] with staff
--- NOTE | 2023-10-10 02:09 | PC.NURSE ---
pt is at [facility] folding towels and wash clothes. pt stated she wanted something to do. pt trying to get out of wheel chair seems content at this time
--- NOTE | 2023-10-10 03:26 | PC.NURSE ---
at about 0300 Conchita Vigil and I put pt back in bed pt stated she was tired pt is currently resting in bed
[2023-10-10 05:33] LABS: Basophils # 0.1 10^3/uL (0.0-0.1); Basophils % 0.4 %; Eosinophils # 0.2 10^3/uL (0.0-0.8); Eosinophils % 1.8 %; Hematocrit 34.6 % (36-47); Lymphocytes # 1.1 10^3/uL (0.8-4.8); Lymphocytes % 9.1 %; Mean Corpuscular HGB Conc 29.5 g/dL (30-55); Mean Corpuscular Hemoglobin 25.3 pg (27-33); Mean Corpuscular Volume 85.9 fl (85-98); Mean Platelet Volume 11.7 fL (7.4-10.4); Monocytes # 1.2 10^3/uL (0.2-0.9); Monocytes % 10.2 %; Neutrophils # 9.01 10^3/uL (1.8-7.7); Neutrophils % 77.8 %; Nucleated Red Blood Cells % 0 %; Platelet Count 462 10^3/cmm (157-399); Red Blood Count 4.03 10^6/uL (3.85-5.65); Red Cell Distribution Width 13.6 % (12.1-15.1); White Blood Count 11.59 10^3/uL (3.29-11.43)
[2023-10-10] MEDS: fluoxetine 20 mg Capsule 40 MG PO (06:02)
[2023-10-10] MEDS: atorvastatin 40 mg Tablet 20 MG PO (06:02)
[2023-10-10] MEDS: clopidogrel 75 mg Tablet PO (06:02)
[2023-10-10] MEDS: lisinopril 20 mg Tablet PO (06:02)
[2023-10-10 06:30] LABS: Glucose Point of Care 175 mg/dL (70-110)
[2023-10-10] MEDS: apixaban 5 mg Tablet 10 MG PO ×2 (08:56→19:47)
[2023-10-10] MEDS: metoprolol tartrate 25 mg Tablet PO ×2 (08:56→19:47)
[2023-10-10] MEDS: pantoprazole DR 40 mg Tablet PO (08:56)
[2023-10-10] MEDS: insulin lispro 100 unit/1 mL SUBCUT ×3 (08:56→22:09)
[2023-10-10 16:42] LABS: Anion Gap 16.6 (5-19); Blood Urea Nitrogen 25 mg/dL (8-23); Calcium 8.6 mg/dL (8.5-10.5); Carbon Dioxide 23 mmol/L (22-29); Chloride 105 mmol/L (98-107); Glucose 167 mg/dL (65-115); Osmolality Calculated 300 mOsm/kg (285-295); Potassium 3.6 mmol/L (3.5-5.1); Sodium 141 mmol/L (136-145)
[2023-10-10 17:19] LABS: Glucose Point of Care 210 mg/dL (70-110)
[2023-10-10 21:11] LABS: Glucose Point of Care 224 mg/dL (70-110)
--- NOTE | 2023-10-10 23:01 | PM.PN ---
Subjective Subjective: no acute interim events. Remains pleasantly confused. Does not cooperate with keeping Oxygen on. Saturating well currently on RA Medications: Reviewed: Yes Vitals/I&O/Wt Last Vital Signs Temp 98.0 F 10/10/23 20:00 Pulse 76 10/10/23 20:00 Resp 18 10/10/23 20:00 BP 171/73 10/10/23 20:00 Pulse Ox 94 10/10/23 21:16 O2 Del Method Room Air 10/10/23 21:16 O2 Flow Rate 2 10/09/23 20:00 10/10/23 10/10/23 10/11/23 14:59 22:59 06:59 Intake Total 600 / 600 120 / 720 Balance 600 / 600 120 / 720 Weight last 48 hrs Weight 63.503 kg Weight 64.467 kg Physical Exam Narrative: General: No acute distress, AO x1-2 HEENT: PERRLA, pupils bilaterally equal and reactive, pallors not present Chest: Normal vesicular breath sounds, no added sounds, equal good air entry bilaterally CVS: S1-S2 regular, no murmurs, no tachycardia, no gallops, no rubs Abdomen: Soft, nontender, no organomegaly, bowel sounds present Neuro: moves all extremities in bed , no facial deformity, AO x1-2 Urinary Catheter Management: Muñoz: Cath Placed During This Visit: yes, but has since been removed by the nurse Reason for Continuing Indwelling Catheter: Decision to DC Catheter Urinary Catheter Date of Insertion: 10/08/23 Urinary Catheter Time of Insertion: 18:00 Date Urinary Catheter Removed: 10/10/23 Time Urinary Catheter Discontinued: 16:33 Data 10/11/23 04:08 10/11/23 04:08 Micro: Microbiology 10/08/23 18:08 Urine Culture - Preliminary Urine,Clean Catch Gram Negative Rods A&P Assessment and plan (1) Pulmonary embolism: Continue to monitor Oxygen as needed Change Lovenox to Eliquis (2) UTI (urinary tract infection): Urinalysis revealed urinary tract infection. Patient placed on Rocephin 1 g daily (3) Acute encephalopathy: Head CT revealed no acute intracranial abnormalities. 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 Possibly due to #2, urinary tract infection, which was revealed on urinalysis. We will continue to monitor patient's neurological status with every 4 hours neurochecks per nursing. Restart lisinopril as blood pressure better (4) Hypokalemia: Potassium normal today (5) Leukocytosis: WBC trending down, 11.68 this a.m. Likely due to urinary tract infection. As per #2 (6) Diabetes: Sliding scale insulin Consistent carb diet Accu-Cheks ACHS Qualifiers: Diabetes mellitus complication status: with hyperglycemia Diabetes mellitus half-way insulin use: with half-way use Diabetes mellitus type: type 2 Qualified Code(s): E11.65 - Type 2 diabetes mellitus with hyperglycemia; Z79.4 - manager intermediate (current) use of insulin (7) Back pain: Possibly due to #2. X-ray suggested compression fracture some arthritic disease noted on CT scan. No complaints of back pain today on physical exam. PT/OT eval and treat. Plan Acute kidney injury superimposed on likely chronic kidney disease. Increase fluids slightly. Recheck BMP tomorrow. Global weakness. Initiate PT and OT Plan as stated above. Patient was placed on Rocephin for revealed urinary tract infection. We will increase her fluids to normal saline 100 mL/h. Will continue anticoagulation therapy with Lovenox due to PE. We will continue to monitor encephalopathic symptoms as these seem to be improving. Blood pressure continues to improve and we will restart her lisinopril this a.m. CODE STATUS: Full code DVT prophylaxis: Lovenox PPI prophylaxis: Protonix Plan for today: Disconitnue IV fluids. Patient does not cooperate with keeping oxyen on. Needs frequent reminders. BP is uncontrolled. She has pulled out iv lines. Will add po amlodipine for HTN. Titrae up lisinopril if cr remains stable tomorrow. Ongoing disposition planning Attestations Medical Necessity Statement*: uncontrolled BP, add medications, frequent re orientation, disposition planning Coding Level of Care Code Acute Code for g Fwd Diagnoses Pulmonary embolism I26.99 UTI (urinary tract infection) N39.0 Acute encephalopathy G93.40 Hypokalemia E87.6 Leukocytosis D72.829 Type 2 diabetes mellitus with hyperglycemia, with long-term current use of insulin E11.65; Z79.4 Diabetes mellitus complication status: with hyperglycemia Diabetes mellitus intermediate accountant insulin use: with intermediate accountant use Diabetes mellitus type: type 2 Back pain M54.9
[2023-10-11] VITALS (8 sets, daily range): BP systolic 164–181; BP diastolic 85–95; PULSE 62–89; RESP 14–19; TEMP 36.5–37.2; O2SAT 93–97
--- NOTE | 2023-10-11 04:31 | PC.NURSE ---
pt was moving while blood pressure was being taken and then became combative so could not retake.
[2023-10-11 05:03] LABS: Basophils # 0.1 10^3/uL (0.0-0.1); Basophils % 0.4 %; Eosinophils # 0.2 10^3/uL (0.0-0.8); Eosinophils % 1.9 %; Hematocrit 33.8 % (36-47); Lymphocytes # 1.6 10^3/uL (0.8-4.8); Lymphocytes % 13.3 %; Mean Corpuscular HGB Conc 30.5 g/dL (30-55); Mean Corpuscular Hemoglobin 25.5 pg (27-33); Mean Corpuscular Volume 83.7 fl (85-98); Mean Platelet Volume 11.7 fL (7.4-10.4); Monocytes # 1.3 10^3/uL (0.2-0.9); Monocytes % 11.4 %; Neutrophils # 8.43 10^3/uL (1.8-7.7); Neutrophils % 72.4 %; Nucleated Red Blood Cells % 0 %; Platelet Count 464 10^3/cmm (157-399); Red Blood Count 4.04 10^6/uL (3.85-5.65); Red Cell Distribution Width 13.6 % (12.1-15.1); White Blood Count 11.65 10^3/uL (3.29-11.43)
[2023-10-11] MEDS: atorvastatin 40 mg Tablet 20 MG PO (05:15)
[2023-10-11] MEDS: fluoxetine 20 mg Capsule 40 MG PO (05:15)
[2023-10-11] MEDS: clopidogrel 75 mg Tablet PO (05:16)
[2023-10-11] MEDS: lisinopril 20 mg Tablet PO (05:16)
[2023-10-11 05:24] LABS: Alanine Aminotransferase 9 U/L (0-33); Albumin Level 2.4 g/dL (3.5-5.2); Alkaline Phosphatase 76 U/L (35-105); Anion Gap 13.4 (5-19); Aspartate Amino Transferase 16 U/L (0-32); Blood Urea Nitrogen 16 mg/dL (8-23); Calcium 8.5 mg/dL (8.5-10.5); Carbon Dioxide 25 mmol/L (22-29); Chloride 107 mmol/L (98-107); Globulin 3.1 g/dL (1.3-4.6); Glucose 120 mg/dL (65-115); Osmolality Calculated 296 mOsm/kg (285-295); Potassium 3.4 mmol/L (3.5-5.1); Sodium 142 mmol/L (136-145); Total Bilirubin 0.3 mg/dL (0.15-1.2); Total Protein 5.5 g/dL (6.6-8.7)
--- NOTE | 2023-10-11 06:08 | PC.PHAR ---
RENAL DOSING FOR LEVAQUIN 750MG DAILY CHANGED TO EVERY OTHER DAY BASED ON PATIENTS CRCL OF 35 THANK YOU, MARY ALMANZA [facility]
[2023-10-11 06:31] LABS: Glucose Point of Care 145 mg/dL (70-110)
[2023-10-11] MEDS: insulin lispro 100 unit/1 mL SUBCUT ×2 (08:30→17:54)
[2023-10-11] MEDS: metoprolol tartrate 25 mg Tablet PO ×2 (08:31→20:43)
[2023-10-11] MEDS: pantoprazole DR 40 mg Tablet PO (08:31)
[2023-10-11] MEDS: apixaban 5 mg Tablet 10 MG PO ×2 (08:31→20:43)
[2023-10-11] MEDS: levoFLOXacin 750 mg Tablet PO (08:31)
[2023-10-11] MEDS: amlodipine 5 mg Tablet PO (08:31)
[2023-10-11 10:56] LABS: Glucose Point of Care 120 mg/dL (70-110)
--- NOTE | 2023-10-11 16:48 | P.PN_ITS ---
Subjective 2 Subjective: No new complaints. Keeping oxygen on today. Systolic blood pressure 1 60-1 70 today. Afebrile. Hemodynamically stable. Does not offer any new complaints today. Pleasantly confused. Medications: Reviewed: Yes Vitals/I&O/Wt Last Vital Signs Temp 97.7 F 10/11/23 16:00 Pulse 89 10/11/23 16:00 Resp 18 10/11/23 16:00 BP 169/90 10/11/23 16:00 Pulse Ox 93 10/11/23 11:38 O2 Del Method Nasal Cannula 10/11/23 11:38 O2 Flow Rate 2 10/09/23 20:00 10/11/23 10/11/23 10/11/23 06:59 14:59 22:59 Intake Total 360 / 360 Balance 360 / 360 Weight last 48 hrs Weight 66.31 kg Weight 63.503 kg Physical Exam 2 Narrative: General: No acute distress, AO x1-2 HEENT: PERRLA, pupils bilaterally equal and reactive, pallors not present Chest: Normal vesicular breath sounds, no added sounds, equal good air entry bilaterally CVS: S1-S2 regular, no murmurs, no tachycardia, no gallops, no rubs Abdomen: Soft, nontender, no organomegaly, bowel sounds present Neuro: moves all extremities in bed , no facial deformity, AO x1-2 Urinary Catheter Management: Muñoz: Cath Placed During This Visit: yes, but has since been removed by the nurse Reason for Continuing Indwelling Catheter: Decision to DC Catheter Urinary Catheter Date of Insertion: 10/08/23 Urinary Catheter Time of Insertion: 18:00 Date Urinary Catheter Removed: 10/10/23 Time Urinary Catheter Discontinued: 16:33 Data 10/11/23 04:08 10/11/23 04:08 Micro: Microbiology 10/08/23 18:08 Urine Culture - Final Urine,Clean Catch Escherichia coli A&P Assessment and plan (1) Pulmonary embolism: Continue to monitor Oxygen as needed Continue Eliquis. (2) UTI (urinary tract infection): Urinalysis revealed urinary tract infection. Urine culture with E. coli Adequately covered with Rocephin currently. (3) Acute encephalopathy: Head CT revealed no acute intracranial abnormalities. 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 Possibly due to #2, urinary tract infection, which was revealed on urinalysis. Currently improvement. She has dementia. Pleasantly confused today. (4) Hypokalemia: Potassium normal today (5) Leukocytosis: Resolved (6) Diabetes: Sliding scale insulin Consistent carb diet Accu-Cheks ACHS Qualifiers: Diabetes mellitus type: type 2 Diabetes mellitus sheetrock applicator insulin use: with care home use Diabetes mellitus complication status: with hyperglycemia Qualified Code(s): E11.65 - Type 2 diabetes mellitus with hyperglycemia; Z79.4 - structural worker (current) use of insulin (7) Back pain: Possibly due to #2. X-ray suggested compression fracture some arthritic disease noted on CT scan. No complaints of back pain today on physical exam. PT/OT eval and treat. Plan Acute kidney injury superimposed on likely chronic kidney disease. Creatinine remained stable off IV fluids. Global weakness. Initiate PT and OT CODE STATUS: Full code DVT prophylaxis: Eliquis. PPI prophylaxis: Protonix Disposition planning. Plan transition to SNF. Attestations 2 Medical Necessity Statement*: Appropriate disposition planning ongoing. Coding Level of Care Code Acute Code for [facility] Fwd Diagnoses Pulmonary embolism I26.99 UTI (urinary tract infection) N39.0 Acute encephalopathy G93.40 Hypokalemia E87.6 Leukocytosis D72.829 Type 2 diabetes mellitus with hyperglycemia, with long-term current use of insulin E11.65; Z79.4 Diabetes mellitus type: type 2 Diabetes mellitus sheetrock applicator insulin use: with care home use Diabetes mellitus complication status: with hyperglycemia Back pain M54.9
[2023-10-11 16:57] LABS: Glucose Point of Care 182 mg/dL (70-110)
[2023-10-11 20:57] LABS: Glucose Point of Care 103 mg/dL (70-110)
[2023-10-12 03:13] VITALS: BP 165/71; PULSE 81; RESP 14; TEMP 36.4; O2SAT 98
[2023-10-12] MEDS: lisinopril 20 mg Tablet 40 MG PO (05:12)
[2023-10-12] MEDS: fluoxetine 20 mg Capsule 40 MG PO (05:13)
[2023-10-12] MEDS: atorvastatin 40 mg Tablet 20 MG PO (05:13)
[2023-10-12] MEDS: clopidogrel 75 mg Tablet PO (05:13)
[2023-10-12 06:34] LABS: Glucose Point of Care 131 mg/dL (70-110)
[2023-10-12 07:32] VITALS: O2SAT 93
[2023-10-12 07:59] VITALS: BP 159/72; PULSE 78; RESP 16; TEMP 36.6; O2SAT 98
[2023-10-12] MEDS: metoprolol tartrate 25 mg Tablet PO (09:42)
[2023-10-12] MEDS: pantoprazole DR 40 mg Tablet PO (09:42)
[2023-10-12] MEDS: amlodipine 5 mg Tablet PO (09:42)
[2023-10-12] MEDS: apixaban 5 mg Tablet 10 MG PO (09:42)
[2023-10-12 09:50] LABS: Basophils # 0.1 10^3/uL (0.0-0.1); Basophils % 0.6 %; Eosinophils # 0.2 10^3/uL (0.0-0.8); Eosinophils % 1.9 %; Hematocrit 37.8 % (36-47); Lymphocytes # 1.2 10^3/uL (0.8-4.8); Lymphocytes % 12.3 %; Mean Corpuscular HGB Conc 29.6 g/dL (30-55); Mean Corpuscular Hemoglobin 25.1 pg (27-33); Mean Corpuscular Volume 84.8 fl (85-98); Mean Platelet Volume 11.4 fL (7.4-10.4); Monocytes # 0.8 10^3/uL (0.2-0.9); Monocytes % 8.8 %; Neutrophils # 7.13 10^3/uL (1.8-7.7); Neutrophils % 75.7 %; Nucleated Red Blood Cells % 0 %; Platelet Count 482 10^3/cmm (157-399); Red Blood Count 4.46 10^6/uL (3.85-5.65); Red Cell Distribution Width 13.7 % (12.1-15.1); White Blood Count 9.43 10^3/uL (3.29-11.43)
[2023-10-12 10:45] LABS: Alanine Aminotransferase 9 U/L (0-33); Albumin Level 2.6 g/dL (3.5-5.2); Alkaline Phosphatase 76 U/L (35-105); Anion Gap 11.9 (5-19); Aspartate Amino Transferase 17 U/L (0-32); Blood Urea Nitrogen 12 mg/dL (8-23); Calcium 8.7 mg/dL (8.5-10.5); Carbon Dioxide 26 mmol/L (22-29); Chloride 107 mmol/L (98-107); Globulin 3.3 g/dL (1.3-4.6); Glucose 185 mg/dL (65-115); Osmolality Calculated 297 mOsm/kg (285-295); Potassium 3.9 mmol/L (3.5-5.1); Sodium 141 mmol/L (136-145); Total Bilirubin 0.3 mg/dL (0.15-1.2); Total Protein 5.9 g/dL (6.6-8.7)
[2023-10-12 10:53] LABS: Glucose Point of Care 174 mg/dL (70-110)
[2023-10-12 11:16] VITALS: BP 185/77; PULSE 75; RESP 18; TEMP 36.6; O2SAT 96
[2023-10-12] MEDS: insulin lispro 100 unit/1 mL SUBCUT (11:50)
--- NOTE | 2023-10-12 12:22 | P.DS_ITS ---
Discharge Providers Date of Admission: 10/08/23 10:36 Date of Discharge: October 12, 2023 Attending Provider at Admission: Valdez Gonsalves MD Attending Provider at Discharge: Omari Conway MD Primary Care Provider: Betty Sanchez Diagnoses at Discharge Discharge Diagnosis (1) Pulmonary embolism: Status: Acute (2) UTI (urinary tract infection): Status: Resolved (3) Acute encephalopathy: Status: Resolved (4) Hypokalemia: Status: Resolved (5) Leukocytosis: Status: Resolved (6) Diabetes: Status: Acute Qualifiers: Diabetes mellitus complication status: with hyperglycemia Diabetes mellitus group home insulin use: with group home use Diabetes mellitus type: type 2 Qualified Code(s): E11.65 - Type 2 diabetes mellitus with hyperglycemia; Z79.4 - long-term (current) use of insulin (7) Back pain: Status: Resolved Reason for Visit Reason for Visit: failure to thrive Hospital Course Hospital Course Cynthia Taveras is a 83 year old female presenting to the emergency department from home. Most of my history is from the emergency department physician. Apparently, in July she had fallen and sustained a compression fracture to her back. She has been having chronic pain since that time, and becoming less and less mobile. She has spent quite a bit of time in bed lately, and there is concern she may not be taking her medication appropriately. She may have fallen lately in the last several days. She has not been eating or drinking well. On arrival to the emergency department, blood pressure was significantly elevated. Oral medication was given as well as some Ultram for pain. When I evaluated the patient blood pressure was borderline low, she was lethargic, and had slurred speech. I discussed this with the emergency department physician and some IV fluid was ordered to bring the blood pressure back up, and close monitoring of the patient. No family member was at bedside to help me with other history. I attempted to reach contact numbers in chart, but no answer was obtained. When interviewed again on the floor she seemed somewhat dazed, perhaps confused but speech was much improved. She was moving all of her extremities. She did not complain of any pain Patient was admitted to [facility] for pulmonary embolism, management anticoagulant therapy during her hospitalization, discharged on Eliquis, UTI during hospitalization urine culture showing E. coli, managed with Rocephin, completed antibiotic therapy as inpatient Acute encephalopathy likely secondary to UTI, CT of the head showed old lacunar infarcts, mentation at baseline on discharge, does have history of dementia, History of back pain, x-rays did show compression fractures, some arthritic disease, She did have EMMA during hospitalization, creatinine stable on discharge I reviewed patient's discharge, patient is on aspirin, Plavix and Eliquis, I spoke to half-way facility on 10/21/2023, I recommended that at least aspirin to be stopped as she is a high risk of bleeding being on multiple blood thinners. Currently she is hospitalized at [facility] for altered mental status and dehydration, when she comes back I would recommend at least aspirin to be stopped but she should remain on Eliquis, and they can continue either aspirin or Plavix depending on what the recommendations are from [facility]. If they have any questions I left my number for the house physician to give me a call Physical Exam Const: COMMON NORMALS: no acute distress ORIENTATION/CONSCIOUSNESS: Yes awake and Yes oriented to person; not oriented to place and not oriented to time Resp: COMMON NORMALS: normal respiratory effort, No retractions, No use of accessory muscles and clear to auscultation bilaterally AUSCULTATION: clear to auscultation bilaterally Cardio: COMMON NORMALS: regular rate, regular rhythm, S1 normal heart sound present and S2 normal heart sound present RATE: regular rate RHYTHM: regular rhythm HEART SOUNDS: S1 normal heart sound present and S2 normal heart sound present GI: COMMON NORMALS: Normal to inspection, nondistended, normoactive bowel sounds present and non-tender Extremity: COMMON NORMALS: no pedal edema Neuro: SENSORIUM/ORIENTATION: Yes oriented to person, No oriented to place and No oriented to time Urinary Catheter Management: Muñoz: Cath Placed During This Visit: yes, but has since been removed by the nurse Reason for Continuing Indwelling Catheter: Decision to DC Catheter Urinary Catheter Date of Insertion: 10/08/23 Urinary Catheter Time of Insertion: 18:00 Date Urinary Catheter Removed: 10/10/23 Time Urinary Catheter Discontinued: 16:33 Discharge Data Studies Completed and Pending Completed Studies During Hospitalization Category Date Time Status CT angio chest PE protcl [id number] Stat Cat Scan 10/08/23 08:[address] head wo con* [id number] Routine Cat Scan 10/08/23 14:[address] lumbar spine wo con* [id number] Stat Cat Scan 10/08/23 08:44 Completed XR chest 1V portable [id number] Stat Exams 10/08/23 06:46 Completed XR lumbar spine 2-3V* [id number] Stat Exams 10/08/23 07:11 Completed CV. echo complete* [id number] Routine Ultrasound 10/08/23 14:13 Completed Radiology Impressions Head CT 10/08/23 14:10 IMPRESSION: 1. No acute intracranial abnormality. 2. Small-vessel ischemic disease. 3. Old lacunar infarcts left basal ganglia and right thalamus redemonstrated. Laboratory Results WBC 9.43 10^3/uL (3.29-11.43) 10/12/23 09:40 RBC 4.46 10^6/uL (3.85-5.65) 10/12/23 09:40 Hgb 11.20 g/dL (11.27-16.99) L 10/12/23 09:40 Hct 37.8 % (36-47) 10/12/23 09:40 MCV 84.8 fl (85-98) L 10/12/23 09:40 MCH 25.1 pg (27-33) L 10/12/23 09:40 MCHC 29.6 g/dL (30-55) L 10/12/23 09:40 RDW 13.7 % (12.1-15.1) 10/12/23 09:40 Plt Count 482 10^3/cmm (157-399) H 10/12/23 09:40 MPV 11.4 fL (7.4-10.4) H 10/12/23 09:40 Neut % (Auto) 75.7 % 10/12/23 09:40 Lymph % (Auto) 12.3 % 10/12/23 09:40 [place] % (Auto) 8.8 % 10/12/23 09:40 Eos % (Auto) 1.9 % 10/12/23 09:40 Baso % (Auto) 0.6 % 10/12/23 09:40 Neut # (Auto) 7.13 10^3/uL (1.8-7.7) 10/12/23 09:40 Lymph # (Auto) 1.2 10^3/uL (0.8-4.8) 10/12/23 09:40 [place] # (Auto) 0.8 10^3/uL (0.2-0.9) 10/12/23 09:40 Eos # (Auto) 0.2 10^3/uL (0.0-0.8) 10/12/23 09:40 Baso # (Auto) 0.1 10^3/uL (0.0-0.1) 10/12/23 09:40 Nucleated RBC % (auto) 0 % 10/12/23 09:40 Nucleated RBCs # 0.0 /100WBC 10/12/23 09:40 Sodium 141 mmol/L (136-145) 10/12/23 09:40 Potassium 3.9 mmol/L (3.5-5.1) 10/12/23 09:40 Chloride 107 mmol/L (98-107) 10/12/23 09:40 Carbon Dioxide 26 mmol/L (22-29) 10/12/23 09:40 Anion Gap 11.9 (5-19) 10/12/23 09:40 BUN 12 mg/dL (8-23) 10/12/23 09:40 Creatinine 1.2 mg/dL (0.5-0.9) H 10/12/23 09:40 GFR Calculation Not Reportable 10/12/23 09:40 Glucose 185 mg/dL (65-115) H 10/12/23 09:40 POC Glucose 174 mg/dL (70-110) H 10/12/23 10:41 Calculated Osmolality 297 mOsm/kg (285-295) H 10/12/23 09:40 Calcium 8.7 mg/dL (8.5-10.5) 10/12/23 09:40 Magnesium 2.0 mg/dL (1.7-2.3) 10/09/23 04:29 Total Bilirubin 0.3 mg/dL (0.15-1.2) 10/12/23 09:40 AST 17 U/L (0-32) 10/12/23 09:40 ALT 9 U/L (0-33) 10/12/23 09:40 Alkaline Phosphatase 76 U/L (35-105) 10/12/23 09:40 Creatine Kinase 36 U/L (26-192) 10/08/23 07:02 Total Protein 5.9 g/dL (6.6-8.7) L 10/12/23 09:40 Albumin 2.6 g/dL (3.5-5.2) L 10/12/23 09:40 Globulin 3.3 g/dL (1.3-4.6) 10/12/23 09:40 Lipase 18 U/L (13-60) 10/08/23 07:02 Vitamin B12 754 pg/mL (232-1245) 10/08/23 07:02 TSH 1.13 uIU/mL (0.27-4.20) 10/08/23 07:02 Urine Color Dark yellow (Yellow) 10/08/23 18:08 Urine Appearance Cloudy (CLEAR) A 10/08/23 18:08 Urine pH 5 (5-7) 10/08/23 18:08 Ur Specific [place] 1.015 (1.005-1.030) 10/08/23 18:08 Urine Protein 3+ (Negative) H 10/08/23 18:08 Urine Glucose (UA) Norm (Normal) 10/08/23 18:08 Urine Ketones Negative (Negative) 10/08/23 18:08 Urine Blood 2+ (Negative) H 10/08/23 18:08 Urine Nitrate Positive (Negative) H 10/08/23 18:08 Urine Bilirubin 1+ (Negative) H 10/08/23 18:08 Urine Urobilinogen 1 mg/dL (Negative) H 10/08/23 18:08 Ur Leukocyte Esterase 2+ (Negative) H 10/08/23 18:08 Urine RBC 5-10 /hpf (0-2) H 10/08/23 18:08 Urine WBC Too numerous to cnt /hpf (0-5) H 10/08/23 18:08 Ur Squamous Epith Cells 0-4 /hpf (0-5) H 10/08/23 18:08 Ur Transition Epith Cell 0-4 /hpf 10/08/23 18:08 Amorphous Sediment Trace /hpf 10/08/23 18:08 Urine Bacteria 3+ /hpf (NONE) H 10/08/23 18:08 Fine Granular Casts 0-4 /lpf H 10/08/23 18:08 Urine Mucus 2+ /hpf 10/08/23 18:08 Serum Ketones Negative (Negative) 10/08/23 07:02 Vitals Last Vital Signs Temp 97.9 F 10/12/23 11:16 Pulse 75 10/12/23 11:16 Resp 18 10/12/23 11:16 BP 185/77 10/12/23 11:16 Pulse Ox 96 10/12/23 11:16 O2 Del Method Nasal Cannula 10/12/23 11:16 O2 Flow Rate 2 10/12/23 07:32 Discharge Plan Discharge Patient Disposition: Xfer SNF Condition: Stable Prescriptions: New Humalog U-100 Insulin 100 unit/mL Solution See Rx Instructions .ROUTE .COMPLEX Qty: 10 0RF Rx Instructions: Inject, subcut, 3 times daily, after meals, based on sliding scale provided metoprolol tartrate 25 mg Tablet 25 mg PO BID@0900,2100 30 Days Qty: 60 0RF Eliquis DVT-PE Treat 30D Start 5 mg (74 tabs) tablets,dose pack See Rx Instructions .ROUTE .COMPLEX Qty: 74 0RF Rx Instructions: orally per package directions Continued (DME) blood-glucose meter [Blood Glucose Monitoring] Kit See Rx Instructions .ROUTE .MEDSUPPLY Qty: 1 0RF Rx Instructions: As directed; pt to test 1 x day (DME) Blood Glucose Test Strip See Rx Instructions .ROUTE .MEDSUPPLY Qty: 100 4RF Rx Instructions: As directed (DME) lancets [TRUEplus Lancets] 33 gauge misc See Rx Instructions .ROUTE .COMPLEX Qty: 300 0RF Dose Instruction: TEST BLOOD SUGAR THREE TIMES DAILY DIRECTED AND NEEDED FOR HYPOGLYCEMIA Rx Instructions: TEST BLOOD SUGAR THREE TIMES DAILY DIRECTED AND NEEDED FOR HYPOGLYCEMIA multivitamin Tablet 1 tab PO QAM fluoxetine 40 mg capsule 40 mg PO QAM trazodone 50 mg tablet 50 mg PO QPM alendronate 70 mg tablet 70 mg PO Q7D Rx Instructions: ON WEDNESDAYS lovastatin 40 mg tablet 40 mg PO QAM clopidogrel 75 mg tablet 75 mg PO QAM amlodipine 10 mg tablet 10 mg PO QAM omeprazole 20 mg capsule,delayed release(DR/EC) 20 mg PO BID furosemide 20 mg tablet 20 mg PO QAM benazepril 20 mg tablet 20 mg PO QAM potassium chloride 20 mEq tablet extended release 20 meq PO QAM tramadol 50 mg tablet 50 mg PO Q8H PRN (Reason: pain) Qty: 14 0RF aspirin 81 mg Tablet,Delayed Release (Dr/Ec) 81 mg PO DAILY Changed clonidine HCl 0.2 mg tablet 0.1 mg PO BID 30 Days Qty: 30 0RF Lantus Solostar U-100 Insulin 100 unit/mL (3 mL) insulin pen 5 unit SUBCUT QAM 90 Days Qty: 45 0RF Discontinued atenolol 100 mg tablet 100 mg PO QAM Discharge Orders: Discharge Order (Routine); Ordered 10/12/23 Ordered By: Omari Conway Referrals: [facility] [Outside] Betty Sanchez FNP [Primary Care Provider] - 10/22/23 10:30 am Discharge Diet: As Directed Discharge Activity: Resume usual activity Patient Instructions: Type 2 Diabetes, Metoprolol (By mouth), Levofloxacin (By mouth) (Levaquin, Levaquin Leva-esthela), Insulin Lispro (By injection) (Humalog, Humalog Pen, Lispro-PFC,..., Apixaban (By mouth) (Eliquis), Pulmonary Embolism (DC), Urinary Tract Infection in Women (DC), Encephalopathy (DC), Opioid Safety Activity Restrictions/Additional Instructions: -inject humalog low dose sliding scale Discharge Attestations Time Spent in Discharge Care*: greater than 30 min Status at Discharge: Cognitive status at discharge: cognitively intact , Behavioral status at discharge: cooperative , Quality Metrics Clinical Quality Measures [ No reported AMI, CVA or VTE this stay] Coding Level of Care Code 75209 Total time (in minutes) for Discharge: 45 Diagnoses Pulmonary embolism I26.99 UTI (urinary tract infection) N39.0 Acute encephalopathy G93.40 Hypokalemia E87.6 Leukocytosis D72.829 Type 2 diabetes mellitus with hyperglycemia, with long-term current use of insulin E11.65; Z79.4 Diabetes mellitus complication status: with hyperglycemia Diabetes mellitus terminal operator insulin use: with terminal operator use Diabetes mellitus type: type 2 Back pain M54.9
--- NOTE | 2023-10-12 12:24 | PC.SOCIAL ---
IMM Update pg 2 of IMM updated and reviewed w/ patient. Copy provided and copy dated, initialed and placed in chart.
== END 2023-10-12 15:44 | disposition skilled nursing facility (03) | DRG 175 ==
LOC: ER 09:35 → ER IP 11:15 → MEDSURG 11:39
PROVIDERS: Student in an Organized Health Care Education/Training Program; Admitting Provider Internal Medicine; Emergency Provider Family Medicine; PCP Nurse Practitioner Family; Visit Provider Family Medicine
DX: I26.99 Other pulmonary embolism without acute cor pulmonale (principal); G93.41 Metabolic encephalopathy; M48.56XA Collapsed vertebra, not elsewhere classified, lumbar region, initial encounter for fracture; N39.0 Urinary tract infection, site not specified; N17.9 Acute kidney failure, unspecified; Z86.73 Personal history of transient ischemic attack (TIA), and cerebral infarction without residual deficits; E78.5 Hyperlipidemia, unspecified; E11.65 Type 2 diabetes mellitus with hyperglycemia; Z79.4 Long term (current) use of insulin; Z87.891 Personal history of nicotine dependence; G89.29 Other chronic pain; Z91.81 History of falling; K21.9 Gastro-esophageal reflux disease without esophagitis; F03.90 Unspecified dementia, unspecified severity, without behavioral disturbance, psychotic disturbance, mood disturbance, and anxiety; M47.816 Spondylosis without myelopathy or radiculopathy, lumbar region; E87.6 Hypokalemia; E11.22 Type 2 diabetes mellitus with diabetic chronic kidney disease; I12.9 Hypertensive chronic kidney disease with stage 1 through stage 4 chronic kidney disease, or unspecified chronic kidney disease; N18.9 Chronic kidney disease, unspecified
CPT/HCPCS: 36415; 36416; 51702; 70450; 71045; 71275; 72100; 72131; 80048; 80053; 81001; 82009; 82550; 82607; 82962; 83690; 83735; 84443; 85025; 87077; 87086; 87186; 93005; 93306; 96372; 97110; 97161; 97165; 97530; 99285; J0696; J1650; J1815; J7030; J7040; Q9967

== ENCOUNTER 2024-03-16 19:13 | Observation (INO) | payer MEDICARE, SELFPAY ==
[2024-03-16] VITALS (7 sets, daily range): BP systolic 179–216; BP diastolic 61–112; PULSE 71–104; RESP 15–25; TEMP 36.8–37.1; O2SAT 75–94; BMI 29.0; BMI 27.1
--- NOTE | 2024-03-16 19:22 | ECG_ITS ---
[facility] Test Date: 2024-03-16 Pat Name: Cynthia Taveras Department: Room: Gender: Female Sock Folder: : 1940 Requested By: Abhi Bhatt Order Number: [id number] Murphy MD: Asia Pedro M.D. Measurements Intervals [place] Rate: 71 P: 44 MT: 144 QRS: 20 QRSD: 98 T: 70 QT: 394 QTc: 429 Interpretive Statements SINUS RHYTHM NONSPECIFIC ST & T-WAVE ABNORMALITY Compared to ECG 10/08/2023 06:54:05 Sinus tachycardia no longer present Ventricular premature complex(es) no longer present T-wave abnormality still present Electronically Signed On 03-17-2024 0:11:14 CDT by Asia Pedro M.D. [email or web address]
--- NOTE | 2024-03-16 19:22 | XRR_ITS ---
PROCEDURE INFORMATION: Exam: XR Chest Exam date and time: 03/16/2024 7:39 PM Age: 83 years old Clinical indication: Dyspnea; Additional info: SOB TECHNIQUE: Imaging protocol: Radiologic exam of the chest. Views: 1 view. COMPARISON: No relevant prior studies available. FINDINGS: Lungs: The lungs are clear. Pleural spaces: Unremarkable. No pleural effusion. No pneumothorax. Heart/Mediastinum: Unremarkable. No cardiomegaly. Vasculature: The aortic arch is atherosclerotic. Bones/joints: Osteophytes in the thoracolumbar spine. XR/XR chest 1V portable [id number] IMPRESSION: No acute findings
[2024-03-16 19:39] LABS: ABG PCO2 42.7 mmHg (35-45); ABG PH Result 7.42 (7.35-7.45); Arterial Blood Gas Hematocrit 36.2 % (37-47); Base Excess ABG 3.1 mmol/L (-2.0-2.0); Blood Gas Allen Test Pos; Blood Gas Sample Site Brachial, right; Blood Gas Sample Type Arterial; Carboxyhemoglobin 0.8 %THgb (0.4-20.1); HCO3 ABG 27.9 mmol/L (22-26); HGB O2 Sat 92.4 % (95-100); Methemoglobin 0.6 % (0.4-1.5); Oxygen Device NC; PO2 ABG 66.3 mmHg (80.0-100.0); PO2 FiO2 Ratio Arterial Blood 0; Total Hemoglobin 11.8 g/dL (12-16)
--- NOTE | 2024-03-16 19:39 | ED_ITS ---
HPI - SOB/Dyspnea 2 General: Chief Complaint: Shortness of Breath/Dyspnea Stated Complaint: SOB Time Seen by Provider: 03/16/24 19:17 Source: patient Mode of arrival: ambulatory Limitations: no limitations History of Present Illness: HPI Narrative: 83-year-old female is here from residential he states she had increasing shortness of breath and rales she is typically not on oxygen was in the 80s and had to be placed on 2 L she is given a breathing treatment route states she had some slight improvement states she has had a cough over the last 2 days. Associated symptoms: Deny abdominal pain, chest pain, fever(s), nausea or vomiting Review of Systems 2 Const: Denies: fever(s), chills, body aches or change in appetite Eyes: Denies: blurry vision or eye discomfort ENMT: Denies: throat pain or dental pain Card: Denies: chest pain Resp: Denies: dyspnea GI: Denies: abdominal pain, nausea, vomiting or diarrhea : Denies: dysuria Musc: Denies: neck pain or back pain Skin/Breast: Denies: rash Neuro: Denies: headache(s) PFSH ED 2 PFSH: Medical History GERD (gastroesophageal reflux disease) Wound, open, elbow Painful orthopaedic hardware Acute lacunar stroke Dyslipidemia Diabetes Hypertension History of CVA (cerebrovascular accident) TIA (transient ischemic attack) Social History Smoking and tobacco/nicotine status: former use of tobacco/nicotine Second hand smoke exposure: No Alcohol intake: never Substance/Drug Use: never Lives independently: No Household members: friend(s) Housing: [facility] Marital status: Single service: No Current occupational status: disabled Current gender identity: Female Special brian needs: No Agree to transfusion: Yes Physical Exam 2 Const: COMMON NORMALS: patient oriented x3 HENMT: COMMON NORMALS: normocephalic and atraumatic HEAD & SCALP: n ormocephalic and atraumatic Eye: COMMON NORMALS: Equal, round and reactive pupils present and EOMs intact bilaterally PUPIL: Yes Equal, round and reactive pupils present Neck/C-Spine: COMMON NORMALS: full ROM and supple Chest: COMMONS NORMALS: normal inspection of the chest Resp: COMMON NORMALS: No retractions and No use of accessory muscles A USCULTATION: rales Cardio: COMMON NORMALS: regular rate, regular rhythm and No murmurs present (Cardio) RATE: regular rate RHYTHM: regular rhythm GI: COMMON NORMALS: Normal to inspection, nondistended, normoactive bowel sounds present, Soft to palpation, non-tender and no masses PALPATION: Yes Soft to palpation Extremity: COMMON NORMALS: normal to inspection and full ROM Neuro: COMMON NORMALS: patient oriented x3, moves all extremities and no focal motor deficits Psych: COMMON NORMALS: mental status grossly normal, Normal thought process present and cooperative THOUGHT PROCESS: Normal thought process present Skin: COMMON NORMALS: no rashes or lesions noted and no wounds GENERAL SKIN EXAM: no rashes or lesions noted Course 2 Vital Signs: Vital signs: Vital Signs Temperature 98.8 F 03/16/24 19:16 Pulse Rate 74 03/16/24 19:51 Respiratory Rate 22 H 03/16/24 19:51 Blood Pressure 216/112 03/16/24 19:51 Pulse Oximetry 94 03/16/24 19:51 Oxygen Delivery Me thod Nasal Cannula 03/16/24 19:51 Oxygen Flow Rate 2 03/16/24 19:51 MDM - SOB/Dyspnea Medical Decision Making Patient presents here with dyspnea she is hypoxic requiring 2 L she does have hypertension here along with likely CHF causing the symptoms did give her Lasix along with hydralazine I spoke to the hospitalist and will admit at this time. Medical Records I reviewed the patient's medical records. Lab Data I reviewed the patient's lab results. 03/16/24 19:36 03/16/24 19:36 Labs/Radiology: Laboratory Results WBC 7.58 10^3/uL (3.29-11.43) 03/16/24 19:36 RBC 4.68 10^6/uL (3.85-5.65) 03/16/24 19:36 Hgb 11.60 g/dL (11.27-16.99) 03/16/24 19:36 Hct 39.8 % (36-47) 03/16/24 19:36 MCV 85.0 fl (85-98) 03/16/24 19:36 MCH 24.8 pg (27-33) L 03/16/24 19:36 MCHC 29.1 g/dL (30-55) L 03/16/24 19:36 RDW 16.0 % (12.1-15.1) H 03/16/24 19:36 Plt Count 224 10^3/cmm (157-399) 03/16/24 19:36 MPV 11.3 fL (7.4-10.4) H 03/16/24 19:36 Neut % (Auto) 72.2 % 03/16/24 19:36 Lymph % (Auto) 9.0 % 03/16/24 19:36 [place] % (Auto) 15.8 % 03/16/24 19:36 Eos % (Auto) 2.2 % 03/16/24 19:36 Baso % (Auto) 0.5 % 03/16/24 19:36 Neut # (Auto) 5.47 10^3/uL (1.8-7.7) 03/16/24 19:36 Lymph # (Auto) 0.7 10^3/uL (0.8-4.8) L 03/16/24 19:36 [place] # (Auto) 1.2 10^3/uL (0.2-0.9) H 03/16/24 19:36 Eos # (Auto) 0.2 10^3/uL (0.0-0.8) 03/16/24 19:36 Baso # (Auto) 0.0 10^3/uL (0.0-0.1) 03/16/24 19:36 Nucleated RBC % (auto) 0 % 03/16/24 19:36 Nucleated RBCs # 0.0 /100WBC 03/16/24 19:36 Specimen Type Arterial 03/16/24 19:35 Sample Site Brachial, right 03/16/24 19:35 ABG pH 7.42 (7.35-7.45) 03/16/24 19:35 ABG pCO2 42.7 mmHg (35-45) 03/16/24 19:35 ABG pO2 66.3 mmHg (80.0-100.0) L 03/16/24 19:35 ABG PO2/FiO2 Ratio 0 03/16/24 19:35 ABG HCO3 27.9 mmol/L (22-26) H 03/16/24 19:35 ABG Base Excess 3.1 mmol/L (-2.0-2.0) H 03/16/24 19:35 Boris Test Pos 03/16/24 19:35 Hematocrit 36.2 % (37-47) L 03/16/24 19:35 Hgb O2 Saturation 92.4 % (95-100) L 03/16/24 19:35 Carboxyhemoglobin 0.8 %THgb (0.4-20.1) 03/16/24 19:35 Methemoglobin 0.6 % (0.4-1.5) 03/16/24 19:35 Total Hemoglobin 11.8 g/dL (12-16) L 03/16/24 19:35 O2 Delivery Device Nc 03/16/24 19:35 O2 Liters/Min 2.0 % 03/16/24 19:35 FiO2 28.0 % 03/16/24 19:35 Piano Technician ID [email or web address] 03/16/24 19:35 Sodium 139 mmol/L (136-145) 03/16/24 19:36 Potassium 4.5 mmol/L (3.5-5.1) 03/16/24 19:36 Chloride 105 mmol/L (98-107) 03/16/24 19:36 Carbon Dioxide 25 mmol/L (22-29) 03/16/24 19:36 Anion Gap 13.5 (5-19) 03/16/24 19:36 BUN 24 mg/dL (8-23) H 03/16/24 19:36 Creatinine 1.3 mg/dL (0.5-0.9) H 03/16/24 19:36 GFR Calculation Not Reportable 03/16/24 19:36 Glucose 124 mg/dL (65-115) H 03/16/24 19:36 Calculated Osmolality 293 mOsm/kg (285-295) 03/16/24 19:36 Calcium 8.3 mg/dL (8.5-10.5) L 03/16/24 19:36 Total Bilirubin 0.2 mg/dL (0.15-1.2) 03/16/24 19:36 AST 12 U/L (0-32) 03/16/24 19:36 ALT < 5 U/L (0-33) 03/16/24 19:36 Alkaline Phosphatase 64 U/L (35-105) 03/16/24 19:36 Troponin T Baseline 19 ng/L (0-10) H 03/16/24 19:36 NT-Pro-B Natriuret Pep 5408 pg/mL (0-450) H 03/16/24 19:36 Total Protein 6.7 g/dL (6.6-8.7) 03/16/24 19:36 Albumin 3.1 g/dL (3.5-5.2) L 03/16/24 19:36 Globulin 3.6 g/dL (1.3-4.6) 03/16/24 19:36 All radiology interpretation(s) finalized by discharge EKG Data EKG 1: I personally reviewed and interpreted this EKG as follows: EKG Interpretation Date: 03/16/24 EKG interpretation time: :22 Interpretation: nssr hr [address] or t wave abnormalities qrs 98 qtc 415 Discharge Plan Discharge Patient Disposition: Admitted As Inpatient Clinical Impression: Congestive heart failure, Hypertension, Hypoxia Condition: Stable Prescriptions: No Action lidocaine HCl [Lidocaine Viscous] 2 % solution 1 applic topical ONCE Qty: 1 0RF metoprolol tartrate 25 mg tablet 25 mg PO BID lidocaine HCl [Lidocaine Viscous] 2 % solution 1 applic topical ONCE Qty: 1 0RF lidocaine HCl [Lidocaine Viscous] 2 % solution 1 applic topical ONCE Qty: 1 0RF lidocaine HCl [Lidocaine Viscous] 2 % solution 1 applic topical ONCE Qty: 1 0RF multivitamin Tablet 1 tab PO QAM fluoxetine 40 mg capsule 40 mg PO QAM trazodone 50 mg tablet 50 mg PO QPM lovastatin 40 mg tablet 40 mg PO QAM clopidogrel 75 mg tablet 75 mg PO QAM amlodipine 10 mg tablet 10 mg PO QAM omeprazole 20 mg capsule,delayed release(DR/EC) 20 mg PO BID furosemide 20 mg tablet 20 mg PO QAM benazepril 20 mg tablet 20 mg PO QAM potassium chloride 20 mEq tablet extended release 20 meq PO QAM tramadol 50 mg tablet 50 mg PO Q8H PRN (Reason: pain) Qty: 14 0RF aspirin 81 mg Tablet,Delayed Release (Dr/Ec) 81 mg PO DAILY Humalog U-100 Insulin 100 unit/mL Solution See Rx Instructions .ROUTE .COMPLEX Qty: 10 0RF Rx Instructions: Inject, subcut, 3 times daily, after meals, based on sliding scale provided clonidine HCl 0.2 mg tablet 0.1 mg PO BID 30 Days Qty: 30 0RF Lantus Solostar U-100 Insulin 100 unit/mL (3 mL) insulin pen 5 unit SUBCUT QAM 90 Days Qty: 45 0RF Referrals: El Price MD [Primary Care Provider] - Coding Level of Care Code ED Conditioner Tumbler Operator for Dania Romo
[2024-03-16 19:47] LABS: Basophils % 0.5 %; Eosinophils # 0.2 10^3/uL (0.0-0.8); Eosinophils % 2.2 %; Hematocrit 39.8 % (36-47); Lymphocytes # 0.7 10^3/uL (0.8-4.8); Mean Corpuscular HGB Conc 29.1 g/dL (30-55); Mean Corpuscular Hemoglobin 24.8 pg (27-33); Mean Platelet Volume 11.3 fL (7.4-10.4); Monocytes # 1.2 10^3/uL (0.2-0.9); Monocytes % 15.8 %; Neutrophils # 5.47 10^3/uL (1.8-7.7); Neutrophils % 72.2 %; Nucleated Red Blood Cells % 0 %; Platelet Count 224 10^3/cmm (157-399); Red Blood Count 4.68 10^6/uL (3.85-5.65); White Blood Count 7.58 10^3/uL (3.29-11.43)
[2024-03-16] MEDS: methylPREDNISolone sod succ 125 mg/2 mL INJ IVP (19:49)
[2024-03-16 20:06] LABS: Troponin(5th) Baseline 19 ng/L (0-10)
[2024-03-16 20:14] LABS: Alanine Aminotransferase < 5 U/L (0-33); Albumin Level 3.1 g/dL (3.5-5.2); Alkaline Phosphatase 64 U/L (35-105); Aspartate Amino Transferase 12 U/L (0-32); Blood Urea Nitrogen 24 mg/dL (8-23); Calcium 8.3 mg/dL (8.5-10.5); Carbon Dioxide 25 mmol/L (22-29); Chloride 105 mmol/L (98-107); Creatinine Clr Calc Pharmacy 31.5626; Globulin 3.6 g/dL (1.3-4.6); Glucose 124 mg/dL (65-115); NT Pro B Type Natriuretic Pept 5408 pg/mL (0-450); Osmolality Calculated 293 mOsm/kg (285-295); Sodium 139 mmol/L (136-145); Total Bilirubin 0.2 mg/dL (0.15-1.2); Total Protein 6.7 g/dL (6.6-8.7)
[2024-03-16 20:18] LABS: Anion Gap 13.5 (5-19); Potassium 4.5 mmol/L (3.5-5.1)
--- NOTE | 2024-03-16 20:37 | P.HP_ITS ---
Providers/Chief Complaint 2 Primary Care Provider: El Price MD Chief Complaint: SOB History of Present Illness Cynthia Taveras is a 83 year old female with history of hypertension, diabetes, heart failure presented with chief complaint of shortness of breath, wheezing. Patient stating that she uses 1 to 2 L of oxygen at baseline, and she also using her machine at nighttime but she does not tell me whether to CPAP or BiPAP, no acute chest pain nausea or vomiting but endorsing diarrhea for last 3 days. No active fever. Patient is endorsing subjective fevers. Endorsing lethargy fatigue. In the ER she has been diagnosed with CHF exacerbation, active wheezing Hypertensive urgency, review of home medications done patient takes clonidine, Patient endorsing dry hacking cough for last few days as well Review of Systems 2 Const: Reports: fever(s) and chills Eyes: Denies: change in vision ENMT: Denies: throat pain Card: Denies: chest pain Resp: Reports: dyspnea GI: Denies: abdominal pain : Denies: flank pain Medications/Allergies Home Medications Medication Instructions Recorded Confirmed Last Taken Type multivitamin 1 tab PO QAM 09/12/21 12/22/23 09/22/23 History amlodipine 10 mg tablet 10 mg PO QAM 10/06/22 12/22/23 09/22/23 History clopidogrel 75 mg tablet 75 mg PO QAM 10/06/22 12/22/23 09/22/23 History fluoxetine 40 mg capsule 40 mg PO QAM 10/06/22 12/22/23 09/22/23 History furosemide 20 mg tablet 20 mg PO QAM 10/06/22 12/22/23 09/22/23 History lovastatin 40 mg tablet 40 mg PO QAM 10/06/22 12/22/23 09/22/23 History omeprazole 20 mg capsule,delayed 20 mg PO BID 10/06/22 12/22/23 09/22/23 History release trazodone 50 mg tablet 50 mg PO QPM 10/06/22 12/22/23 09/21/23 History benazepril 20 mg tablet 20 mg PO QAM 07/31/23 12/22/23 09/22/23 History potassium chloride 20 mEq 20 meq PO QAM 07/31/23 12/22/23 09/22/23 History tablet,extended release tramadol 50 mg tablet 50 mg PO Q8H PRN pain #14 tabs 08/21/23 12/22/23 10/07/23 Rx aspirin 81 mg tablet,delayed 81 mg PO DAILY 10/08/23 12/22/23 Unknown History release clonidine HCl 0.2 mg tablet 0.1 mg (1/2 x 0.2 mg) PO BID 30 10/12/23 12/22/23 09/22/23 Rx days #30 tabs insulin glargine 100 unit/mL (3 5 unit (0.05 mL) SUBCUT QAM 90 10/12/23 12/22/23 09/22/23 Rx mL) subcutaneous pen (Lantus days #45 mL Solostar U-100 Insulin) insulin lispro 100 unit/mL See Rx Instructions .Route 10/12/23 12/22/23 Unknown Rx subcutaneous solution (Humalog .COMPLEX #10 mL U-100 Insulin) metoprolol tartrate 25 mg tablet 25 mg PO BID 11/25/23 12/22/23 Unknown History Allergies Allergy/AdvReac Type Severity Reaction Status Date / Time No Known Allergies Allergy Verified 03/16/24 19:21 PFSH Acute 2 PFSH: Medical History (Updated 03/16/24 @ 21:21 by Dexter Escalante MD) CHF (congestive heart failure) Chronic pain of left lower extremity Rheumatoid arthritis Osteoporosis Depression Hip pain, right GERD (gastroesophageal reflux disease) Wound, open, elbow Painful orthopaedic hardware Acute lacunar stroke Dyslipidemia Diabetes Hypertension History of CVA (cerebrovascular accident) TIA (transient ischemic attack) Social History Smoking and tobacco/nicotine status: former use of tobacco/nicotine Second hand smoke exposure: No Alcohol intake: never Substance/Drug Use: never Lives independently: No Household members: friend(s) Housing: Custodial Marital status: Single service: No Current occupational status: disabled Current gender identity: Female Special brian needs: No Agree to transfusion: Yes Vitals/I&O/Wt Last Vital Signs Temp 98.8 F 03/16/24 19:16 Pulse 74 03/16/24 19:51 Resp 22 H 03/16/24 19:51 BP 216/112 03/16/24 19:51 Pulse Ox 94 03/16/24 19:51 O2 Del Method Nasal Cannula 03/16/24 19:51 O2 Flow Rate 2 03/16/24 19:51 Weight last 48 hrs Weight 72.121 kg Physical Exam 2 Narrative: Isaiah cooperative Clinically does not seem to be in distress Mild signs of fluid overload Currently on 3 L nasal cannula Hypertensive Pleasant cooperative GCS 15 Nonfocal neuroexam Pleasant Data 03/16/24 19:36 03/16/24 19:36 Micro: Microbiology 03/16/24 20:05 Blood Culture - Preliminary Blood SPECIMEN COLLECTED 03/16/24 20:00 Blood Culture - Preliminary Blood SPECIMEN COLLECTED A&P Assessment and plan (1) Weakness: (2) Hypoxia: (3) Congestive heart failure: (4) Hypertension: (5) Hypertensive urgency: (6) CHF exacerbation: (7) Diabetes: Qualifiers: Diabetes mellitus type: type 2 Diabetes mellitus predatory animal exterminator insulin use: with predatory animal exterminator use Diabetes mellitus complication status: with hyperglycemia Qualified Code(s): E11.65 - Type 2 diabetes mellitus with hyperglycemia; Z79.4 - supervisor intermediates (current) use of insulin Plan Acute D CHF exacerbation EF is preserved Start IV Lasix No active chest pain Hypertensive urgency Patient takes clonidine along other tablets of regimen Continue home regimen we will add IV hydralazine as well for as needed basis Acute on chronic hypoxia Baseline uses 2 L at [facility] Currently on 3 L Dry hacking cough with sore throat and subjective fevers Add azithromycin DNR/DNI goals of care discussed with the patient Likely will go back to [facility] in next 24 to 48 hours Type II diabetic insulin with sliding Attestations 2 Medical Necessity Statement*: Likely will be discharged in 48 hours Diagnoses Weakness R53.1 Hypoxia R09.02 Congestive heart failure I50.9 Hypertension I10 Hypertensive urgency I16.0 CHF exacerbation I50.9 Type 2 diabetes mellitus with hyperglycemia, with long-term current use of insulin E11.65; Z79.4 Diabetes mellitus type: type 2 Diabetes mellitus predatory animal exterminator insulin use: with predatory animal exterminator use Diabetes mellitus complication status: with hyperglycemia
[2024-03-16] MEDS: FUROsemide 10 mg/mL SDV 4mL 40 MG IVP (20:46)
[2024-03-16] MEDS: hyDRALAzine 20 mg/mL INJ 1 mL 10 MG IVP (20:47)
--- NOTE | 2024-03-16 21:26 | ECG_ITS ---
[facility] Test Date: 2024-03-16 Pat Name: Cynthia Taveras Department: Room: 111 Gender: Female Personnel Assistant: : 1940 Requested By: Abhi Bhatt Order Number: [id number] Murphy MD: Christophe Lakhani M.D. Measurements Intervals [place] Rate: 73 P: 42 DC: 142 QRS: -3 QRSD: 98 T: -33 QT: 415 QTc: 459 Interpretive Statements SINUS RHYTHM WITH SINUS ARRHYTHMIA POSSIBLE LEFT ATRIAL ENLARGEMENT [-0.1mV P-WAVE IN V1/V2] NONSPECIFIC T-WAVE ABNORMALITY Compared to ECG 03/16/2024 19:22:48 No significant changes Electronically Signed On 03-17-2024 17:15:08 CDT by Christophe Lakhani M.D. [id number]
[2024-03-16 22:13] LABS: Troponin 5 2HR 17.77 ng/L (0-10)
[2024-03-16 22:16] LABS: Troponin 5 2HR Delta -1.23 ABS# (0-10)
--- NOTE | 2024-03-16 23:01 | PC.NURSE ---
EKG scheduled for 19:26 was done in ER. Patient arrived to [facility] floor at aprox 22:45.
[2024-03-16] MEDS: heparin 5,000 unit/mL INJ 1 mL 5000 UNIT SUBCUT (23:17)
[2024-03-16] MEDS: metoprolol tartrate 25 mg Tablet PO (23:19)
[2024-03-17] VITALS (7 sets, daily range): BP systolic 140–181; BP diastolic 67–86; PULSE 63–78; RESP 17–21; TEMP 36.7–36.9; O2SAT 90–92; BMI 27.1
--- NOTE | 2024-03-17 01:26 | ECG_ITS ---
[facility] Test Date: 2024-03-17 Pat Name: Cynthia Taveras Department: Room: 111 Gender: Female Plastics Fabricator: : 1940 Requested By: Abhi Bhatt Order Number: [id number] Murphy MD: Christophe Lakhani M.D. Measurements Intervals [place] Rate: 77 P: 45 DC: 145 QRS: 18 QRSD: 97 T: 8 QT: 441 QTc: 502 Interpretive Statements SINUS RHYTHM PROLONGED QT INTERVAL Compared to ECG 03/16/2024 21:44:53 Prolonged QT interval now present Sinus arrhythmia no longer present T-wave abnormality no longer present Electronically Signed On 03-17-2024 17:14:34 CDT by Christophe Lakhani M.D. [id number]
[2024-03-17 01:39] LABS: Basophils % 0.3 %; Hematocrit 40.3 % (36-47); Lymphocytes # 0.4 10^3/uL (0.8-4.8); Lymphocytes % 4.8 %; Mean Corpuscular HGB Conc 29.8 g/dL (30-55); Mean Corpuscular Hemoglobin 24.8 pg (27-33); Mean Corpuscular Volume 83.4 fl (85-98); Mean Platelet Volume 11.1 fL (7.4-10.4); Monocytes # 0.1 10^3/uL (0.2-0.9); Monocytes % 1.2 %; Neutrophils # 6.76 10^3/uL (1.8-7.7); Neutrophils % 93.6 %; Nucleated Red Blood Cells % 0 %; Platelet Count 240 10^3/cmm (157-399); Red Blood Count 4.83 10^6/uL (3.85-5.65); Red Cell Distribution Width 16.1 % (12.1-15.1); White Blood Count 7.23 10^3/uL (3.29-11.43)
[2024-03-17 01:57] LABS: Troponin 5 6HR 17.34 ng/L (0-10)
[2024-03-17 01:58] LABS: Troponin 5 6HR Delta -1.66 ng/L (0-12)
[2024-03-17 02:03] LABS: Anion Gap 15.4 (5-19); Blood Urea Nitrogen 27 mg/dL (8-23); C Reactive Protein 24.4 mg/L (0.0-4.9); Carbon Dioxide 26 mmol/L (22-29); Chloride 102 mmol/L (98-107); Glucose 269 mg/dL (65-115); Magnesium 1.8 mg/dL (1.7-2.3); Osmolality Calculated 303 mOsm/kg (285-295); Potassium 4.4 mmol/L (3.5-5.1); Sodium 139 mmol/L (136-145)
[2024-03-17 02:04] LABS: Creatinine Clr Calc Pharmacy 30.5358
[2024-03-17] MEDS: clopidogrel 75 mg Tablet PO (05:27)
[2024-03-17] MEDS: potassium chloride ER 10 mEq Tablet 20 MEQ PO (05:27)
[2024-03-17] MEDS: lisinopril 20 mg Tablet PO (05:27)
[2024-03-17] MEDS: amlodipine 10 mg Tablet PO (05:27)
[2024-03-17 06:29] LABS: Glucose Point of Care 246 mg/dL (70-110)
[2024-03-17] MEDS: insulin glargine 100 units/1 mL 5 UNIT SUBCUT (07:30)
[2024-03-17] MEDS: insulin lispro 100 unit/1 mL SUBCUT (07:31)
[2024-03-17] MEDS: FUROsemide 10 mg/mL SDV 10mL 40 MG IVP (08:35)
[2024-03-17] MEDS: predniSONE 20 mg Tablet 40 MG PO (08:35)
[2024-03-17] MEDS: azithromycin 250 mg Tablet 500 MG PO (08:35)
[2024-03-17] MEDS: cloNIDine 0.1 mg Tablet 0.100000000000000006 MG PO (08:36)
[2024-03-17] MEDS: metoprolol tartrate 25 mg Tablet PO (08:36)
[2024-03-17 10:23] LABS: Urine Color Yellow (Yellow)
[2024-03-17 10:24] LABS: Bilirubin Urine Neg (Negative); Blood Urine 2+ (Negative); Glucose Urine UA Trace (Normal); Ketones Urine Negative (Negative); Leukocyte Esterase Urine 2+ (Negative); Nitrate Urine Positive (Negative); Protein Urine 3+ (Negative); Specific Gravity, Urine 1.015 (1.005-1.030); Urine Appearance Cloudy (CLEAR); Urobilinogen Urine Norm (Negative); pH Urine 5 (5-7)
[2024-03-17 10:30] LABS: Add Urine Culture? Yes; Bacteria Urine 2+ /hpf; Mucus Urine TRACE /hpf; Squamous Epithelial Cell Urine 0-4 /hpf (0-5); Transitional Epi Cells Urine 0-4 /hpf; WBC Urine TOO NUMEROUS TO CNT /hpf (0-5)
[2024-03-17] MEDS: heparin 5,000 unit/mL INJ 1 mL 5000 UNIT SUBCUT (10:37)
--- NOTE | 2024-03-17 10:42 | PM.DCS ---
Discharge Providers Date of Admission: 03/16/24 21:41 Date of Discharge: March 17, 2024 Attending Provider at Admission: Dexter Escalante MD Attending Provider at Discharge: Dexter Escalante MD Primary Care Provider: El Price MD Diagnoses at Discharge Discharge Diagnosis (1) Weakness: Status: Acute (2) Hypoxia: Status: Acute (3) Congestive heart failure: Status: Acute (4) Hypertension: Status: Acute (5) Hypertensive urgency: Status: Acute (6) CHF exacerbation: Status: Acute (7) Diabetes: Status: Acute Qualifiers: Diabetes mellitus type: type 2 Diabetes mellitus mcc insulin use: with watermelon inspector use Diabetes mellitus complication status: with hyperglycemia Qualified Code(s): E11.65 - Type 2 diabetes mellitus with hyperglycemia; Z79.4 - buttermaker (current) use of insulin Reason for Visit Reason for Visit: SOB Hospital Course Hospital Course 83-year female who came from [facility], stating that she uses 2 to 3 L of oxygen at baseline, she was resting shortness of breath, ER doctor notified me that patient does not use oxygen at baseline but during the interview patient endorsed using 3 L at the custodial, she was admitted as observation for acute diastolic CHF exacerbation, she was given IV Lasix, her blood pressure improved as well, her systolic blood pressure was above 200, she was given hydralazine as well, she takes clonidine which was resumed during hospitalization, for UTI and dry cough I will discharge patient back to [facility] today on antibiotics. She is being discharged with stable hemodynamics. Physical Exam Narrative: Pleasant cooperative Euvolemic GCS of 2 Nonfocal neuroexam Currently on 2 L Pleasant and cooperative Awake and alert No audible stridor or wheezing Discharge Data Studies Completed and Pending Completed Studies During Hospitalization Category Date Time Status XR chest 1V portable [id number] Stat Exams 03/16/24 19:22 Completed Pending at discharge Category Date Time Status Blood Culture Stat Lab 03/16/24 20:05 Results Urine Culture Routine Lab 03/17/24 09:28 Received CV. echo complete* [id number] Routine Ultrasound 03/17/24 23:00 Taken Radiology Impressions Chest X-Ray 03/16/24 19:22 IMPRESSION: No acute findings Laboratory Results WBC 7.23 10^3/uL (3.29-11.43) 03/17/24 01:30 RBC 4.83 10^6/uL (3.85-5.65) 03/17/24 01:30 Hgb 12.00 g/dL (11.27-16.99) 03/17/24 01:30 Hct 40.3 % (36-47) 03/17/24 01:30 MCV 83.4 fl (85-98) L 03/17/24 01:30 MCH 24.8 pg (27-33) L 03/17/24 01:30 MCHC 29.8 g/dL (30-55) L 03/17/24 01:30 RDW 16.1 % (12.1-15.1) H 03/17/24 01:30 Plt Count 240 10^3/cmm (157-399) 03/17/24 01:30 MPV 11.1 fL (7.4-10.4) H 03/17/24 01:30 Neut % (Auto) 93.6 % 03/17/24 01:30 Lymph % (Auto) 4.8 % 03/17/24 01:30 [place] % (Auto) 1.2 % 03/17/24 01:30 Eos % (Auto) 0.0 % 03/17/24 01:30 Baso % (Auto) 0.3 % 03/17/24 01:30 Neut # (Auto) 6.76 10^3/uL (1.8-7.7) 03/17/24 01:30 Lymph # (Auto) 0.4 10^3/uL (0.8-4.8) L 03/17/24 01:30 [place] # (Auto) 0.1 10^3/uL (0.2-0.9) L 03/17/24 01:30 Eos # (Auto) 0.0 10^3/uL (0.0-0.8) 03/17/24 01:30 Baso # (Auto) 0.0 10^3/uL (0.0-0.1) 03/17/24 01:30 Nucleated RBC % (auto) 0 % 03/17/24 01:30 Nucleated RBCs # 0.0 /100WBC 03/17/24 01:30 Specimen Type Arterial 03/16/24 19:35 Sample Site Brachial, right 03/16/24 19:35 ABG pH 7.42 (7.35-7.45) 03/16/24 19:35 ABG pCO2 42.7 mmHg (35-45) 03/16/24 19:35 ABG pO2 66.3 mmHg (80.0-100.0) L 03/16/24 19:35 ABG PO2/FiO2 Ratio 0 03/16/24 19:35 ABG HCO3 27.9 mmol/L (22-26) H 03/16/24 19:35 ABG Base Excess 3.1 mmol/L (-2.0-2.0) H 03/16/24 19:35 Boris Test Pos 03/16/24 19:35 Hematocrit 36.2 % (37-47) L 03/16/24 19:35 Hgb O2 Saturation 92.4 % (95-100) L 03/16/24 19:35 Carboxyhemoglobin 0.8 %THgb (0.4-20.1) 03/16/24 19:35 Methemoglobin 0.6 % (0.4-1.5) 03/16/24 19:35 Total Hemoglobin 11.8 g/dL (12-16) L 03/16/24 19:35 O2 Delivery Device Nc 03/16/24 19:35 O2 Liters/Min 2.0 % 03/16/24 19:35 FiO2 28.0 % 03/16/24 19:35 Mobile Game Engineer ID [email or web address] 03/16/24 19:35 Sodium 139 mmol/L (136-145) 03/17/24 01:30 Potassium 4.4 mmol/L (3.5-5.1) 03/17/24 01:30 Chloride 102 mmol/L (98-107) 03/17/24 01:30 Carbon Dioxide 26 mmol/L (22-29) 03/17/24 01:30 Anion Gap 15.4 (5-19) 03/17/24 01:30 BUN 27 mg/dL (8-23) H 03/17/24 01:30 Creatinine 1.3 mg/dL (0.5-0.9) H 03/17/24 01:30 GFR Calculation Not Reportable 03/17/24 01:30 Glucose 269 mg/dL (65-115) H 03/17/24 01:30 POC Glucose 246 mg/dL (70-110) H 03/17/24 06:21 Calculated Osmolality 303 mOsm/kg (285-295) H 03/17/24 01:30 Calcium 9.0 mg/dL (8.5-10.5) 03/17/24 01:30 Magnesium 1.8 mg/dL (1.7-2.3) 03/17/24 01:30 Total Bilirubin 0.2 mg/dL (0.15-1.2) 03/16/24 19:36 AST 12 U/L (0-32) 03/16/24 19:36 ALT < 5 U/L (0-33) 03/16/24 19:36 Alkaline Phosphatase 64 U/L (35-105) 03/16/24 19:36 Troponin T Baseline 19 ng/L (0-10) H 03/16/24 19:36 Troponin T 120 Minute 17.77 ng/L (0-10) H 03/16/24 21:42 Delta Troponin T -1.23 ABS# (0-10) L 03/16/24 21:42 Troponin T Hi Sens 6Hr 17.34 ng/L (0-10) H 03/17/24 01:30 Troponin T Hi Sens 6Hr Delta -1.66 ng/L (0-12) L 03/17/24 01:30 C-Reactive Protein 24.4 mg/L (0.0-4.9) H 03/17/24 01:30 NT-Pro-B Natriuret Pep 5408 pg/mL (0-450) H 03/16/24 19:36 Total Protein 6.7 g/dL (6.6-8.7) 03/16/24 19:36 Albumin 3.1 g/dL (3.5-5.2) L 03/16/24 19:36 Globulin 3.6 g/dL (1.3-4.6) 03/16/24 19:36 Urine Color Yellow (Yellow) 03/17/24 09:28 Urine Appearance Cloudy (CLEAR) A 03/17/24 09:28 Urine pH 5 (5-7) 03/17/24 09:28 Ur Specific [place] 1.015 (1.005-1.030) 03/17/24 09:28 Urine Protein 3+ (Negative) H 03/17/24 09:28 Urine Glucose (UA) Trace (Normal) H 03/17/24 09:28 Urine Ketones Negative (Negative) 03/17/24 09:28 Urine Blood 2+ (Negative) H 03/17/24 09:28 Urine Nitrate Positive (Negative) H 03/17/24 09:28 Urine Bilirubin Neg (Negative) 03/17/24 09:28 Urine Urobilinogen Norm mg/dL (Negative) 03/17/24 09:28 Ur Leukocyte Esterase 2+ (Negative) H 03/17/24 09:28 Urine RBC 5-10 /hpf (0-2) H 03/17/24 09:28 Urine WBC Too numerous to cnt /hpf (0-5) H 03/17/24 09:28 Ur Squamous Epith Cells 0-4 /hpf (0-5) H 03/17/24 09:28 Ur Transition Epith Cell 0-4 /hpf 03/17/24 09:28 Amorphous Sediment Not Reportable 03/17/24 09:28 Urine Bacteria 2+ /hpf (NONE) H 03/17/24 09:28 Urine Mucus Trace /hpf 03/17/24 09:28 Vitals Last Vital Signs Temp 98.4 F 03/17/24 07:49 Pulse 78 03/17/24 07:49 Resp 20 H 03/17/24 07:49 BP 173/79 03/17/24 08:36 Pulse Ox 92 03/17/24 07:49 O2 Del Method Nasal Cannula 03/17/24 07:49 O2 Flow Rate 2 03/16/24 21:30 Discharge Plan Discharge Patient Disposition: Xfer SNF Condition: Stable Prescriptions: New cefpodoxime 200 mg tablet 200 mg PO BID Qty: 20 0RF Rx Instructions: must administer with a meal/food doxycycline hyclate 100 mg tablet 100 mg PO BID 3 Days Qty: 6 0RF Continued lidocaine HCl [Lidocaine Viscous] 2 % solution 1 applic topical ONCE Qty: 1 0RF metoprolol tartrate 25 mg tablet 25 mg PO BID lidocaine HCl [Lidocaine Viscous] 2 % solution 1 applic topical ONCE Qty: 1 0RF multivitamin Tablet 1 tab PO QAM trazodone 50 mg tablet 50 mg PO QPM lovastatin 40 mg tablet 40 mg PO QAM clopidogrel 75 mg tablet 75 mg PO QAM amlodipine 10 mg tablet 10 mg PO QAM omeprazole 20 mg capsule,delayed release(DR/EC) 20 mg PO BID benazepril 20 mg tablet 20 mg PO QAM potassium chloride 20 mEq tablet extended release 20 meq PO QAM tramadol 50 mg tablet 50 mg PO Q8H PRN (Reason: pain) Qty: 14 0RF aspirin 81 mg Tablet,Delayed Release (Dr/Ec) 81 mg PO DAILY insulin lispro [Humalog U-100 Insulin] 100 unit/mL Solution See Rx Instructions .ROUTE .COMPLEX Qty: 10 0RF Rx Instructions: Inject, subcut, 3 times daily, after meals, based on sliding scale provided clonidine HCl 0.2 mg tablet 0.1 mg PO BID 30 Days Qty: 30 0RF insulin glargine [Lantus Solostar U-100 Insulin] 100 unit/mL (3 mL) insulin pen 5 unit SUBCUT QAM 90 Days Qty: 45 0RF Changed furosemide 20 mg tablet 40 mg PO QAM Qty: 60 3RF Discontinued lidocaine HCl [Lidocaine Viscous] 2 % solution 1 applic topical ONCE Qty: 1 0RF lidocaine HCl [Lidocaine Viscous] 2 % solution 1 applic topical ONCE Qty: 1 0RF fluoxetine 40 mg capsule 40 mg PO QAM Celebrex 200 mg capsule 200 mg PO BID Discharge Orders: Discharge Order (Routine); Ordered 03/17/24 Ordered By: Dexter Escalante Referrals: El Price MD [Primary Care Provider] - Discharge Attestations Time Spent in Discharge Care*: greater than 30 min Status at Discharge: Cognitive status at discharge: cognitively intact, Behavioral status at discharge: cooperative, Quality Metrics Clinical Quality Measures [ No reported AMI, CVA or VTE this stay] Coding Level of Care Code Acute Code for Chg Fwd Diagnoses Weakness R53.1 Hypoxia R09.02 Congestive heart failure I50.9 Hypertension I10 Hypertensive urgency I16.0 CHF exacerbation I50.9 Type 2 diabetes mellitus with hyperglycemia, with long-term current use of insulin E11.65; Z79.4 Diabetes mellitus type: type 2 Diabetes mellitus watermelon inspector insulin use: with watermelon inspector use Diabetes mellitus complication status: with hyperglycemia
[2024-03-17 11:54] LABS: Glucose Point of Care 228 mg/dL (70-110)
--- NOTE | 2024-03-17 23:00 | USCV_ITS ---
Cynthia Taveras Age: 83 Gender: F : 1940 Exam Date: 03/17/2024 00:17 Ordering Phys: Dexter Escalante MD Technologist: [email or web address] Exam Location: [facility] [place] Indication: hypoxic in the 80s in ER. Patient is unresponsive in CSU-111-2 BP: 179 / 61 HR: 70 Rhythm: Sinus Technical Quality: Adequate MEASUREMENTS (Male / Female) Normal Values 2D ECHO LV Diastolic Diameter PLAX 4.4 cm 4.2 - 5.9 / 3.9 - 5.3 cm IVS Diastolic Thickness 2.0 cm 0.6 - 1.0 / 0.6 - 0.9 cm IVS Systolic Thickness 2.3 cm LVPW Diastolic Thickness 1.7 cm 0.6 - 1.0 / 0.6 - 0.9 cm LVPW Systolic Thickness 2.2 cm LVOT Diameter 2.1 cm LV Ejection Fraction 2D Teich 69.8 % LV Ejection Fraction MOD 2C 62.7 % LV Ejection Fraction 2C AL 64.3 % LA Diameter 3.1 cm LA Sys Volume AL 73.5 cm cubed LA Sys Volume Index AL 40.8 cm cubed/m squared Aorta at Sinotubular Diameter 3.2 cm IVC Diameter 1.1 cm M-MODE LA Ao Ratio MM 1.2 AV Cusp Separation MM 1.8 cm DOPPLER AV Peak Velocity 166.0 cm/s LVOT Peak Velocity 91.0 cm/s AV Area Cont Eq vti 2.7 cm squared AV Area Cont Eq pk 1.9 cm squared MV Peak Velocity 143.0 cm/s MV Area PHT 4.5 cm squared Mitral E to A Ratio 0.7 TV Peak Velocity 254.0 cm/s TR Peak Velocity 270.0 cm/s TR Peak Gradient 29.2 mmHg TV Peak E Velocity 50.0 cm/s Right Atrial Pressure 3.0 mmHg Pulmonary Artery Systolic Pressu 32.2 mmHg PV Peak Velocity 100.0 cm/s FINDINGS Left Ventricle Left ventricle is normal in size. Left ventricular systolic function is normal with EF of 60 to 65%. No regional wall motion abnormalities are seen. Moderate to severe left ventricular hypertrophy. Grade 1 diastolic dysfunction. Right Ventricle Normal in size and function Right Atrium Normal in size Left Atrium Dilated Mitral Valve Mild mitral annular calcification. Trace mitral regurgitation. Aortic Valve Aortic valve is thickened and calcified. No significant stenosis Tricuspid Valve Mild tricuspid regurgitation. RVSP is normal. Pulmonic Valve Not well visualized Pericardium Normal Aorta Normal in size IVC Appears to be normal CONCLUSIONS LV systolic function is normal with EF of 60 to 65%. Moderate to severe left ventricular hypertrophy Grade 1 diastolic dysfunction. Left atrial dilation Trace mitral regurgitation Mild tricuspid regurgitation Compared to prior echocardiogram from 2022, no significant changes are seen. Christophe Lakhani MD (Electronically Signed) Final Date: 17 Mar 2024 11:02 S
== END 2024-03-17 12:36 | disposition skilled nursing facility (03) ==
LOC: ER 21:23 → CSU 03-17 00:45
PROVIDERS: Admitting Provider Internal Medicine; Emergency Provider Emergency Medicine; PCP Internal Medicine; Visit Provider Internal Medicine
DX: R09.02 Hypoxemia (principal); R53.1 Weakness; I11.0 Hypertensive heart disease with heart failure; I50.30 Unspecified diastolic (congestive) heart failure; I16.0 Hypertensive urgency; E11.65 Type 2 diabetes mellitus with hyperglycemia; Z79.4 Long term (current) use of insulin; Z79.82 Long term (current) use of aspirin; M81.0 Age-related osteoporosis without current pathological fracture; E78.5 Hyperlipidemia, unspecified; Z86.73 Personal history of transient ischemic attack (TIA), and cerebral infarction without residual deficits; Z87.891 Personal history of nicotine dependence; Z66 Do not resuscitate; R05.9 Cough, unspecified; R50.9 Fever, unspecified
CPT/HCPCS: 36415; 36416; 36600; 71045; 80048; 80053; 81001; 82805; 82962; 83735; 83880; 84484; 85025; 86140; 87040; 87077; 87086; 87186; 93005; 93306; 96372; 96374; 96375; 99285; G0378; J0360; J1644; J1815; J1940; J2919; J7512; Q0144

== ENCOUNTER 2024-12-17 16:24 | Inpatient (IN) | payer MEDICARE, MEDICAID, SELFPAY ==
[2024-12-17] VITALS (62 sets, daily range): BP systolic 112–212; BP diastolic 63–121; PULSE 40–89; RESP 12–22; TEMP 36.9; O2SAT 92–100; BMI 26.9
--- NOTE | 2024-12-17 16:32 | CTR_ITS ---
PROCEDURE INFORMATION: Exam: CT Head Without Contrast Exam date and time: 12/17/2024 4:25 PM Age: 84 years old Clinical indication: Stroke-like symptoms; Speech disturbance; Lt upper extremity and lt lower extremity weakness; Additional info: Left sided weakness, AMS TECHNIQUE: Imaging protocol: Computed tomography of the head without contrast. Radiation optimization: All CT scans at this facility use at least one of these dose optimization techniques: automated exposure control; mA and/or kV adjustment per patient size (includes targeted exams where dose is matched to clinical indication); or iterative reconstruction. Other technique: STROKE PROTOCOL was implemented. COMPARISON: CT head wo con* [id number] 10/08/2023 6:27 PM RADIATION DOSE METRICS: Total DLP (mGy-cm): 1006.38 FINDINGS: Brain: No acute intracranial hemorrhage. No edema. No mass effect. There are stable extensive hypodense areas in the bilateral periventricular white matter suggestive of chronic small vessel ischemic changes. 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 Cerebral ventricles: No hydrocephalus. The ventricles and sulci are prominent in size in keeping with brain atrophy. Paranasal sinuses: There is nearly complete opacification of the right maxillary sinus with no air-fluid levels suggestive of chronic sinusitis. The sinus was not included in the prior exam. Mastoid air cells: No mastoid effusion. Bones: Unremarkable. No acute fracture. Soft tissues: Unremarkable. CT/CT head thrombolytic [id number] IMPRESSION: Stable chronic findings with no evidence of acute intracranial hemorrhage, mass or acute infarction. ASSESSMENT: ASPECTS (Tanisha Stroke Program Early CT Score) is 10.
--- NOTE | 2024-12-17 16:33 | XRR_ITS ---
PROCEDURE INFORMATION: Exam: XR Chest Exam date and time: 12/17/2024 5:14 PM Age: 84 years old Clinical indication: Weakness; AMS; CVA protocol TECHNIQUE: Imaging protocol: Radiologic exam of the chest. Views: 1 view. COMPARISON: CR XR chest 1V portable [id number] 03/16/2024 7:39 PM FINDINGS: Lungs: No consolidation. Pleural spaces: No pleural effusion. No pneumothorax. Heart/Mediastinum: No cardiomegaly. Bones/joints: No acute findings. XR/XR chest 1V portable [id number] IMPRESSION: No acute findings.
--- NOTE | 2024-12-17 16:40 | ECG_ITS ---
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
[2024-12-17 16:45] LABS: Glucose Point of Care 210 mg/dL (70-110)
--- NOTE | 2024-12-17 16:48 | W.ED.NEUROSD ---
HPI - Neuro Symptoms/Deficit General: Chief Complaint: Neuro Symptoms/Deficit Stated Complaint: left sided weakness Time Seen by Provider: 12/17/24 16:30 History of Present Illness: 84-year-old female Related Data Home Medications ?Medication ?Instructions ?Recorded ?Confirmed multivitamin 1 tab PO QAM 09/12/21 03/16/24 amlodipine 10 mg tablet 10 mg PO QAM 10/06/22 03/16/24 clopidogrel 75 mg tablet 75 mg PO QAM 10/06/22 03/16/24 lovastatin 40 mg tablet 40 mg PO QAM 10/06/22 03/16/24 omeprazole 20 mg capsule,delayed 20 mg PO BID 10/06/22 03/16/24 release trazodone 50 mg tablet 50 mg PO QPM 10/06/22 03/16/24 benazepril 20 mg tablet 20 mg PO QAM 07/31/23 03/16/24 potassium chloride 20 mEq 20 meq PO QAM 07/31/23 03/16/24 tablet,extended release aspirin 81 mg tablet,delayed 81 mg PO DAILY 10/08/23 03/17/24 release metoprolol tartrate 25 mg tablet 25 mg PO BID 11/25/23 03/16/24 Previous Rx's ?Medication ?Instructions ?Recorded tramadol 50 mg tablet 50 mg PO Q8H PRN pain #14 tabs 08/21/23 clonidine HCl 0.2 mg tablet 0.1 mg (1/2 x 0.2 mg) PO BID 30 10/12/23 days #30 tabs insulin glargine 100 unit/mL (3 5 unit (0.05 mL) SUBCUT QAM 90 10/12/23 mL) subcutaneous pen (Lantus days #45 mL Solostar U-100 Insulin) insulin lispro 100 unit/mL See Rx Instructions .Route 10/12/23 subcutaneous solution (Humalog .COMPLEX #10 mL U-100 Insulin) cefpodoxime 200 mg tablet 200 mg PO BID #20 tabs 03/17/24 furosemide 20 mg tablet 40 mg (2 x 20 mg) PO QAM #60 tabs 03/17/24 Allergies Allergy/AdvReac Type Severity Reaction Status Date / Time No Known Allergies Allergy Verified 03/16/24 19:21 [facility] ED [facility]: Medical History (Updated 12/17/24 @ 19:13 by Katelyn Rucker MD) CHF exacerbation Hypertensive urgency CHF (congestive heart failure) Chronic pain of left lower extremity Rheumatoid arthritis Osteoporosis Depression Hip pain, right Hypoxia Hypertension Congestive heart failure GERD (gastroesophageal reflux disease) Wound, open, elbow Painful orthopaedic hardware Acute lacunar stroke Dyslipidemia Diabetes Hypertension History of CVA (cerebrovascular accident) TIA (transient ischemic attack) Social History Smoking and tobacco/nicotine status: former use of tobacco/nicotine Second hand smoke exposure: No Alcohol intake: never Substance/Drug Use: never Lives independently: No Household members: friend(s) Housing: Jail Marital status: Single service: No Current occupational status: disabled Current gender identity: Female Special brian needs: No Agree to transfusion: Yes Course Vital Signs: Vital signs: Vital Signs Temperature 98.4 F 12/17/24 16:38 Pulse Rate 67 12/17/24 18:15 Respiratory Rate 14 12/17/24 18:15 Blood Pressure 169/81 12/17/24 17:14 Pulse Oximetry 98 12/17/24 18:15 Oxygen Delivery Me thod Nasal Cannula 12/17/24 18:01 Oxygen Flow Rate 2 12/17/24 18:01 MDM - Neuro Symptoms/Deficit Medical Decision Making Medical decision making: Differential diagnosis for patient with focal neurologic deficit(s) includes but not limited to and based on the above HPI, review of systems and physical exam: ischemic stroke, hemorrhagic stroke and embolic stroke secondary to atrial fibrillation), TIA, Almanza's palsey, metabolic encephalopathy with previous stroke. Orders placed to evaluate differential diagnosis based on the above differential, HPI and physical exam NIH Stroke Scale/Score (NIHSS) from [employer] on 12/17/2024 All calculations should be rechecked by clinician prior to use RESULT SUMMARY: 1 points NIH Stroke Scale INPUTS: 1A: Level of consciousness ?> 0 = Alert; keenly responsive 1B: Ask month and age ?> 0 = Both questions right 1C: 'Blink eyes' & 'squeeze hands' ?> 0 = Performs both tasks 2: Horizontal extraocular movements ?> 0 = Normal 3: Visual lewis ?> 0 = No visual loss 4: Facial palsy ?> 0 = Normal symmetry 5A: Left arm motor drift ?> 0 = No drift for 10 seconds 5B: Right arm motor drift ?> 0 = No drift for 10 seconds 6A: Left leg motor drift ?> 0 = No drift for 5 seconds 6B: Right leg motor drift ?> 0 = No drift for 5 seconds 7: Limb Ataxia ?> 0 = No ataxia 8: Sensation ?> 0 = Normal; no sensory loss 9: Language/aphasia ?> 0 = Normal; no aphasia 10: Dysarthria ?> 1 = Mild-moderate dysarthria: slurring but can be understood 11: Extinction/inattention ?> 0 = No abnormality Consultation: I spoke Dr. Ca who is on-call for neurology. At this point the patient has an NIH of 1. It is not felt that she would need TNKase at this time. CT head: No acute intracranial process. no intracranial hemorrhage, no evidence of infarct. no evidence of acute fracture.This was reviewed and interpreted by myself the ER physician. EKG: Sinus bradycardia, No ST-T changes, no ectopy, normal RI & QRS intervals, This was reviewed and interpreted by myself the ER physician Lab Review: Laboratory results were reviewed and interpreted by myself the emergency room physician. Mild leukocytosis. No anemia. Worsening renal insufficiency. BUN and creatinine are 34 and 2.1. Her creatinine is normally around 1.1-1.3. Fluids were given. I reviewed the patient's medical record. Reexamination: At around 1840 I went back to reevaluate the patient. She tried to drink some water and choked on it. Speech seemed quite a bit worse at this point. She also seemed to have a little bit more confusion. I spoke again with Dr. Ca and we agreed that TNKase should be given. At this time I spoke with the patient and discussed risks and benefits and she agreed to treatment. Consultation: I spoke with Dr. Escalante who is on-call for the hospitalist service who agrees to admission. Assessment and plan: Cerebrovascular accident Dysarthria Dysphagia Dehydration Acute on chronic renal insufficiency ?With change in patient's symptoms with much worsening and new dysphagia patient was given TNKase. This is about 15 minutes after change in symptoms. ?Normal saline bolus for dehydration. 500 mL. -I discussed the patient with the hospitalist on-call who is admitting the patient. - Discussed findings and plan with patient. Answered any questions. - All laboratory values were reviewed and interpreted personally by myself, the ER physician - All imaging was reviewed and interpreted personally by myself, the ER physician. - Evaluation and treatment of this problem were appropriate in the emergency setting Critical care -I spent a total of >35 minutes of critical care time managing the patient, independent of any other practitioner. -The time involved in the performance of separately reportable procedures was not counted towards critical care time. Lab Data 12/17/24 16:40 12/17/24 16:[address] 12/17/24 16:32 IMPRESSION: Stable chronic findings with no evidence of acute intracranial hemorrhage, mass or acute infarction. ASSESSMENT: ASPECTS ([place] Stroke Program Early CT Score) is 10. ADDENDUM: 12/17/24 8911 THIS REPORT CONTAINS FINDINGS THAT MAY BE CRITICAL TO PATIENT CARE. The findings were verbally communicated via telephone conference with KATELYN RUCKER at 4:50 PM CHILD CARE NURSE on 12/17/2024. The findings were acknowledged and understood. Chest X-Ray 12/17/24 16:33 IMPRESSION: No acute findings. Laboratory Results WBC 11.54 10^3/uL (3.29-11.43) H 12/17/24 16:40 RBC 4.39 10^6/uL (3.85-5.65) 12/17/24 16:40 Hgb 12.10 g/dL (11.27-16.99) 12/17/24 16:40 Hct 39.8 % (36-47) 12/17/24 16:40 MCV 90.7 fl (85-98) 12/17/24 16:40 MCH 27.6 pg (27-33) 12/17/24 16:40 MCHC 30.4 g/dL (30-55) 12/17/24 16:40 RDW 12.7 % (12.1-15.1) 12/17/24 16:40 Plt Count 220 10^3/cmm (157-399) 12/17/24 16:40 MPV 11.9 fL (7.4-10.4) H 12/17/24 16:40 Neut % (Auto) 74.3 % 12/17/24 16:40 Lymph % (Auto) 12.0 % 12/17/24 16:40 [place] % (Auto) 9.6 % 12/17/24 16:40 Eos % (Auto) 3.3 % 12/17/24 16:40 Baso % (Auto) 0.5 % 12/17/24 16:40 Neut # (Auto) 8.58 10^3/uL (1.8-7.7) H 12/17/24 16:40 Lymph # (Auto) 1.4 10^3/uL (0.8-4.8) 12/17/24 16:40 [place] # (Auto) 1.1 10^3/uL (0.2-0.9) H 12/17/24 16:40 Eos # (Auto) 0.4 10^3/uL (0.0-0.8) 12/17/24 16:40 Baso # (Auto) 0.1 10^3/uL (0.0-0.1) 12/17/24 16:40 Nucleated RBC % (auto) 0 % 12/17/24 16:40 Nucleated RBCs # 0.0 /100WBC 12/17/24 16:40 PT 12.80 SECONDS (12.1-14.9) 12/17/24 16:40 INR 0.90 (0.8-1.2) 12/17/24 16:40 APTT 25.4 SECONDS (23.9-36.7) 12/17/24 16:40 Sodium 137 mmol/L (136-145) 12/17/24 16:40 Potassium 4.6 mmol/L (3.5-5.1) 12/17/24 16:40 Chloride 101 mmol/L (98-107) 12/17/24 16:40 Carbon Dioxide 29 mmol/L (22-29) 12/17/24 16:40 Anion Gap 11.6 (5-19) 12/17/24 16:40 BUN 34 mg/dL (8-23) H 12/17/24 16:40 Creatinine 2.1 mg/dL (0.5-0.9) H 12/17/24 16:40 GFR Calculation Not Reportable 12/17/24 16:40 Glucose 216 mg/dL (65-115) H 12/17/24 16:40 POC Glucose 210 mg/dL (70-110) H 12/17/24 16:37 Calculated Osmolality 298 mOsm/kg (285-295) H 12/17/24 16:40 Lactic Acid 1.2 mmol/L (0.5-2.2) 12/17/24 16:40 Calcium 8.9 mg/dL (8.5-10.5) 12/17/24 16:40 Total Bilirubin 0.3 mg/dL (0.15-1.2) 12/17/24 16:40 AST 13 U/L (0-32) 12/17/24 16:40 ALT 9 U/L (0-33) 12/17/24 16:40 Alkaline Phosphatase 71 U/L (35-105) 12/17/24 16:40 Total Protein 6.3 g/dL (6.6-8.7) L 12/17/24 16:40 Albumin 3.6 g/dL (3.5-5.2) 12/17/24 16:40 Globulin 2.7 g/dL (1.3-4.6) 12/17/24 16:40 Urine Color Yellow (Yellow) 12/17/24 17:58 Urine Appearance Clear (CLEAR) 12/17/24 17:58 Urine pH 5.5 (5-7) 12/17/24 17:58 Ur Specific [place] 1.012 (1.005-1.030) 12/17/24 17:58 Urine Protein 2+ (Negative) A 12/17/24 17:58 Urine Glucose (UA) Negative (Normal) 12/17/24 17:58 Urine Ketones Negative (Negative) 12/17/24 17:58 Urine Blood Negative (Negative) 12/17/24 17:58 Urine Nitrate Negative (Negative) 12/17/24 17:58 Urine Bilirubin Negative (Negative) 12/17/24 17:58 Urine Urobilinogen 0.2 mg/dL (Negative) 12/17/24 17:58 Ur Leukocyte Esterase Negative (Negative) 12/17/24 17:58 Urine RBC 0-4 /hpf (0-2) H 12/17/24 17:58 Urine WBC 0-4 /hpf (0-5) H 12/17/24 17:58 Ur Squamous Epith Cells 0-4 /hpf (0-5) H 12/17/24 17:58 Amorphous Sediment Not Reportable 12/17/24 17:58 Urine Bacteria Trace /hpf (NONE) 12/17/24 17:58 Influenza A (PCR) Negative (Negative) 12/17/24 17:22 Influenza Type B (PCR) Negative (Negative) 12/17/24 17:22 RSV (PCR) Negative (Negative) 12/17/24 17:22 SARS-CoV-2 (PCR) Negative (Negative) 12/17/24 17:22 All radiology interpretation(s) finalized by discharge Discharge Plan Discharge Patient Disposition: Admitted As Inpatient Clinical Impression: Cerebrovascular accident, Dysarthria, Dysphagia, Dehydration, Acute on chronic renal insufficiency Condition: Stable Coding Level of Care Code ED Director [employer]ience Marketing for Dania Romo
[2024-12-17] MEDS: sodium chloride 0.9% 500 ML 999 ML IV (16:50)
[2024-12-17 16:52] LABS: Basophils # 0.1 10^3/uL (0.0-0.1); Basophils % 0.5 %; Eosinophils # 0.4 10^3/uL (0.0-0.8); Eosinophils % 3.3 %; Hematocrit 39.8 % (36-47); Lymphocytes # 1.4 10^3/uL (0.8-4.8); Mean Corpuscular HGB Conc 30.4 g/dL (30-55); Mean Corpuscular Hemoglobin 27.6 pg (27-33); Mean Corpuscular Volume 90.7 fl (85-98); Mean Platelet Volume 11.9 fL (7.4-10.4); Monocytes # 1.1 10^3/uL (0.2-0.9); Monocytes % 9.6 %; Neutrophils # 8.58 10^3/uL (1.8-7.7); Neutrophils % 74.3 %; Nucleated Red Blood Cells % 0 %; Platelet Count 220 10^3/cmm (157-399); Red Blood Count 4.39 10^6/uL (3.85-5.65); Red Cell Distribution Width 12.7 % (12.1-15.1); White Blood Count 11.54 10^3/uL (3.29-11.43)
[2024-12-17] MEDS: albuterol 2.5 mg/3 mL Neb INHALATION (17:00)
[2024-12-17 17:10] LABS: Partial Thromboplastin Time 25.4 SECONDS (23.9-36.7)
[2024-12-17 17:17] LABS: Lactic Sepsis W/Reflex 1.2 mmol/L (0.5-2.2)
[2024-12-17 17:18] LABS: Alanine Aminotransferase 9 U/L (0-33); Albumin Level 3.6 g/dL (3.5-5.2); Alkaline Phosphatase 71 U/L (35-105); Anion Gap 11.6 (5-19); Aspartate Amino Transferase 13 U/L (0-32); Blood Urea Nitrogen 34 mg/dL (8-23); Calcium 8.9 mg/dL (8.5-10.5); Carbon Dioxide 29 mmol/L (22-29); Chloride 101 mmol/L (98-107); Globulin 2.7 g/dL (1.3-4.6); Glucose 216 mg/dL (65-115); Osmolality Calculated 298 mOsm/kg (285-295); Potassium 4.6 mmol/L (3.5-5.1); Sodium 137 mmol/L (136-145); Total Bilirubin 0.3 mg/dL (0.15-1.2); Total Protein 6.3 g/dL (6.6-8.7)
[2024-12-17 17:24] LABS: Creatinine Clr Calc Pharmacy 18.4977
[2024-12-17 18:04] LABS: Bilirubin Urine Negative (Negative); Blood Urine Negative (Negative); Glucose Urine UA Negative (Normal); Ketones Urine Negative (Negative); Leukocyte Esterase Urine Negative (Negative); Nitrate Urine Negative (Negative); Protein Urine 2+ (Negative); Specific Gravity, Urine 1.012 (1.005-1.030); Urine Appearance Clear (CLEAR); Urine Color Yellow (Yellow); Urobilinogen Urine 0.2 mg/dL (Negative); pH Urine 5.5 (5-7)
[2024-12-17 18:18] LABS: Add Urine Culture? No; Bacteria Urine TRACE /hpf; RBC Urine 0-4 /hpf (0-2); Squamous Epithelial Cell Urine 0-4 /hpf (0-5); WBC Urine 0-4 /hpf (0-5)
[2024-12-17] MEDS: tenecteplase 50mg Kit (STROKE) 17 MG IVP (18:57)
[2024-12-17 19:06] LABS: Influenza A NEGATIVE (Negative); Influenza B NEGATIVE (Negative); Respiratory Syncytial Virus Ce NEGATIVE (Negative); SARS-CoV-2 PCR NEGATIVE (Negative)
--- NOTE | 2024-12-17 19:08 | PC.NURSE ---
this nurse assumed pt care from SUE Mcneil at 1900.
--- NOTE | 2024-12-17 19:12 | PM.SAN ---
Stroke Alert Activation ED Arrival Date: 12/17/24 ED Arrival Time: 16:33 ED Physican at Bedside: 16:48 Last Known Normal/at Baseline: < 1 hour ago Other Last Known Well Infomation: This is a somewhat complicated story. The nurse who witnessed onset of this patient's symptoms indicates that Cynthia was walking down the [place] at 1515 when her legs collapsed. She was weak on the left side and her speech was so garbled that it was unintelligible. EMS was called. The patient arrived at [facility] at 1633 and she was evaluated in CAT scan by Dr. Rucker, who found that in his opinion the patient symptoms had resolved except for mild dysarthria. The nurse charted that the patient had severe dysarthria. The nurse did a swallowing study at 630 and suggested TNK because the patient could not swallow a small amount of water without choking and her speech was unintelligable. She recieved TNK at around 1900, which was 2 and a half hours from arrival in ED. The delay was imposed by Dr. Rucker's opinion that the patient symptoms resolved and then worsened but still within the 4.5 hour window for TPA. I came to the ED to evaluate the patient after giving the order to give thrombolytic. The patient has severe dysarthria but is oriented and alert with no eye movement abnormalities. She is a little clumsy on fine movements with the left hand. Her symptoms are improving now. Stroke Alert Activated by: ems Stroke Alert Activation Time: 14:14 Stroke MD @ Bedside Time: 14:30 NIH Stroke Scale Time: 19:15 NIH stroke score NIHSS: Level Of Consciousness - 1a: 0 Level Of Consciousness Questions - 1b: Both Correct Level Of Consciousness Commands - 1c: Both Correct Best Gaze - 2: Normal Visual Richardson - 3: No Visual Loss Facial Palsy - 4: Normal Motor Arm Right - 5: No Drift Motor Arm Left - 5: Drift Motor Leg Right - 6: No Drift Motor Leg Left - 6: No Drift Limb Ataxia - 7: Absent Sensory - 8: Normal Best Language - 9: No Aphasia Dysarthia - 10: Severe Dysarthia Extinction And Inattention - 11: 0 Score: Total Score: 3 Critical Care Time Critical Care Time: 30 - 74 mins A&P Assessment and plan (1) Dysarthria: 84-year-old woman who is independent with a walker at [facility] who experienced sudden onset of weakness at 315 this afternoon (1514), witnessed by her roommate, Timo. She had [place] her nurse, and she came out of the room walking toward the telephone to make a call when her legs collapsed and she was too weak to walk further. She was weak on the left side and her speech was unintelligible. On arrival here all of her symptoms had resolved and Dr. Rucker was of the opinion that her speech deficit was mild or minimal. She was observed in the emergency department and I talked with Dr. Rucker several times and her CT of the head was unremarkable, her neurologic exam remained unremarkable and then her swallowing study, performed by Rocio Gomez, demonstrated that not only could she not speak but she could not swallow. At that point she received TNK, about 4 hours from onset of symptoms, several hours after arrival here but probably her speech worsened after arrival and that was the reason for proceeding with thrombolytic therapy. Plan Admit to ICU post TNK. I talked with the nurse at the patient's place of residence and she will convey to significant other that the patient will be staying in the hospital after thrombolytic. If she does well and does not have a hemorrhage she can probably go home within 24 to 48 hours. This appears to be a small lacunar event with clumsy hand dysarthria and the limiting factor is going to be her ability to swallow and whether she will need a feeding tube. Add Plavix to aspirin. Change from lovastatin to atorvastatin. PDMP PDMP Reviewed: Not Reviewed Coding Level of Care Code Acute Code for Chg Fwd Diagnoses Dysarthria R47.1
[2024-12-17] MEDS: labetalol 5 mg/mL SDV 20mL 10 MG IVP (20:05)
--- NOTE | 2024-12-17 20:15 | PM.HP ---
Providers/Chief Complaint Primary Care Provider: El Price MD Chief Complaint: left sided weakness History of Present Illness Cynthia Taveras is a 84 year old female with history of chronic hypoxia uses 3 L at baseline, diastolic CHF, insulin-dependent diabetes, resistant hypertension, presented with symptoms of stroke, resident of [facility], evaluated by neurologist, hospitalist consulted for admission after TNKase administration. Patient had suffered from lower extremity weakness, fell on the ground around 3:15 PM today which was witnessed by the nursing staff, her speech was garbled at that time & incomprehensible, patient arrived around 4:33 PM in the ER patient & received TNKase around 7 PM. Please review neurology critical note for further details. At the time of evaluation patient had a new event when became confused, lethargic has been experiencing increased salivation, she was put her into left lateral position, she is saturating well 94% on 2 L nasal cannula, she is hypertensive, as per the nursing staff she became bradycardic for a few seconds and then spontaneously heart rate improved, patient is able to follow commands, she was able to shake my hand, able to lift her hands in the air for about 10 seconds, extreme lethargic and fatigued, she soiled herself with urine I am requesting another CT scan of head without contrast to rule out intracranial hemorrhage Currently she is on 2 L nasal cannula Nursing notes reviewed: She is DNR/DNI I have requested nurse to wait until we review CT scan report to rule out intracranial hemorrhage before admitting her to the ICU since we do not have neurosurgery available Review of Systems General: Reports: ROS unobtainable due to medical condition and ROS unobtainable due to mental status Medications/Allergies Home Medications ?Medication ?Instructions ?Recorded ?Confirmed ?Last Taken ?Type multivitamin 1 tab PO QAM 09/12/21 03/16/24 03/16/24 History amlodipine 10 mg tablet 10 mg PO QAM 10/06/22 03/16/24 03/16/24 History clopidogrel 75 mg tablet 75 mg PO QAM 10/06/22 03/16/24 03/16/24 History lovastatin 40 mg tablet 40 mg PO QAM 10/06/22 03/16/24 03/16/24 History omeprazole 20 mg capsule,delayed 20 mg PO BID 10/06/22 03/16/24 03/16/24 History release trazodone 50 mg tablet 50 mg PO QPM 10/06/22 03/16/24 03/16/24 History benazepril 20 mg tablet 20 mg PO QAM 07/31/23 03/16/24 03/16/24 History potassium chloride 20 mEq 20 meq PO QAM 07/31/23 03/16/24 03/16/24 History tablet,extended release tramadol 50 mg tablet 50 mg PO Q8H PRN pain #14 tabs 08/21/23 03/16/24 03/16/24 Rx aspirin 81 mg tablet,delayed 81 mg PO DAILY 10/08/23 03/17/24 03/15/24 History release clonidine HCl 0.2 mg tablet 0.1 mg (1/2 x 0.2 mg) PO BID 30 10/12/23 03/16/24 03/16/24 Rx days #30 tabs insulin glargine 100 unit/mL (3 5 unit (0.05 mL) SUBCUT QAM 90 10/12/23 03/16/24 03/16/24 Rx mL) subcutaneous pen (Lantus days #45 mL Solostar U-100 Insulin) insulin lispro 100 unit/mL See Rx Instructions .Route 10/12/23 03/16/24 03/16/24 Rx subcutaneous solution (Humalog .COMPLEX #10 mL U-100 Insulin) metoprolol tartrate 25 mg tablet 25 mg PO BID 11/25/23 03/16/24 03/16/24 History cefpodoxime 200 mg tablet 200 mg PO BID #20 tabs 03/17/24 Unknown Rx furosemide 20 mg tablet 40 mg (2 x 20 mg) PO QAM #60 tabs 03/17/24 Unknown Rx Allergies Allergy/AdvReac Type Severity Reaction Status Date / Time No Known Allergies Allergy Verified 03/16/24 19:21 PFSH Acute PFSH: Medical History (Updated 12/17/24 @ 20:49 by Dexter Escalante MD) Need for home health care Insomnia TIA (transient ischemic attack) Osteoarthritis of left knee Pressure ulcer of sacral region, stage 3 Anxiety and depression Pulmonary embolism CHF exacerbation Hypertensive urgency CHF (congestive heart failure) Chronic pain of left lower extremity Rheumatoid arthritis Osteoporosis Depression Hip pain, right Hypoxia Hypertension Congestive heart failure GERD (gastroesophageal reflux disease) Wound, open, elbow Painful orthopaedic hardware Acute lacunar stroke Dyslipidemia Diabetes Hypertension History of CVA (cerebrovascular accident) TIA (transient ischemic attack) Social History Smoking and tobacco/nicotine status: former use of tobacco/nicotine Second hand smoke exposure: No Alcohol intake: never Substance/Drug Use: never Lives independently: No Household members: friend(s) Housing: Care Home Marital status: Single service: No Current occupational status: disabled Current gender identity: Female Special brian needs: No Agree to transfusion: Yes Vitals/I&O/Wt Last Vital Signs Temp 98.4 F 12/17/24 16:38 Pulse 65 12/17/24 19:45 Resp 16 12/17/24 19:45 BP 199/101 12/17/24 19:45 Pulse Ox 99 12/17/24 19:20 O2 Del Method Nasal Cannula 12/17/24 18:01 O2 Flow Rate 2 12/17/24 18:01 12/17/24 12/17/24 12/17/24 06:59 14:59 22:59 Intake Total 500 / 500 Balance 500 / 500 Weight last 48 hrs Weight 66.678 kg Physical Exam Narrative: Patient in left lateral position Experiencing increased salivation Currently on 2 L nasal cannula saturating 94% Rhonchi bilateral Patient is able to follow commands however not able to communicate at all Word salad/dysarthria/: Severe Pupils are symmetrical Patient was trying to tell that she is hurting all over however it was very hard to understand, Abdomen distended nontender Clinically no signs of fluid overload S1, S2 variable AO x 1 Data 12/17/24 16:40 12/17/24 16:40 Micro: Microbiology 12/17/24 17:30 Blood Culture - Preliminary Blood SPECIMEN COLLECTED 12/17/24 17:37 Blood Culture - Preliminary Blood SPECIMEN COLLECTED A&P Assessment and plan (1) Dysphagia: (2) Cerebrovascular accident: (3) Dysarthria: (4) Acute on chronic renal insufficiency: (5) Dehydration: Plan Acute CVA Significant dysarthria Expressive aphasia Likely MCA territory Status post TNKase as per neurology Keep blood pressure below 180/105 mmHg Keep Tylenol on board on as-needed basis Goal euglycemia with insulin started scale Accu-Cheks every 4 hours Patient is diabetic Patient experiencing significant dysarthria, emesis, hypertension with bradycardia: I have requested another CT scan on stat basis without contrast Will request lipid panel hemoglobin A1c Patient is a resident of [facility] My concern is related to her significant dysarthria: She might not be able to eat will request PT OT and ST If she is not able to eat she would carry significantly guarded prognosis For next 24 hours no antiplatelet therapy since she has received TNKase around 7 PM 12/17 Frequent neurochecks Admit to ICU Currently patient able to protect airway however confused: Goals of care reviewed: Patient is DNR/DNI Acute on chronic kidney disease Hold BenzePrO Using IV hydralazine on as needed basis Clinically does not look fluid overloaded Muñoz catheter to be placed Diastolic CHF no acute exacerbation Holding off on diuretics Chronic hypoxia patient requires 2 to 3 L of oxygen at baseline Insulin-dependent diabetic: Accu-Cheks every 4 hours low intensity sliding scale Considering acute CVA I would avoid hypotonic dextrose IV fluids for now Muñoz catheter to be placed, I have requested nursing staff N.p.o. for now PDMP PDMP Reviewed: Not Reviewed Attestations Medical Necessity Statement*: More than 2 midnights anticipated will need evaluation in the ICU after TNKase Patient may worsen in next 24 to 48 hours Diagnoses Dysphagia R13.10 Cerebrovascular accident I63.9 Dysarthria R47.1 Acute on chronic renal insufficiency N28.9; N18.9 Dehydration E86.0
--- NOTE | 2024-12-17 20:41 | CTR_ITS ---
PROCEDURE INFORMATION: Exam: CT Head Without Contrast Exam date and time: 12/17/2024 8:54 PM Age: 84 years old Clinical indication: Pain; Headache; C/O severe frontal TERRAZAS with hypertension over 200 systolic/over 100 diastolic post tnkase admin approx. Two hours ago. ; Additional info: Post tnkase, headache TECHNIQUE: Imaging protocol: Computed tomography of the head without contrast. Radiation optimization: All CT scans at this facility use at least one of these dose optimization techniques: automated exposure control; mA and/or kV adjustment per patient size (includes targeted exams where dose is matched to clinical indication); or iterative reconstruction. COMPARISON: CT head thrombolytic [id number] 12/17/2024 4:25 PM RADIATION DOSE METRICS: Total DLP (mGy-cm): 1044.41 FINDINGS: Brain: No acute intracranial hemorrhage, mass effect or midline shift. 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 There is also a small chronic infarct at the left cerebellar hemisphere. Cerebral ventricles: Ex vacuo dilatation of the ventricles, similar to prior. Paranasal sinuses: Almost complete opacification of the right maxillary sinus. Mastoid air cells: Visualized mastoid air cells are well aerated. Bones: Unremarkable. No acute fracture. Soft tissues: Unremarkable. CT/CT head wo con* [id number] IMPRESSION: 1. No acute intracranial findings. 2. Right maxillary sinus disease. Correlate for sinusitis. 3. Additional chronic findings as above.
[2024-12-17 20:44] LABS: Chol HDL Ratio 3.07 mg/dL (0.0-4.40); Cholesterol 135 mg/dL (0-200); HDL Cholesterol 44 mg/dL (60-100); LDL Cholesterol Calculated 57 mg/dL (50-129); Triglycerides 169 mg/dL (0-150)
[2024-12-17 20:59] LABS: Estmated Average Glucose 180; Hemoglobin A1C 7.9 % (4.0-6.0)
[2024-12-17 21:17] LABS: NT Pro B Type Natriuretic Pept 1421 pg/mL (0-450)
[2024-12-17] MEDS: scopolamine 1 mg PATCH 1 PATCH TRANSDERMA (22:02)
[2024-12-17 22:19] LABS: Glucose Point of Care 238 mg/dL (70-110)
[2024-12-17] MEDS: hyDRALAzine 20 mg/mL INJ 1 mL 10 MG IVP (23:05)
[2024-12-18] VITALS (54 sets, daily range): BP systolic 113–192; BP diastolic 58–94; PULSE 63–100; RESP 12–25; TEMP 36.4–37.1; O2SAT 89–98
[2024-12-18 00:55] LABS: Glucose Point of Care 244 mg/dL (70-110)
--- NOTE | 2024-12-18 01:07 | PC.NURSE ---
Contacted Dr. Escalante in reference to patient's persistent HTN and high BG of 244. Received orders for 10mg hydralazine IVP once now, and received orders for one time insulin administration off patient's assigned sliding scale.
[2024-12-18 01:42] LABS: Vitamin B12 692 pg/mL (232-1245)
[2024-12-18] MEDS: hyDRALAzine 20 mg/mL INJ 1 mL 10 MG IVP (02:13)
[2024-12-18] MEDS: insulin lispro 100 unit/1 mL 6 UNIT SUBCUT (02:13)
[2024-12-18] MEDS: ondansetron 2 mg/ML SDV 2 mL 4 MG IVP (02:14)
--- NOTE | 2024-12-18 02:24 | PC.NURSE ---
Patient complained of some right sided lower quadrant pain. When being assessed for pain, patient started to vomit profusely. It is likely the patient aspirated between vomiting and Staff raising her to fully sitting up position and beginning suctioning. Patient's lungs sound more coarse than when she arrived, and O2 moved from 2L to 3.5L, currently at 93% O2. Dr. Escalante notified. Zofran PRN dose administered.
[2024-12-18 04:42] LABS: Glucose Point of Care 196 mg/dL (70-110)
[2024-12-18 07:58] LABS: Glucose Point of Care 191 mg/dL (70-110)
[2024-12-18] MEDS: insulin lispro 100 unit/1 mL SUBCUT (09:04)
[2024-12-18 09:18] LABS: Basophils % 0.2 %; Eosinophils # 0.1 10^3/uL (0.0-0.8); Eosinophils % 0.6 %; Hematocrit 37.3 % (36-47); Lymphocytes # 0.8 10^3/uL (0.8-4.8); Mean Corpuscular HGB Conc 31.4 g/dL (30-55); Mean Corpuscular Hemoglobin 27.6 pg (27-33); Mean Platelet Volume 11.8 fL (7.4-10.4); Monocytes # 0.8 10^3/uL (0.2-0.9); Monocytes % 5.8 %; Neutrophils # 12.08 10^3/uL (1.8-7.7); Neutrophils % 87.1 %; Nucleated Red Blood Cells % 0 %; Platelet Count 221 10^3/cmm (157-399); Red Blood Count 4.24 10^6/uL (3.85-5.65); Red Cell Distribution Width 12.9 % (12.1-15.1); White Blood Count 13.88 10^3/uL (3.29-11.43)
[2024-12-18 09:37] LABS: Alanine Aminotransferase 9 U/L (0-33); Albumin Level 3.5 g/dL (3.5-5.2); Alkaline Phosphatase 70 U/L (35-105); Anion Gap 16.6 (5-19); Aspartate Amino Transferase 13 U/L (0-32); Blood Urea Nitrogen 34 mg/dL (8-23); Calcium 8.9 mg/dL (8.5-10.5); Carbon Dioxide 27 mmol/L (22-29); Chloride 104 mmol/L (98-107); Creatinine Clr Calc Pharmacy 19.4475; Globulin 2.8 g/dL (1.3-4.6); Glucose 203 mg/dL (65-115); Osmolality Calculated 309 mOsm/kg (285-295); Potassium 4.6 mmol/L (3.5-5.1); Sodium 143 mmol/L (136-145); Total Bilirubin 0.5 mg/dL (0.15-1.2); Total Protein 6.3 g/dL (6.6-8.7)
--- NOTE | 2024-12-18 09:40 | CTR_ITS ---
PROCEDURE INFORMATION: Exam: CT Abdomen And Pelvis Without Contrast Exam date and time: 12/18/2024 10:07 AM Age: 84 years old Clinical indication: Other: Xavier TECHNIQUE: Imaging protocol: Computed tomography of the abdomen and pelvis without contrast. Radiation optimization: All CT scans at this facility use at least one of these dose optimization techniques: automated exposure control; mA and/or kV adjustment per patient size (includes targeted exams where dose is matched to clinical indication); or iterative reconstruction. COMPARISON: CR XR pelvis 1-2V* [id number] 09/22/2023 11:01 AM RADIATION DOSE METRICS: Total DLP (mGy-cm): 683.18 FINDINGS: Liver: Normal. No mass. Gallbladder and biliary ducts: Cholecystectomy. Pancreas: Normal. No ductal dilation. Spleen: Normal. No splenomegaly. Adrenal glands: Normal. No mass. Kidneys and ureters: Markedly atrophic left kidney. Normal-appearing right kidney. No cyst, mass, or obstructive changes. Stomach and bowel: Diverticulosis without evidence of diverticulitis. Appendix: No evidence of appendicitis. Intraperitoneal space: Unremarkable. No free air. No significant fluid collection. Vasculature: Unremarkable. No abdominal aortic aneurysm. Lymph nodes: Unremarkable. No enlarged lymph nodes. Urinary bladder: The urinary bladder is collapsed around Muñoz catheter. Reproductive: Hysterectomy. 3 cm cystic appearing structure in the low left pelvis is probably related to the left ovary. Bones/joints: Degenerative changes of the lumbar spine. Soft tissues: Unremarkable. CT/CT kidney stone [id number] IMPRESSION: 1. Atrophic left kidney. 2. No acute subdiaphragmatic pathology.
--- NOTE | 2024-12-18 09:40 | XRR_ITS ---
PROCEDURE INFORMATION: Exam: XR Chest Exam date and time: 12/18/2024 10:12 AM Age: 84 years old Clinical indication: Shortness of breath; Additional info: Hypoxia, possible asp TECHNIQUE: Imaging protocol: Radiologic exam of the chest. Views: 1 view. COMPARISON: CR (CHEST, ) 12/17/2024 5:14 PM FINDINGS: Lungs: Unremarkable. No consolidation. Pleural spaces: Unremarkable. No pleural effusion. No pneumothorax. Heart/Mediastinum: Unremarkable. No cardiomegaly. Bones/joints: Unremarkable. XR/XR chest 1V portable [id number] IMPRESSION: No acute findings.
--- NOTE | 2024-12-18 09:43 | PC.NURSE ---
NIH score of 3 at 0800 edited to a 7 at the time of this note due to nursing judgment.
[2024-12-18] MEDS: cefTRIAXone 1,000 mg SDV 1000 MG IVP (10:34)
--- NOTE | 2024-12-18 10:41 | MRR_ITS ---
PROCEDURE INFORMATION: Exam: MR Head Without Contrast Exam date and time: 12/18/2024 2:05 PM Age: 84 years old Clinical indication: Altered mental status/memory loss; Confusion or disorientation; Additional info: Stroke, fluctuating mentation TECHNIQUE: Imaging protocol: Magnetic resonance imaging of the head without contrast. COMPARISON: CT head wo con* [id number] 12/17/2024 8:54 PM FINDINGS: Brain: Multifocal restricted diffusion in the bilateral cerebellar hemispheres as well as in the midbrain and wendy. Moderate periventricular and subcortical T2 FLAIR hyperintensities. Chronic lacunar infarcts in the bilateral basal ganglia. Encephalomalacia in the left cerebellar hemisphere from chronic left cerebellar infarct. Cerebral ventricles: Normal. No ventriculomegaly. Bones: Unremarkable. Paranasal sinuses: Right maxillary sinus opacification. The left maxillary sinus and ethmoid sinuses are well aerated. Mastoid air cells: Normal as visualized. No mastoid effusion. Orbital cavities: Unremarkable. Soft tissues: Unremarkable. MR/MR head wo con* [id number] IMPRESSION: 1. Multifocal acute infarcts in the bilateral cerebellar hemispheres [id number] as well as the midbrain and wendy. 2. Chronic left cerebellar infarct as well as bilateral basal ganglia lacunar infarcts. 3. Moderate periventricular and subcortical chronic ischemic small-vessel diseas 20 e.
[2024-12-18] MEDS: sodium chloride 0.9% 1,000 ML 60 ML IV (10:49)
--- NOTE | 2024-12-18 11:48 | PC.NURSE ---
Attempted to give hydralazine, amlodipine, and atorvastatin PO meds crushed in pudding, Patient would hold meds in mouth. Even when prompted to swallow, patient unable to swallow. Also attempted nectar thick liquids, liquid would run from patients mouth, patient is able to stick tongue out and follow commands. Will call speech therapy for evaluation.
[2024-12-18 12:02] LABS: Glucose Point of Care 119 mg/dL (70-110)
--- NOTE | 2024-12-18 15:00 | P.PN_ITS ---
Subjective 2 Subjective: Admitted overnight. H&P and labs appreciated. Examination seen laying comfortably in bed, awake and responding to physical stimulus. Patient able to follow directions. Has weakness of left upper limb. Garbled voice. Appreciate hemodynamics. Vitals/I&O/Wt Last Vital Signs Temp 97.9 F 12/18/24 13:33 Pulse 84 12/18/24 13:33 Resp 14 12/18/24 13:33 BP 119/79 12/18/24 13:33 Pulse Ox 98 12/18/24 09:30 O2 Del Method Nasal Cannula 12/18/24 09:30 O2 Flow Rate 2 12/18/24 09:30 12/18/24 12/18/24 12/18/24 06:59 14:59 22:59 Output Total 960 / 960 Balance -960 / -460 Weight last 48 hrs Weight 66.86 kg Weight 66.86 kg Weight 66.678 kg Physical Exam 2 Narrative: General: No acute distress, AO x2-3, Severe dysarthria HEENT: PERRLA, pupils bilaterally equal and reactive Chest: Bilateral bronchial breath sounds all over lung lewis with occasional rhonchi, coarse crackles present in right lower zone CVS: S1-S2 regular, no murmurs, no tachycardia, no gallops, no rubs Abdomen: Soft, nontender, no organomegaly, bowel sounds present Neuro: Facial drooping on the left side, left upper limb flaccid paralysis, AO x 2 to 3, pupils bilaterally equal and reactive, lower limb bilateral 3/5, severe dysarthria Urinary Catheter Management: Muñoz: Cath Placed During This Visit: yes Reason for Continuing Indwelling Catheter: Accurate Measurement of Urinary Output in Critically Ill Patients Urinary Catheter Date of Insertion: 12/17/24 Urinary Catheter Time of Insertion: 22:19 Data 12/18/24 08:58 12/18/24 08:58 Micro: Microbiology 12/17/24 17:30 Blood Culture - Preliminary Blood SPECIMEN COLLECTED 12/17/24 17:37 Blood Culture - Preliminary Blood SPECIMEN COLLECTED A&P Assessment and plan (1) Cerebrovascular accident: (2) 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 Goal blood pressure less than 140/90 mmHg. Patient has a severe dysarthria. Have fluctuating mentation. Has had episodes of confusion and difficulty to wake up occasionally as per nursing staff. Currently awake and alert. CT head 24 hours post tPA. Check MRI brain given fluctuating mentation. Speech/physical therapy/Occupational Therapy evaluation. Advance diet accordingly. Currently patient not safe to administer oral medications. Failed bedside swallow. Appreciate A1c, lipid panel. Echocardiogram results awaited. Will plan for CTA head and neck in next 24 hours. Start on rectal aspirin. Hypertension: Goal blood pressure less than 140/90 MAG. Patient will take orally. IV hydralazine 10 mg every 4 hours as needed for systolic of more than 160 mmHg. IV metoprolol 5 mg every 4 hours as needed for heart rate of more than 110bpm. Hold for a systolic blood pressure of less than 100 mmhg. Leukocytosis: UA negative for UTI. Cannot rule out mild aspiration. Could be reactive in setting of CVA. Check of blood cultures. Patient has history of UTI with Staph aureus and E. coli in the past. Appreciate sensitivities. Start on IV ceftriaxone 1 g daily. Check chest x-ray. Check MRSA swab. EMMA on CKD: Baseline creatinine 1.2-1.5. Currently 2. Medical reconciliation done for nephrotoxic drugs. Most likely in setting of dehydration along with home use of NSAID, OUMAR inhibitor at home. Patient can also possibly have diabetic nephropathy. Check CT abdomen pelvis to rule out renal obstruction. Start on NS at 50 cc/h. Monitor BMP daily. No concern for electrolyte abnormality or metabolic acidosis for now. History of diastolic heart failure: Currently euvolemic to slightly dehydrated. Fluid as above. Watch for fluid overload. Awaiting echocardiogram. Chronic hypoxia. Chronically on 2 L of oxygen. Type 2 diabetes mellitus: A1c 7.9. Insulin sliding scale every 6 hour. N.p.o. Protonix for PUD prophylaxis SCD for DVT prophylaxis. Patient is post tPA. Restart other home medications when patient is able to take orally. 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
[2024-12-18] MEDS: pantoprazole 40 mg SDV IVP (16:07)
[2024-12-18 16:14] LABS: Glucose Point of Care 129 mg/dL (70-110)
[2024-12-18 17:42] LABS: MRSA PCR OZH (swab) MRSA Detected (Not Detecte)
[2024-12-18 19:37] LABS: Glucose Point of Care 145 mg/dL (70-110)
--- NOTE | 2024-12-18 19:41 | CTR_ITS ---
PROCEDURE INFORMATION: Exam: CT Head Without Contrast Exam date and time: 12/18/2024 8:03 PM Age: 84 years old Clinical indication: Other: F/u tnkase; 24 hour f/u post tnkase admin. TECHNIQUE: Imaging protocol: Computed tomography of the head without contrast. Radiation optimization: All CT scans at this facility use at least one of these dose optimization techniques: automated exposure control; mA and/or kV adjustment per patient size (includes targeted exams where dose is matched to clinical indication); or iterative reconstruction. COMPARISON: MR head wo con* [id number] 12/18/2024 2:05 PM RADIATION DOSE METRICS: Total DLP (mGy-cm): 996.9 FINDINGS: Brain: Large amount of diffuse white matter disease likely reflecting chronic microvascular ischemic changes. Chronic bilateral basal ganglia and left cerebellar infarcts similar to prior exam. Cerebral ventricles: No ventriculomegaly. Paranasal sinuses: Paranasal sinus opacifications. Mastoid air cells: Visualized mastoid air cells are well aerated. Bones: Unremarkable. No acute fracture. Soft tissues: Unremarkable. CT/CT head wo con* [id number] IMPRESSION: Negative for intracranial hemorrhage or mass effect.
--- NOTE | 2024-12-18 20:57 | USCV_ITS ---
Cynthia Taveras Age: 84 Gender: F : 1940 Exam Date: 12/18/2024 09:06 Ordering Phys: Dexter Escalante MD Technologist: [place] Exam Location: [facility] [place] Indication: cva BP: 132 / 73 HR: Rhythm: Sinus Technical Quality: Adequate MEASUREMENTS (Male / Female) Normal Values 2D ECHO LV Diastolic Diameter PLAX 4.4 cm 4.2 - 5.9 / 3.9 - 5.3 cm IVS Diastolic Thickness 1.1 cm 0.6 - 1.0 / 0.6 - 0.9 cm IVS Systolic Thickness 1.6 cm LVPW Diastolic Thickness 2.2 cm 0.6 - 1.0 / 0.6 - 0.9 cm LVPW Systolic Thickness 2.1 cm LVOT Diameter 2.1 cm LV Ejection Fraction 2D Teich 58.1 % LV Ejection Fraction MOD 4C 67.7 % LV Ejection Fraction MOD 2C 63.4 % LV Ejection Fraction 2C AL 63.9 % LA Diameter 3.5 cm RA Systolic Volume 4C AL 27.9 ml RA Systolic Volume 4C MOD 27.4 ml LA Sys Volume AL 41.3 cm cubed LA Sys Volume Index AL 23.9 cm cubed/m squared Aorta at Sinotubular Diameter 2.7 cm IVC Diameter 1.9 cm M-MODE LA Ao Ratio MM 1.5 AV Cusp Separation MM 1.1 cm FINDINGS Left Ventricle Left ventricle is normal in size. LV systolic function is normal with EF of 55-60%. No regional wall motion abnormalities are seen. Right Ventricle Normal in size and function Right Atrium Normal in size. Bubble study does not show evidence of intracardiac shunting Left Atrium Normal in size Mitral Valve Mitral valve appears thickened.Doppler exam not performed. Aortic Valve Aortic valve is thickened and calcified. Doppler exam not performed. Tricuspid Valve Grossly normal Pulmonic Valve Not well visualized Pericardium Normal Aorta Normal in size IVC Not well visualized CONCLUSIONS Limited echo performed to assess for intracardiac shunting with bubble study. LV systolic function is normal with EF 55 to 60%. Bubble study does not show evidence of intracardiac shunt Christophe Lakhani MD (Electronically Signed) Final Date: 18 December 2024 10:47 S
[2024-12-18 23:12] LABS: Glucose Point of Care 164 mg/dL (70-110)
[2024-12-19] VITALS (32 sets, daily range): BP systolic 102–166; BP diastolic 49–93; PULSE 64–85; RESP 13–25; TEMP 36.8–37.2; O2SAT 74–100
[2024-12-19] MEDS: insulin lispro 100 unit/1 mL SUBCUT ×3 (03:49→18:37)
[2024-12-19 03:52] LABS: Glucose Point of Care 166 mg/dL (70-110)
[2024-12-19] MEDS: sodium chloride 0.9% 1,000 ML 60 ML IV (03:52)
[2024-12-19 04:29] LABS: Basophils # 0.1 10^3/uL (0.0-0.1); Basophils % 0.6 %; Eosinophils # 0.2 10^3/uL (0.0-0.8); Eosinophils % 1.9 %; Hematocrit 35.3 % (36-47); Lymphocytes # 1.9 10^3/uL (0.8-4.8); Lymphocytes % 19.2 %; Mean Corpuscular HGB Conc 30.3 g/dL (30-55); Mean Corpuscular Hemoglobin 27.4 pg (27-33); Mean Corpuscular Volume 90.5 fl (85-98); Mean Platelet Volume 12.9 fL (7.4-10.4); Monocytes # 1.2 10^3/uL (0.2-0.9); Monocytes % 11.5 %; Neutrophils # 6.69 10^3/uL (1.8-7.7); Neutrophils % 66.5 %; Nucleated Red Blood Cells % 0 %; Platelet Count 260 10^3/cmm (157-399); Red Cell Distribution Width 13.2 % (12.1-15.1); White Blood Count 10.06 10^3/uL (3.29-11.43)
[2024-12-19 07:13] LABS: Alanine Aminotransferase 7 U/L (0-33); Albumin Level 3.2 g/dL (3.5-5.2); Alkaline Phosphatase 61 U/L (35-105); Anion Gap 14.1 (5-19); Aspartate Amino Transferase 14 U/L (0-32); Blood Urea Nitrogen 34 mg/dL (8-23); Calcium 8.8 mg/dL (8.5-10.5); Carbon Dioxide 26 mmol/L (22-29); Chloride 110 mmol/L (98-107); Creatinine Clr Calc Pharmacy 21.5392; Globulin 2.9 g/dL (1.3-4.6); Glucose 117 mg/dL (65-115); Osmolality Calculated 311 mOsm/kg (285-295); Potassium 4.1 mmol/L (3.5-5.1); Sodium 146 mmol/L (136-145); Total Bilirubin 0.4 mg/dL (0.15-1.2); Total Protein 6.1 g/dL (6.6-8.7)
--- NOTE | 2024-12-19 09:55 | PC.NURSE ---
Atorvastatin held. Swallow eval just completed by speech therapy. Aspiration risk 75% of the time per speech.
[2024-12-19] MEDS: dextrose 5%-sod chloride 0.45% 1,000 ML 75 ML IV (10:30)
[2024-12-19 10:34] LABS: Glucose Point of Care 216 mg/dL (70-110)
[2024-12-19] MEDS: cefTRIAXone 1,000 mg SDV 1000 MG IVP (10:35)
[2024-12-19] MEDS: aspirin 300 mg Supp PR (10:35)
[2024-12-19] MEDS: pantoprazole 40 mg SDV IVP (10:35)
[2024-12-19] MEDS: lanolin oint 7 gm 1 APPLIC TOPICAL (10:40)
--- NOTE | 2024-12-19 11:01 | PC.NURSE ---
Page Makeup System Operator rounds @2036, patient working with speech therapy, still having some left sided weakness and facial droop, difficulty enunciating words, gave patient stroke education book.
--- NOTE | 2024-12-19 11:38 | PM.PN ---
Subjective Subjective: No events overnight. Today morning examination patient is little more awake and alert. Able to have conversation. Continues to have garbled voice. Able to tell me that she is in hospital, her name, not sure why she is in the hospital. Overnight she has remained hemodynamically stable and afebrile. Vitals/I&O/Wt Last Vital Signs Temp 98.3 F 12/19/24 05:00 Pulse 76 12/19/24 09:07 Resp 18 12/19/24 09:07 BP 129/60 12/19/24 05:15 Pulse Ox 93 12/19/24 09:07 O2 Del Method Nasal Cannula 12/19/24 09:07 O2 Flow Rate 2 12/19/24 09:07 12/18/24 12/19/24 12/19/24 22:59 06:59 14:59 Intake Total 1000 / 1000 Output Total 400 / 400 Balance 600 / 600 Weight last 48 hrs Weight 66.406 kg Weight 66.86 kg Weight 66.86 kg Weight 66.678 kg Physical Exam Narrative: General: No acute distress, AO x2-3, Severe dysarthria HEENT: PERRLA, pupils bilaterally equal and reactive Chest: Bilateral bronchial breath sounds all over lung lewis with occasional rhonchi, coarse crackles present in right lower zone CVS: S1-S2 regular, no murmurs, no tachycardia, no gallops, no rubs Abdomen: Soft, nontender, no organomegaly, bowel sounds present Neuro: Facial drooping on the left side, left upper limb and lower limb 2/5 improving, AO x 2 to 3, pupils bilaterally equal and reactive, lower limb bilateral 3/5, severe dysarthria Urinary Catheter Management: Muñoz: Cath Placed During This Visit: yes Reason for Continuing Indwelling Catheter: Accurate Measurement of Urinary Output in Critically Ill Patients Urinary Catheter Date of Insertion: 12/17/24 Urinary Catheter Time of Insertion: 22:19 Data 12/19/24 03:59 12/19/24 06:47 Micro: Microbiology 12/17/24 17:30 Blood Culture - Preliminary Blood NEGATIVE TO DATE 12/17/24 17:37 Blood Culture - Preliminary Blood NEGATIVE TO DATE A&P Assessment and plan (1) Cerebrovascular accident: (2) 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 Goal blood pressure less than 140/90 mmHg. Patient has a severe dysarthria. Have fluctuating mentation. Has had episodes of confusion and difficulty to wake up occasionally as per nursing staff. Currently awake and alert. CT head 24 hours post tPA. Check MRI brain given fluctuating mentation. Speech/physical therapy/Occupational Therapy evaluation. Advance diet accordingly. Currently patient not safe to administer oral medications. Failed bedside swallow. Appreciate A1c, lipid panel. Echocardiogram results awaited. Will plan for CTA head and neck in next 24 hours. Start on rectal aspirin. Hypertension: Goal blood pressure less than 140/90 MAG. Patient will take orally. IV hydralazine 10 mg every 4 hours as needed for systolic of more than 160 mmHg. IV metoprolol 5 mg every 4 hours as needed for heart rate of more than 110bpm. Hold for a systolic blood pressure of less than 100 mmhg. Leukocytosis: UA negative for UTI. Cannot rule out mild aspiration. Could be reactive in setting of CVA. Check of blood cultures. Patient has history of UTI with Staph aureus and E. coli in the past. Appreciate sensitivities. Start on IV ceftriaxone 1 g daily. Check chest x-ray. Check MRSA swab. EMMA on CKD: Baseline creatinine 1.2-1.5. Currently 2. Medical reconciliation done for nephrotoxic drugs. Most likely in setting of dehydration along with home use of NSAID, OUMAR inhibitor at home. Patient can also possibly have diabetic nephropathy. Check CT abdomen pelvis to rule out renal obstruction. Start on NS at 50 cc/h. Monitor BMP daily. No concern for electrolyte abnormality or metabolic acidosis for now. History of diastolic heart failure: Currently euvolemic to slightly dehydrated. Fluid as above. Watch for fluid overload. Awaiting echocardiogram. Chronic hypoxia. Chronically on 2 L of oxygen. Type 2 diabetes mellitus: A1c 7.9. Insulin sliding scale every 6 hour. N.p.o. Protonix for PUD prophylaxis SCD for DVT prophylaxis. Patient is post tPA. Plan for the day: Creatinine improving. Down to 1.8. Continue with IV fluids. Patient developing hypernatremia today. Switch fluid from NS to D5 half NS at 75 cc/h. Repeat BMP in afternoon. Goal blood pressure less than 140/90 mmHg. Blood pressure stable for now. Patient not able to get oral medications as remains NPO. PT/OT. Advance diet as per speech evaluation. If patient is unable to improve within next 24 to 48 hours would benefit from modified barium swallow. Follow-up blood cultures. Continue with IV ceftriaxone 1 g daily for now. Switch to baby aspirin 81 mg daily. MRI done yesterday consistent with multifocal thromboembolic strokes. Will plan to start patient on full dose anticoagulation with Eliquis. Given her creatinine of 1.8 and age of more than 82 for now we will start on 2.5 mg twice daily. Can plan to change dose depending on improvement with creatinine going forward. Watch for anemia. Tried calling patient's son over the phone to discuss further regarding patient's health and possible need for feeding tube. Left a voice message. Transfer to [facility]. 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
--- NOTE | 2024-12-19 14:36 | PC.SOCIAL ---
IMM Updated Updated pt on IMM. No questions voiced. Provided pt a copy. Initialed, dated, & timed a copy & placed in chart.
[2024-12-19 15:53] LABS: Anion Gap 16.2 (5-19); Blood Urea Nitrogen 29 mg/dL (8-23); Calcium 8.7 mg/dL (8.5-10.5); Carbon Dioxide 25 mmol/L (22-29); Chloride 110 mmol/L (98-107); Creatinine Clr Calc Pharmacy 22.8062; Glucose 181 mg/dL (65-115); Osmolality Calculated 314 mOsm/kg (285-295); Potassium 4.2 mmol/L (3.5-5.1); Sodium 147 mmol/L (136-145)
[2024-12-19 18:33] LABS: Glucose Point of Care 212 mg/dL (70-110)
[2024-12-19] MEDS: trazodone 50 mg Tablet PO (18:36)
[2024-12-19] MEDS: apixaban 5 mg Tablet 2.5 MG PO (21:15)
[2024-12-19 21:24] LABS: Glucose Point of Care 159 mg/dL (70-110)
[2024-12-20] VITALS (8 sets, daily range): BP systolic 174–194; BP diastolic 76–91; PULSE 82–105; RESP 16–24; TEMP 36.3–36.9; O2SAT 93–97
[2024-12-20 01:01] LABS: Glucose Point of Care 183 mg/dL (70-110)
[2024-12-20] MEDS: insulin lispro 100 unit/1 mL SUBCUT ×3 (01:01→11:38)
--- NOTE | 2024-12-20 04:32 | PC.NURSE ---
[facility] sent with patient
[2024-12-20 05:33] LABS: Basophils # 0.1 10^3/uL (0.0-0.1); Basophils % 0.7 %; Eosinophils # 0.3 10^3/uL (0.0-0.8); Eosinophils % 3.4 %; Hematocrit 35.8 % (36-47); Lymphocytes # 1.5 10^3/uL (0.8-4.8); Lymphocytes % 16.4 %; Mean Corpuscular HGB Conc 30.4 g/dL (30-55); Mean Corpuscular Hemoglobin 27.3 pg (27-33); Mean Corpuscular Volume 89.7 fl (85-98); Mean Platelet Volume 11.6 fL (7.4-10.4); Monocytes # 1.3 10^3/uL (0.2-0.9); Monocytes % 13.8 %; Neutrophils # 5.91 10^3/uL (1.8-7.7); Neutrophils % 65.4 %; Nucleated Red Blood Cells % 0 %; Platelet Count 199 10^3/cmm (157-399); Red Blood Count 3.99 10^6/uL (3.85-5.65); Red Cell Distribution Width 12.8 % (12.1-15.1); White Blood Count 9.04 10^3/uL (3.29-11.43)
[2024-12-20 05:49] LABS: Alanine Aminotransferase 6 U/L (0-33); Albumin Level 3.3 g/dL (3.5-5.2); Alkaline Phosphatase 57 U/L (35-105); Anion Gap 14.5 (5-19); Aspartate Amino Transferase 13 U/L (0-32); Blood Urea Nitrogen 22 mg/dL (8-23); Calcium 8.6 mg/dL (8.5-10.5); Carbon Dioxide 25 mmol/L (22-29); Chloride 108 mmol/L (98-107); Creatinine Clr Calc Pharmacy 30.3707; Globulin 2.6 g/dL (1.3-4.6); Glucose 158 mg/dL (65-115); Osmolality Calculated 305 mOsm/kg (285-295); Potassium 3.5 mmol/L (3.5-5.1); Sodium 144 mmol/L (136-145); Total Bilirubin 0.4 mg/dL (0.15-1.2); Total Protein 5.9 g/dL (6.6-8.7)
[2024-12-20 06:42] LABS: Glucose Point of Care 156 mg/dL (70-110)
[2024-12-20] MEDS: cefTRIAXone 1,000 mg SDV 1000 MG IVP (08:49)
[2024-12-20] MEDS: apixaban 5 mg Tablet 2.5 MG PO ×2 (08:49→20:11)
[2024-12-20] MEDS: atorvastatin 40 mg Tablet 80 MG PO (08:49)
[2024-12-20] MEDS: aspirin 81 mg EC Tablet PO (08:49)
[2024-12-20] MEDS: pantoprazole 40 mg SDV IVP (08:50)
[2024-12-20 11:24] LABS: Glucose Point of Care 165 mg/dL (70-110)
--- NOTE | 2024-12-20 12:34 | P.PN_ITS ---
Subjective 2 Subjective: Patient is awake. Speech is dysarthric but mostly understandable with time. She reports that she is very hungry and thirsty. We discussed the reason for n.p.o. status. There is concern for aspiration risk. Working with speech therapy. Left-sided extremities remain ataxic. She denies other new complaints. Denies fevers or chills. Denies any pain. Medications: Reviewed: Yes Vitals/I&O/Wt Last Vital Signs Temp 97.4 F L 12/20/24 12:13 Pulse 87 12/20/24 12:13 Resp 18 12/20/24 12:13 BP 187/84 12/20/24 12:13 Pulse Ox 96 12/20/24 12:13 O2 Del Method Nasal Cannula 12/20/24 12:13 O2 Flow Rate 2 12/20/24 08:58 12/19/24 12/20/24 12/20/24 22:59 06:59 14:59 Intake Total 1000 / 1000 Output Total 1000 / 1000 Balance 1000 / 1000 -1000 / -1000 Weight last 48 hrs Weight 69.003 kg Weight 66.406 kg Physical Exam 2 Narrative: General: Patient is awake. Speech is dysarthric. Head: Normocephalic. Atraumatic. EOM intact. Neck: No JVD. Cardiovascular: RRR. No gallops. No murmurs. Lungs: Clear to auscultation, no use of accessory muscles, no crackles or wheezes. Skin: No jaundice. No rashes. Abdomen: Normal bowel sounds, abdomen soft and nontender. Extremities: No cyanosis or clubbing. Musculoskeletal: No swollen or erythematous joints. Neurological: Moves all 4 extremities. No myoclonus. Left-sided extremities are ataxic. Urinary Catheter Management: Muñoz: Cath Placed During This Visit: yes Reason for Continuing Indwelling Catheter: Accurate Measurement of Urinary Output in Critically Ill Patients Urinary Catheter Date of Insertion: 12/17/24 Urinary Catheter Time of Insertion: 22:19 Data 12/20/24 05:26 12/20/24 05:26 A&P Assessment and plan (1) Dysarthria: Patient remains dysarthric secondary to stroke High aspiration risk Currently n.p.o., awaiting further speech therapy recommendations Continue IV fluids until oral intake improves (2) Cerebrovascular accident: Patient received tPA Continue anticoagulation with apixaban, may need to adjust dose and Continue aspirin Continue high intensity statin (3) Congestive heart failure: Patient has history of chronic heart failure with preserved ejection fraction She remains at risk for CHF exacerbation, specimen so volume status (4) Chronic kidney disease: EMMA is resolved Monitor renal function (5) Chronic hypoxic respiratory failure: Chronic hypoxic respiratory failure is on 2 L baseline (6) Type 2 diabetes mellitus: Sliding-scale insulin correction Plan DVT prophylaxis: Apixaban PDMP PDMP Reviewed: Not Reviewed Attestations 2 Medical Necessity Statement*: Patient requires ongoing hospitalization for therapy, speech therapy evaluation, serial labs, antibiotics, and supportive care. Coding Level of Care Code Acute Code for [facility] Fwd Diagnoses Dysarthria R47.1 Cerebrovascular accident I63.9 Congestive heart failure I50.9 Chronic kidney disease N18.9 Chronic hypoxic respiratory failure J96.11 Type 2 diabetes mellitus E11.9
[2024-12-20] MEDS: dextrose 5%-sod chloride 0.45% 1,000 ML 75 ML IV ×2 (13:56)
[2024-12-20 16:27] LABS: Glucose Point of Care 129 mg/dL (70-110)
[2024-12-20 16:27] LABS: Glucose Point of Care 168 mg/dL (70-110)
[2024-12-20] MEDS: trazodone 50 mg Tablet PO (17:24)
[2024-12-21 00:57] LABS: Glucose Point of Care 157 mg/dL (70-110)
[2024-12-21] MEDS: insulin lispro 100 unit/1 mL SUBCUT ×4 (00:57→18:42)
[2024-12-21] MEDS: dextrose 5%-sod chloride 0.45% 1,000 ML 75 ML IV (00:58)
[2024-12-21 04:32] VITALS: BP 168/82; PULSE 88; RESP 16; TEMP 36.8; O2SAT 96
[2024-12-21 05:21] LABS: Albumin Level 3.4 g/dL (3.5-5.2); Anion Gap 11.4 (5-19); Blood Urea Nitrogen 12 mg/dL (8-23); Calcium 8.9 mg/dL (8.5-10.5); Carbon Dioxide 28 mmol/L (22-29); Chloride 107 mmol/L (98-107); Glucose 153 mg/dL (65-115); Magnesium 1.7 mg/dL (1.7-2.3); Phosphorus 2.2 mg/dL (2.5-4.5); Potassium 3.4 mmol/L (3.5-5.1); Sodium 143 mmol/L (136-145)
[2024-12-21 06:16] LABS: Glucose Point of Care 165 mg/dL (70-110)
[2024-12-21 07:50] VITALS: BP 190/79; PULSE 92; RESP 16; TEMP 36.8; O2SAT 91
[2024-12-21 07:55] VITALS: PULSE 112; RESP 18; O2SAT 96
[2024-12-21] MEDS: lidocaine 1% 5 ML in potassium chloride premix 100 ML 52.5 ML IV (09:03)
[2024-12-21] MEDS: hyDRALAzine 25 mg Tablet PO ×3 (09:04→19:57)
[2024-12-21] MEDS: cefTRIAXone 1,000 mg SDV 1000 MG IVP (09:04)
[2024-12-21] MEDS: atorvastatin 40 mg Tablet 80 MG PO (09:04)
[2024-12-21] MEDS: apixaban 5 mg Tablet 2.5 MG PO (09:04)
[2024-12-21] MEDS: pantoprazole DR 40 mg Tablet PO (09:04)
[2024-12-21] MEDS: aspirin 81 mg EC Tablet PO (09:04)
--- NOTE | 2024-12-21 11:10 | P.PN_ITS ---
Subjective 2 Subjective: Patient is awake. Her speech remains dysarthric but slightly improved from yesterday. She states that she does not understand everything is fully going on. She denies fevers or chills. Discussed improvement in her speech but the swallow function has not improved. Will see how she does today with speech therapy. There is a chance she is going to need a feeding tube. Medications: Reviewed: Yes Vitals/I&O/Wt Last Vital Signs Temp 98.2 F 12/21/24 07:50 Pulse 112 H 12/21/24 07:55 Resp 18 12/21/24 07:55 BP 190/79 12/21/24 07:50 Pulse Ox 96 12/21/24 07:55 O2 Del Method Room Air 12/21/24 07:55 O2 Flow Rate 3 12/21/24 04:32 12/20/24 12/21/24 12/21/24 22:59 06:59 14:59 Intake Total 827.5 / 1827.5 605 / 605 Output Total 600 / 1600 Balance -600 / -600 827.5 / 227.5 605 / 605 Weight last 48 hrs Weight 64.229 kg Weight 69.003 kg Physical Exam 2 Narrative: General: Patient is awake. Speech remains dysarthric. Head: Normocephalic. Atraumatic. EOM intact. Neck: No JVD. Cardiovascular: RRR. No gallops. No murmurs. Lungs: Clear to auscultation, no use of accessory muscles, no crackles or wheezes. Skin: No jaundice. No rashes. Abdomen: Normal bowel sounds, abdomen soft and nontender. Extremities: No cyanosis or clubbing. Musculoskeletal: No swollen or erythematous joints. Neurological: Moves all 4 extremities. No myoclonus. Left-sided extremities are ataxic. Urinary Catheter Management: Muñoz: Cath Placed During This Visit: yes Reason for Continuing Indwelling Catheter: Other Urinary Catheter Date of Insertion: 12/17/24 Urinary Catheter Time of Insertion: 22:19 Data 12/20/24 05:26 12/21/24 03:15 A&P Assessment and plan (1) Dysarthria: Patient remains dysarthric secondary to stroke High aspiration risk Speech therapy following, still n.p.o. due to aspiration risk May need feeding tube Continue IV fluids until oral intake improves (2) Cerebrovascular accident: Patient received tPA Continue anticoagulation with apixaban Continue aspirin Continue high intensity statin (3) Congestive heart failure: Patient has history of chronic heart failure with preserved ejection fraction She remains at risk for CHF exacerbation, monitor volume status (4) Chronic kidney disease: Monitor renal function (5) Chronic hypoxic respiratory failure: Chronic hypoxic respiratory failure is on 2 L baseline (6) Type 2 diabetes mellitus: Sliding-scale insulin correction Plan DVT prophylaxis: Apixaban PDMP PDMP Reviewed: Not Reviewed Attestations 2 Medical Necessity Statement*: Patient requires ongoing hospitalization for pt/ot therapy, speech therapy, serial labs, and supportive care. Coding Level of Care Code Acute Code for [facility] Diagnoses Dysarthria R47.1 Cerebrovascular accident I63.9 Congestive heart failure I50.9 Chronic kidney disease N18.9 Chronic hypoxic respiratory failure J96.11 Type 2 diabetes mellitus E11.9
[2024-12-21 12:00] VITALS: BP 172/72; PULSE 118; RESP 16; TEMP 36.8; O2SAT 97
[2024-12-21 12:09] LABS: Glucose Point of Care 152 mg/dL (70-110)
--- NOTE | 2024-12-21 14:01 | PC.SOCIAL ---
IMM updated IMM dated and initialed, Copy placed in chart and copy given to patient
[2024-12-21 15:43] VITALS: BP 121/83; PULSE 108; RESP 17; TEMP 37.1; O2SAT 96
[2024-12-21] MEDS: dextrose 5%-sod chloride 0.45% 1,000 ML 50 ML IV (16:33)
[2024-12-21 17:03] LABS: Glucose Point of Care 166 mg/dL (70-110)
[2024-12-21 19:56] VITALS: BP 174/78; PULSE 112; RESP 18; TEMP 36.8; O2SAT 97
[2024-12-21] MEDS: apixaban 5 mg Tablet PO (19:57)
[2024-12-21] MEDS: trazodone 50 mg Tablet PO (19:57)
[2024-12-22] VITALS (7 sets, daily range): BP systolic 109–152; BP diastolic 76–88; PULSE 98–120; RESP 16–18; TEMP 36.7–37.2; O2SAT 95–98
[2024-12-22] MEDS: insulin lispro 100 unit/1 mL SUBCUT (00:29)
[2024-12-22 00:34] LABS: Glucose Point of Care 150 mg/dL (70-110)
[2024-12-22] MEDS: hyDRALAzine 20 mg/mL INJ 1 mL 10 MG IVP (04:28)
[2024-12-22 05:18] LABS: Glucose Point of Care 119 mg/dL (70-110)
[2024-12-22 05:47] LABS: Albumin Level 3.2 g/dL (3.5-5.2); Anion Gap 15.4 (5-19); Blood Urea Nitrogen 9 mg/dL (8-23); Calcium 8.6 mg/dL (8.5-10.5); Carbon Dioxide 24 mmol/L (22-29); Chloride 105 mmol/L (98-107); Creatinine Clr Calc Pharmacy 35.3929; Glucose 145 mg/dL (65-115); Phosphorus 2.5 mg/dL (2.5-4.5); Potassium 3.4 mmol/L (3.5-5.1); Sodium 141 mmol/L (136-145)
[2024-12-22] MEDS: aspirin 81 mg EC Tablet PO (09:23)
[2024-12-22] MEDS: cefTRIAXone 1,000 mg SDV 1000 MG IVP (09:23)
[2024-12-22] MEDS: pantoprazole DR 40 mg Tablet PO (09:23)
[2024-12-22] MEDS: atorvastatin 40 mg Tablet 80 MG PO (09:24)
[2024-12-22] MEDS: hyDRALAzine 25 mg Tablet PO (09:24)
[2024-12-22] MEDS: apixaban 5 mg Tablet PO (09:24)
--- NOTE | 2024-12-22 10:19 | PC.NUTR ---
Pt currently NPO and not meeting estimated needs. If tube feeding medically necessary, recommend Glucerna 1.5 continuous beginning at 10mls/hr and increasing 10mls Q4-8H as tolerated until goal rate of 30mls/hr is reached with FWF of 120mls Q6H or per MD discretion. If bolus tube feeds preferred, recommend Glucerna 1.5, 3 cartons (237mls)/day, regimen per Pt's choice, but recommended 8am/ 1pm/ 6pm with FWF of 60mls/before and after bolus feed.
--- NOTE | 2024-12-22 10:49 | PC.NURSE ---
0915: While at bedside with FELECIA Bello, myself, and case management Suzanna, the pt reported she wanted to go back to the nursing on hospice opposed to getting a feeding tube placed. 1045: This nurse and case management Suzanna were at bedside and Suzanna confirmed with pt that she wanted to go to the detention on hospice. To which the pt confirmed she did.
--- NOTE | 2024-12-22 11:13 | P.DS_ITS ---
Discharge Providers Date of Admission: 12/17/24 19:11 Date of Discharge: December 22, 2024 Attending Provider at Admission: Dexter Escalante MD Attending Provider at Discharge: Bon Anderson MD Consults: Neurology Primary Care Provider: El Price MD Diagnoses at Discharge Discharge Diagnosis (1) Dysarthria: Status: Acute (2) Cerebrovascular accident: Status: Acute (3) Congestive heart failure: Status: Acute (4) Chronic kidney disease: Status: Chronic (5) Chronic hypoxic respiratory failure: Status: Acute (6) Type 2 diabetes mellitus: Status: Acute Reason for Visit Reason for Visit: left sided weakness Hospital Course Hospital Course Cynthia Taveras is a 84 year old female with history of chronic hypoxia on 3 L at baseline, diastolic CHF, insulin-dependent diabetes, resistant hypertension and multiple other comorbidities who presented with strokelike symptoms. Neurology was consulted and she was treated with TNKase. She was found to have persistent dysphagia and left-sided deficits. She worked with physical, occupational and speech therapies. She had persistent dysphagia with improvement in speech. Feeding tube was discussed and considered however patient ultimately adamantly declined. She requested to transition to hospice care. Patient subsequently discharged back to nursing facility on hospice care. Physical Exam Narrative: General: Patient is awake. Speech dysarthric. Head: Normocephalic. Atraumatic. EOM intact. Neck: No JVD. Cardiovascular: RRR. No gallops. No murmurs. Lungs: Clear to auscultation, no use of accessory muscles, no crackles or wheezes. Skin: No jaundice. No rashes. Abdomen: Normal bowel sounds, abdomen soft and nontender. Extremities: No cyanosis or clubbing. Musculoskeletal: No swollen or erythematous joints. Neurological: Moves all 4 extremities. No myoclonus. Left-sided extremities ataxic. Urinary Catheter Management: Muñoz: Cath Placed During This Visit: yes Reason for Continuing Indwelling Catheter: Other Urinary Catheter Date of Insertion: 12/17/24 Urinary Catheter Time of Insertion: 22:19 Discharge Data Studies Completed and Pending Completed Studies During Hospitalization Category Date Time Status CT abdomen renal stone [CT kidney stone 14581] Routine Cat Scan 12/18/24 09:[address] head thrombolytic [id number] Stat Cat Scan 12/17/24 16:[address] head wo con* [id number] Routine Cat Scan 12/18/24 19:[address] head wo con* [id number] Stat Cat Scan 12/17/24 20:41 Completed XR chest 1V portable [id number] Routine Exams 12/18/24 09:40 Completed XR chest 1V portable [id number] Stat Exams 12/17/24 16:33 Completed MR head wo con* [id number] Routine MRI 12/18/24 10:41 Completed CV. echo lmt wo/w bubble [id number] Routine Ultrasound 12/18/24 20:57 Completed Pending at discharge Category Date Time Status Blood Culture Stat Lab 12/17/24 17:30 Results Radiology Impressions Abdomen/Pelvis CT 12/18/24 09:40 IMPRESSION: 1. Atrophic left kidney. 2. No acute subdiaphragmatic pathology. Chest X-Ray 12/18/24 09:40 IMPRESSION: No acute findings. Head MRI 12/18/24 10:41 IMPRESSION: 1. Multifocal acute infarcts in the bilateral cerebellar hemispheres [id number] as well as the midbrain and wendy. 2. Chronic left cerebellar infarct as well as bilateral basal ganglia lacunar infarcts. 3. Moderate periventricular and subcortical chronic ischemic small-vessel diseas 20 e. ADDENDUM: 12/18/24 1537 COMMENT: THIS REPORT CONTAINS FINDINGS THAT MAY BE CRITICAL TO PATIENT CARE. The exam findings were verbally communicated by me to BECCA MOY via telephone conference at 3:35 PM ADMINISTRATIVE SERVICES OFFICER on 12/18/2024. The findings were acknowledged and understood. Head CT 12/18/24 19:41 IMPRESSION: Negative for intracranial hemorrhage or mass effect. Laboratory Results WBC 9.04 10^3/uL (3.29-11.43) 12/20/24 05:26 RBC 3.99 10^6/uL (3.85-5.65) 12/20/24 05:26 Hgb 10.90 g/dL (11.27-16.99) L 12/20/24 05:26 Hct 35.8 % (36-47) L 12/20/24 05:26 MCV 89.7 fl (85-98) 12/20/24 05:26 MCH 27.3 pg (27-33) 12/20/24 05: MCHC 30.4 g/dL (30-55) 12/20/24 05:26 RDW 12.8 % (12.1-15.1) 12/20/24 05:26 Plt Count 199 10^3/cmm (157-399) 12/20/24 05:26 MPV 11.6 fL (7.4-10.4) H 12/20/24 05:26 Neut % (Auto) 65.4 % 12/20/24 05:26 Lymph % (Auto) 16.4 % 12/20/24 05:26 Bath % (Auto) 13.8 % 12/20/24 05:26 Eos % (Auto) 3.4 % 12/20/24 05:26 Baso % (Auto) 0.7 % 12/20/24 05:26 Neut # (Auto) 5.91 10^3/uL (1.8-7.7) 12/20/24 05:26 Lymph # (Auto) 1.5 10^3/uL (0.8-4.8) 12/20/24 05:26 Bath # (Auto) 1.3 10^3/uL (0.2-0.9) H 12/20/24 05:26 Eos # (Auto) 0.3 10^3/uL (0.0-0.8) 12/20/24 05:26 Baso # (Auto) 0.1 10^3/uL (0.0-0.1) 12/20/24 05:26 Nucleated RBC % (auto) 0 % 12/20/24 05:26 Nucleated RBCs # 0.0 /100WBC 12/20/24 05:26 PT 12.80 SECONDS (12.1-14.9) 12/17/24 16:40 INR 0.90 (0.8-1.2) 12/17/24 16:40 APTT 25.4 SECONDS (23.9-36.7) 12/17/24 16:40 Sodium 141 mmol/L (136-145) 12/22/24 05:09 Potassium 3.4 mmol/L (3.5-5.1) L 12/22/24 05:09 Chloride 105 mmol/L (98-107) 12/22/24 05:09 Carbon Dioxide 24 mmol/L (22-29) 12/22/24 05:09 Anion Gap 15.4 (5-19) 12/22/24 05:09 BUN 9 mg/dL (8-23) 12/22/24 05:09 Creatinine 1.1 mg/dL (0.5-0.9) H 12/22/24 05:09 GFR Calculation Not Reportable 12/22/24 05:09 Glucose 145 mg/dL (65-115) H 12/22/24 05:09 POC Glucose 119 mg/dL (70-110) H 12/22/24 05:05 Estimat Average Glucose 180 12/17/24 16:40 Hemoglobin A1c 7.9 % (4.0-6.0) H 12/17/24 16:40 Calculated Osmolality 305 mOsm/kg (285-295) H 12/20/24 05:26 Lactic Acid 1.2 mmol/L (0.5-2.2) 12/17/24 16:40 Calcium 8.6 mg/dL (8.5-10.5) 12/22/24 05:09 Phosphorus 2.5 mg/dL (2.5-4.5) 12/22/24 05:09 Magnesium 1.7 mg/dL (1.7-2.3) 12/21/24 03:15 Total Bilirubin 0.4 mg/dL (0.15-1.2) 12/20/24 05:26 AST 13 U/L (0-32) 12/20/24 05:26 ALT 6 U/L (0-33) 12/20/24 05:26 Alkaline Phosphatase 57 U/L (35-105) 12/20/24 05:26 NT-Pro-B Natriuret Pep 1421 pg/mL (0-450) H 12/17/24 16:40 Total Protein 5.9 g/dL (6.6-8.7) L 12/20/24 05:26 Albumin 3.2 g/dL (3.5-5.2) L 12/22/24 05:09 Globulin 2.6 g/dL (1.3-4.6) 12/20/24 05:26 Triglycerides 169 mg/dL (0-150) H 12/17/24 16:40 Cholesterol 135 mg/dL (0-200) 12/17/24 16:40 LDL Cholesterol, Calc 57 mg/dL (50-129) 12/17/24 16:40 HDL Cholesterol 44 mg/dL (60-100) L 12/17/24 16:40 LDL/HDL Ratio 1.30 RATIO (0.00-3.22) 12/17/24 16:40 Cholesterol/HDL Ratio 3.07 mg/dL (0.0-4.40) 12/17/24 16:40 Vitamin B12 692 pg/mL (232-1245) 12/17/24 16:40 Urine Color Yellow (Yellow) 12/17/24 17:58 Urine Appearance Clear (CLEAR) 12/17/24 17:58 Urine pH 5.5 (5-7) 12/17/24 17:58 Ur Specific [place] 1.012 (1.005-1.030) 12/17/24 17:58 Urine Protein 2+ (Negative) A 12/17/24 17:58 Urine Glucose (UA) Negative (Normal) 12/17/24 17:58 Urine Ketones Negative (Negative) 12/17/24 17:58 Urine Blood Negative (Negative) 12/17/24 17:58 Urine Nitrate Negative (Negative) 12/17/24 17:58 Urine Bilirubin Negative (Negative) 12/17/24 17:58 Urine Urobilinogen 0.2 mg/dL (Negative) 12/17/24 17:58 Ur Leukocyte Esterase Negative (Negative) 12/17/24 17:58 Urine RBC 0-4 /hpf (0-2) H 12/17/24 17:58 Urine WBC 0-4 /hpf (0-5) H 12/17/24 17:58 Ur Squamous Epith Cells 0-4 /hpf (0-5) H 12/17/24 17:58 Amorphous Sediment Not Reportable 12/17/24 17:58 Urine Bacteria Trace /hpf (NONE) 12/17/24 17:58 Nasal MRSA (PCR) Mrsa detected (Not Detecte) A 12/18/24 15:31 Influenza A (PCR) Negative (Negative) 12/17/24 17:22 Influenza Type B (PCR) Negative (Negative) 12/17/24 17:22 RSV (PCR) Negative (Negative) 12/17/24 17:22 SARS-CoV-2 (PCR) Negative (Negative) 12/17/24 17:22 Vitals Last Vital Signs Temp 98.9 F 12/22/24 07:36 Pulse 113 H 12/22/24 10:00 Resp 18 12/22/24 10:00 BP 152/88 02/27/25 07:36 Pulse Ox 96 12/22/24 10:00 O2 Del Method Nasal Cannula 12/22/24 10:00 O2 Flow Rate 2 12/22/24 10:00 Discharge Plan Discharge Patient Disposition: Hospice - Medical Facility Condition: Stable Prescriptions: New atorvastatin 40 mg Tablet 80 mg PO BEDTIME 30 Days Qty: 30 0RF Eliquis 5 mg Tablet 5 mg PO BID@0900,2100 30 Days Qty: 60 0RF Continued metoprolol tartrate 25 mg tablet 25 mg PO BID multivitamin Tablet 1 tab PO QAM trazodone 50 mg tablet 50 mg PO QPM clopidogrel 75 mg tablet 75 mg PO QAM amlodipine 10 mg tablet 10 mg PO QAM omeprazole 20 mg capsule,delayed release(DR/EC) 20 mg PO BID benazepril 20 mg tablet 20 mg PO QAM insulin lispro [Humalog U-100 Insulin] 100 unit/mL Solution See Rx Instructions .ROUTE .COMPLEX Qty: 10 0RF Rx Instructions: Inject, subcut, 3 times daily, after meals, based on sliding scale provided clonidine HCl 0.2 mg tablet 0.1 mg PO BID 30 Days Qty: 30 0RF fluoxetine 40 mg capsule 40 mg PO 1XD loratadine 10 mg Tablet 10 mg PO DAILY Held potassium chloride 20 mEq tablet extended release 20 meq PO QAM Hold Instructions: Resume on 12/28/24. Hold until Lasix resumes. furosemide 20 mg tablet 40 mg PO QAM Qty: 60 3RF Hold Instructions: Resume on 12/28/24. Hold until oral intake improves. Discontinued lovastatin 40 mg tablet 40 mg PO QAM aspirin 81 mg Tablet,Delayed Release (Dr/Ec) 81 mg PO DAILY celecoxib 200 mg capsule 200 mg PO BID Discharge Orders: Discharge Order (Routine); Ordered 12/22/24 Ordered By: Bon Anderson Referrals: [facility] [Outside] Discharge Diet: Advance as tolerated Discharge Activity: Increase activity as tolerated Patient Instructions: Apixaban (By mouth), Hospice Care (GEN) Activity Restrictions/Additional Instructions: 1. Follow with hospice care. 2. Diet as tolerated. Discharge Attestations Time Spent in Discharge Care*: greater than 30 min Status at Discharge: Cognitive status at discharge: cognitively intact , Behavioral status at discharge: cooperative , Quality Metrics Clinical Quality Measures [ No reported AMI, CVA or VTE this stay] Coding Level of Care Code Acute Code for [facility] Diagnoses Dysarthria R47.1 Cerebrovascular accident I63.9 Congestive heart failure I50.9 Chronic kidney disease N18.9 Chronic hypoxic respiratory failure J96.11 Type 2 diabetes mellitus E11.9
--- NOTE | 2024-12-22 11:25 | PC.OT ---
OT TREATMENT ATTEMPTED IN A.M. PATIENT IS SLEEPING SOUNDLY.
[2024-12-22 11:52] LABS: Glucose Point of Care 178 mg/dL (70-110)
--- NOTE | 2024-12-22 13:09 | PC.NURSE ---
1255: Report called to GRACIA Mckeon at [facility]. All questions and concerns addressed and answered. all updated meds discussed. Residual of stroke discussed and discharge plan of hospice with lydia butler discussed.
== END 2024-12-22 14:50 | disposition hospice, inpatient (51) | DRG 62 ==
LOC: ER 19:13 → ICU 20:56 → MEDSURG 12-20 04:22
PROVIDERS: Student in an Organized Health Care Education/Training Program; Admitting Provider Internal Medicine; Emergency Provider Emergency Medicine; PCP Internal Medicine; Visit Provider Internal Medicine
DX: I63.9 Cerebral infarction, unspecified (principal); I13.0 Hypertensive heart and chronic kidney disease with heart failure and stage 1 through stage 4 chronic kidney disease, or unspecified chronic kidney disease; I50.30 Unspecified diastolic (congestive) heart failure; J96.11 Chronic respiratory failure with hypoxia; N17.9 Acute kidney failure, unspecified; E11.22 Type 2 diabetes mellitus with diabetic chronic kidney disease; N18.9 Chronic kidney disease, unspecified; Z99.81 Dependence on supplemental oxygen; R47.1 Dysarthria and anarthria; R13.10 Dysphagia, unspecified; R29.703 NIHSS score 3; E86.0 Dehydration; R11.10 Vomiting, unspecified; E78.5 Hyperlipidemia, unspecified; K21.9 Gastro-esophageal reflux disease without esophagitis; Z79.4 Long term (current) use of insulin; Z79.82 Long term (current) use of aspirin; Z79.02 Long term (current) use of antithrombotics/antiplatelets; Z87.891 Personal history of nicotine dependence
CPT/HCPCS: 36415; 36416; 51702; 70450; 70551; 71045; 74176; 80048; 80053; 80061; 80069; 81001; 82607; 82962; 83036; 83605; 83735; 83880; 85025; 85610; 85730; 87040; 87637; 92507; 92526; 92610; 93005; 94640; 96372; 96374; 96375; 96376; 97116; 97161; 97167; 97530; 97535; 99291; C8924; J0360; J0696; J1815; J2405; J2470; J3101; J3480; J3490; J7030; J7040; J7613; J7799